=== PATIENT | female | born 1940 | race Caucasian/White ===

== ENCOUNTER 2023-12-05 11:44 | Outpatient (AMB) | payer MEDICARE, SELFPAY ==
--- NOTE | 2023-12-05 11:48 | MHC.PC.OV ---
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 Is last menstrual period known: No Post menopausal: No Patient : No Allergies diazepam [From Valium] Adverse Reaction (Mild, Verified 12/05/23 12:21) AMS Medication List - Last Reconciled 12/05/23 by Jessenia Joyner, MA[facility] albuterol sulfate 90 mcg/actuation inhalation apixaban (Eliquis) 5 mg PO BID bisoprolol fumarate 5 mg PO DAILY udapdmymzjn-rinacuudy-owrhjouo 200-62.5-25 mcg (Trelegy Ellipta) 1 ea inhalation DAILY furosemide 20 mg PO DAILY levothyroxine 100 mcg PO DAILY sacubitril-valsartan 49-51 mg (Entresto) 1 tab PO BID Tobacco use date assessed: 12/05/23 Fall risk assessment: 2 + Falls in past year Last assessed Fall Risk: 12/05/23 Dental Screening Dental Screen Date: 12/05/23 Did you have a dental visit in the last 12 months?: No Did you have a dental problem in the last 6 months where you did not have access to dental care?: No HPI HPI Comments History of Present Illness Details refill lasix, BB Pulm Card PFSH Family History (Updated 12/05/23 @ 11:56 by Emily Neumann) Mother Alcohol abuse Father Alcohol abuse Daughter FH: mental illness Social History Housing: House Patient Tobacco Use Status: Never used Tobacco e-Cigarette/Vaping Use: Never Used Second Hand Smoke Exposure: No Patient : No service: No Current occupational status: retired Current occupational exposures/hazards: No Cognitive needs: No Hearing needs: No Vision needs: Yes Questionnaire PHQ-9 Over the last 2 weeks, how often have you been bothered by any of the following problems? 1. Little interest or pleasure in doing things: not at all 2. Feeling down, depressed, or hopeless: not at all 3. Trouble falling or staying asleep, or sleeping too much: several days 4. Feeling tired or having little energy: several days 5. Poor appetite or overeating: not at all 6. Feeling bad about yourself - or that you are a failure or have let yourself or your family down: not at all 7. Trouble concentrating on things, such as reading the newspaper or watching television: not at all 8. Moving or speaking so slowly that other people could have noticed. Or the opposite - being so fidgety or restless that you have been moving around a lot more than usual: not at all 9. Thoughts that you would be better off or of hurting yourself in some way: not at all Total score: 2 61576 - PHQ-9 Billing: Yes Source: Developed by Drs. Artemio Vo, Lupe Simons, Nils Toro and colleagues, with an educational paloma from [employer]. Thrive Questionnaire Date Thrive assessed: 12/05/23 I am a: Patient What is your living situation today?: I have a steady place to live Within the past 12 months, did the food you bought not last and you didn't have the money to get more?: Never true Within the past 12 months, did you worry whether your food would run out before you got money to buy more?: Never true Do you have trouble paying for medicines?: No Do you have trouble getting transportation to medical appointments?: No Do you have trouble paying your heating and electricity bill?: No Do you have trouble taking care of your child, family member or friend?: No Do you have trouble with day-to-day activities such as bathing, preparing meals, shopping, managing finances, etc.?: No Are you currently unemployed and looking for a job?: No Are you interested in more education?: No Please select the resources that you would like help with: None Currently or been in a relationship where the following occur: No concerns reported THRIVE Score: 0 AUDIT C Alcohol Use Questionnaire (AUDIT-C) 1. How often do you have a drink containing alcohol?: Monthly or less 2. How many drinks containing alcohol do you have on a typical day when you are drinking?: 1 or 2 3. How often do you have six or more drinks on one occasion?: Never Total Score: 1 FLYNN-7 AMB Questionnaire FLYNN-7 Date FLYNN - 7 assessed: 12/05/23 Feeling nervous, anxious, or on edge: 0 = Not at all Not being able to stop or control worryin = Not at all Worrying too much about different things: 0 = Not at all Trouble relaxin = Not at all Being so restless that it is hard to sit still: 0 = Not at all Becoming easily annoyed or irritable: 0 = Not at all Feeling afraid as if something awful might happen: 0 = Not at all Total FLYNN-7 score (0-4 normal; 5-9 mild; 10-14 moderate; 15-21 severe): 0 Source: Developed by Drs. Artemio Vo, Lupe Simons, Nils Toro and colleagues, with an educational paloma from [employer]. FLYNN-7 Assessment Billing FLYNN-7 Assessment Tool: FLYNN-7 Assessment 80906 Physical exam (Primary Care) Vital Signs: Last Vital Signs Temp 98.1 F 12/05/23 11:57 Pulse 61 12/05/23 11:57 BP 108/58 L 12/05/23 11:57 Pulse Ox 96 12/05/23 11:57 Oxygen Delivery Method Room Air 12/05/23 11:57 BMI result Body Mass Index 35.4 Tobacco/Smoking Status: Tobacco use Status Tobacco use date assessed 12/05/23 12/05/23 12:00 Patient Tobacco Use Status Never used Tobacco 12/05/23 12:00 e-Cigarette/Vaping Use Never Used 12/05/23 12:00 PHQ-9: PHQ-9 Score PHQ-9: Total score 2 12/05/23 12:05 Thrive Assessment: Date of Thrive Assessment Date Thrive assessed 12/05/23 12/05/23 12:05 Currently or been in a relationship where the following occur: No concerns reported Assessment and Plan Assessment & Plan Medications: New bisoprolol fumarate 5 mg PO DAILY 90 tabs 0RF furosemide 20 mg PO DAILY 90 tabs 0RF Coding Additional Codes FLYNN-7 Assessment Billing - FLYNN-7 Assessment Tool: FLYNN-7 Assessment 54431 ([id number])
[2023-12-05 11:57] VITALS: BP 108/58; PULSE 61; TEMP 36.7; O2SAT 96; BMI 35.4
--- NOTE | 2023-12-05 12:32 | A.OFFVIS_ITS ---
Intake Vital Signs 12/05/23 11:57 12/05/23 12:35 Height 5 ft 1 in Weight 187 lb 2 oz BMI 35.4 35.4 BP 108/58 L Blood Pressure Location Rt brachial Position Sitting Pulse 61 Pulse Source Pulse Oximeter Temp 98.1 F Temp Source Temporal Artery Scan Pulse Oximetry (%) 96 Oxygen Delivery Method Room Air Intake Visit Reasons: farhat possible annual if able needed one since 11/13 Allergies amoxicillin Allergy (Mild, Verified 12/06/23 09:54) Rash diazepam [From Valium] Adverse Reaction (Mild, Verified 12/05/23 12:21) AMS lisinopril Adverse Reaction (Mild, Verified 12/06/23 09:54) Cough Medication List - Last Reconciled 12/05/23 by SHEIAL Peter- albuterol sulfate 90 mcg/actuation inhalation apixaban (Eliquis) 5 mg PO BID bisoprolol fumarate 5 mg PO DAILY odvpuzddrjg-bdqeheprj-qvhrtjsf 200-62.5-25 mcg (Trelegy Ellipta) 1 ea inhalation DAILY furosemide 20 mg PO DAILY levothyroxine 100 mcg PO DAILY sacubitril-valsartan 49-51 mg (Entresto) 1 tab PO BID Is last menstrual period known: Yes (age 52) Post menopausal: Yes Patient : No Do you need a note to return to daycare/school/sports/work: No HPI HPI Comments History of Present Illness Details 83 y/o F with HTN, HLD, Hypothyroid, 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, SSS s/p pacemaker, PVD, obesity, Vit D def, age related cataracts, CKD, CHF with secondary hyperaldosteronism, Afib with secondary hypercoaguable state, urinary incont, prolapsed bladder s/p sling, MDD, FLYNN, GERD, Osteoporosis, seasonal allergies s/p proplapsed bladder repair 1981, angiogram 2022, herniated lumbar disc repair 1965, Lt breast bx negative 1962, cataract surgery 2001, L hip replacement 2020, tubal ligation 1968, cholecystectomy 2022 Family hx: Father etoh, lung ca Mother breast ca, CHF, sudden cardiac Brother alive Afib Sister alive depression, childhood Sz 6 brothers, 4 sisters. 2 brothers, 1 si ster living 6 children. 5 living. Health Maintenance: Colon done in the past, declines future screen Mammo done in the past, declines future screen Dexa done in the past, declines future screen, + osteoporosis s/p fosamax PAP - no longer indicated Vaccines - UTD on Shingles, Zoster, Tdap, COVID + boosters, gets annual flu shot, Has had Prevnar 13 & 23 after age 65, has not had Prevnar 15 or 20 PFT 10/2022 Echo 11/29/23 Stress test 2021 Specialists: [facility] Dr Crowley in [place] routine fu, Echo done 2 days ago Here today for AWV. LABS TODAY SHOW NORMAL ELECTROLYTES, BUN 27, CREATININE 1.04, EGFR 50, HEMOGLOBIN A1C 5.6%, NORMAL LFTS, NORMAL ALBUMIN, VITAMIN-D 65.8, TSH 1.99, URINE MICROALBUMIN CREATININE RATIO NORMAL, DIRECT LDL PENDING Exam: Awake, alert, appears younger than stated age MMM RRR LS CTAB No edema BLE, skin intact, legs hairless, decreased PP with varicosities Mood and affect appropriate Plan: Cont all meds as directed Cont fu with Cards and Pulm Screening labs ordered today Get Flu shot and Pneumococcal vaccines RTO in Apr/May for sAWV, sooner as needed PFSH Medical History (Updated 12/06/23 @ 10:34 by Jessenia Joyner, [facility]) FH: cholecystectomy Cataract Pacemaker Surgical History (Updated 12/05/23 @ 13:29 by Emily Neumann) H/O discectomy History of hip replacement History of bladder surgery Family History (Updated 12/05/23 @ 13:17 by Emily Neumann) Mother Alcohol abuse Cancer Father Alcohol abuse Daughter FH: mental illness Asthma Thyroid disorder Questionnaire Medicare Wellness Checkup What is your age?: 80 or older What gender do you identify with?: female During the past 4 weeks, how much have you been bothered by emotional problems such as feeling anxious, depressed, irritable, sad or downhearted, and blue?: not at all During the past 4 weeks, has your physical & emotional health limited your social activities with family, friends, neighbors, or groups?: not at all During the past 4 weeks, how much bodily pain have you generally had?: very mild pain During the past 4 weeks, was someone available to help you if you needed & wanted help?: yes, as much as I wanted During the past 4 weeks, what was the hardest physical activity you could do for at least 2 minutes?: heavy Can you get to places out of walking distance without help? (For eg., can you travel alone on buses, taxis or drive your car?): Yes Can you go shopping for groceries or clothes without someone's help?: Yes Can you prepare your own meals?: Yes Can you do your housework without help?: Yes Because of any health problems, do you need the help of another person with your personal care needs such as eating, bathing, dressing or getting around the house?: No Can you handle your own money without help?: Yes During the past 4 weeks, how would you rate your health in general?: very good During the past 4 weeks how have things been going for you?: very well; could hardly better Are you having difficulties driving your car?: no Do you always fasten your seat belt when you are in a car?: yes, usually During past 4 weeks, have you been bothered by the following: never: Falling or dizzy when standing up, Sexual problems?, Trouble eating well?, Teeth or denture problems?, Problems using the telephone? and Tiredness or fatigue? Have you fallen 2 or more times in the past year?: No Are you afraid of falling?: No Are you a smoker?: no During the past 4 weeks, how many drinks of wine, beer, or other alcoholic beverages did you have?: no alcohol at all Do you exercise for about 20 minutes 3 or more times a week?: yes, some of the time Have you been given information to help with the following?: no: Hazards in your house that might hurt you? and no: Keeping track of your medications? How often do you have trouble taking medicines the way you have been told to take them?: I always take medicine as prescribed How confident are you that you can control & manage most of your health problems?: very confident What is your race?: White Activity of Daily Living Bathing - sponge bath, tub bath or shower: receives no assistance (gets in/out by self, if usual bathing means Dressing - getting clothes from closets & drawers, including inner/outer garments & fasteners.: gets clothes & gets completely dressed without help Toileting - going to the 'toilet room' for urine/bowel elimination & cleaning self/arranging clothes: goes to toilet room, cleans self, arranges clothes without help Transfer: moves in & out of bed and chair without help (may use support object) Continence: controls urination/bowel movements completely by self Feeding: feeds self without help Total Score: 0 Information obtained from: patient Using telephone: independent Traveling: independent Shopping: independent Preparing meals: independent Housework: independent Taking medicine: independent Managing money: independent PHQ-9 Over the last 2 weeks, how often have you been bothered by any of the following problems? 1. Little interest or pleasure in doing things: not at all 2. Feeling down, depressed, or hopeless: not at all 3. Trouble falling or staying asleep, or sleeping too much: not at all 4. Feeling tired or having little energy: not at all 5. Poor appetite or overeating: not at all 6. Feeling bad about yourself - or that you are a failure or have let yourself or your family down: not at all 7. Trouble concentrating on things, such as reading the newspaper or watching television: not at all 8. Moving or speaking so slowly that other people could have noticed. Or the opposite - being so fidgety or restless that you have been moving around a lot more than usual: not at all 9. Thoughts that you would be better off or of hurting yourself in some way : not at all Total score: 0 Depression Screening Interpretation: Negative Depression Screening Done: Yes 68540 - PHQ-9 Billing: Yes Source: Developed by Drs. Artemio Vo, Lupe Simons, Nils Toro and colleagues, with an educational paloma from [employer]. Physical Exam Vital Signs: Last Vital Signs Temp 98.1 F 12/05/23 11:57 Pulse 61 12/05/23 11:57 BP 108/58 L 12/05/23 11:57 Pulse Ox 96 12/05/23 11:57 Oxygen Delivery Method Room Air 12/05/23 11:57 BMI result Body Mass Index 35.4 Assessment & Plan Assessment & Plan (1) Encounter for annual wellness visit (AWV) in Medicare patient: Code(s): Z00.00 - Encounter for general adult medical examination without abnormal findings (2) HTN (hypertension): Comment: goal <130/80 controlled on current meds Code(s): I10 - Essential (primary) hypertension Qualifiers: Hypertension type: primary hypertension Qualified Code(s): I10 - Essential (primary) hypertension (3) Hypothyroid: Comment: euthyroid on labs today, continue levothyroxine Code(s): E03.9 - Hypothyroidism, unspecified Qualifiers: Hypothyroidism type: acquired Qualified Code(s): E03.9 - Hypot hyroidism, unspecified (4) Asthma-COPD overlap syndrome: Comment: stable w/o exacerbation continue Trelegy and ROSHAN Monitor for worsening SOB, cough. Get annual vaccines as recommended Managed by Pulm PFT 10/23/22 FEV1/FVC 56% Code(s): J44.89 - Other specified chronic obstructive pulmonary disease (5) Hyperlipidemia: Comment: LDL goal < 70 , not currently on statin, check LDL today. Code(s): E78.5 - Hyperlipidemia, unspecified Qualifiers: Hyperlipidemia type: mixed hyperlipidemia Qualified Code(s): E78.2 - Mixed hyperlipidemia (6) CHF (congestive heart failure): Comment: Fluid status euvolemic, no evidence of overload 06/12/22 Echo with EF 40-45% Echo 11/29/23 results pending Managed on entresto, bisoprolol. Encouraged daily wts, fluids restrictions and low Na+ diet. Managed by [employer] Code(s): I50.9 - Heart failure, unspecified Qualifiers: Heart failure type: systolic Heart failure chronicity: chronic Qualified Code(s): I50.22 - Chronic systolic (congestive) heart failure (7) Afib: Comment: with secondary hypercoaguable state on BB and Eliquis managed by [facility] Code(s): I48.91 - Unspecified atrial fibrillation Qualifiers: Atrial fibrillation type: paroxysmal Qualified Code(s): I48.0 - Paroxysmal atrial fibrillation (8) Secondary hypercoagulability disorder: Comment: see Afib Code(s): D68.69 - Other thrombophilia (9) Secondary hyperaldosteronism: Comment: d/t CHF. Pt with activation of RAAS as e/b entresto, stable. Monitor for renal function signs of hypoperfusion. Code(s): E26.1 - Secondary hyperaldosteronism (10) PVD (peripheral vascular disease): Comment: 11/13/23 Quantaflow mild 0.89-0.60, Left foot 0.79 right foot 1.11 e/b above results, encouraged good foot care, instructed pt to monitor s/sx of skin breakdown Code(s): I73.9 - Peripheral vascular disease, unspecified (11) Osteoporosis: Comment: on last DEXA s/p fosomax, denies future imaging. Fall risk preventions, Ca + Vit D Code(s): M81.0 - Age-related osteoporosis without current pathological fracture Qualifiers: Osteoporosis type: age-related Presence of current pathological fracture: without current pathological fracture Qualified Code(s): M81.0 - Age- related osteoporosis without current pathological fracture (12) Negative depression screening: Comment: hx of MDD, negative screening today, not on meds Code(s): Z13.31 - Encounter for screening for depression (13) Encounter for screening examination for mental health and behavioral disorders: Code(s): Z13.30 - Encounter for screening examination for mental health and behavioral disorders, unspecified (14) Obesity with serious comorbidity: Comment: with HTN and CHF BMI > 35 Code(s): E66.9 - Obesity, unspecified Qualifiers: Obesity type: due to excess calories Obesity classification: adult class 2 (BMI 35 - 39.9) Body mass index: BMI 35.0-35.9 Qualified Code(s): E66.01 - Morbid (severe) obesity due to excess calories; Z68.35 - Body mass index [BMI] 35.0-35.9, adult (15) Pacemaker: Comment: SA node dysfunction with permanent pacemaker. Denies palps. Monitor for arrhythmia, cont routine fu with Cards. Code(s): Z95.0 - Presence of cardiac pacemaker (16) Urinary incontinence: Code(s): R32 - Unspecified urinary incontinence Qualifiers: Urinary Incontinence type: mixed stress and urge incontinence Qualified Code(s): N39.46 - Mixed incontinence Plan: . Plan . Orders: Orders Comprehensive Met. Panel 12/05/23 E78.5 - Hyperlipidemia, unspecified, I50.9 - Heart failure, unspecified Hemoglobin A1c 12/05/23 E78.5 - Hyperlipidemia, unspecified, I50.9 - Heart failure, unspecified LDL Cholesterol Direct 12/05/23 E78.5 - Hyperlipidemia, unspecified, I50.9 - Heart failure, unspecified TSH reflex Free T4 12/05/23 E78.5 - Hyperlipidemia, unspecified, I50.9 - Heart failure, unspecified Vitamin D 25-OH Total 12/05/23 E78.5 - Hyperlipidemia, unspecified, I50.9 - Heart failure, unspecified Microalbumin, Random (w Creat) 12/05/23 E78.5 - Hyperlipidemia, unspecified, I50.9 - Heart failure, unspecified Medications: New bisoprolol fumarate 5 mg PO DAILY 90 tabs 0RF furosemide 20 mg PO DAILY 90 tabs 0RF Patient Instructions: RTO in Apr/May fo sAWV, sooner as needed. Walk-In Care (Urgent Care): We Make it Easy Walk-in for urgent medical issues such as: ? Seasonal Allergies ? Insect Bites ? Cough ? Diarrhea ? Acute Asthma Attacks ? Back, Knee or Joint Pain ? Ear Infection ? Fever without a Rash ? Headaches ? Nausea ? [place] Eye, Rash or Skin Irritation ? Sore Throat ? Sports Physicals ? Vomiting Most insurances are accepted. Patients do not need to be part of the [facility] to seek care at the walk-in clinic. Locations [facility] , [place] [address] ? [phone] [facility] [place] Walk-In Care in [place] provides services to ages 18 and over. Open Sunday-Sunday: 8 a.m. to 5 p.m. and Sunday: 9 a.m. to 3 p.m.* *Hours may vary due to staffing availability. To confirm Walk-In Care hours in [place], please call [phone]. [address] [place] [address] ? [phone] [facility] [place] Walk-In Care in [place] provides services to ages 12 and over. Open Sunday-Sunday: 8 a.m. to 5 p.m. Hours may vary due to staffing availability. To confirm Walk-In Care hours in [place], please call [phone]. LABORATORY SERVICES: [facility] Lab ? Primary Location [address] [place] [address] Sunday through Sunday 6:00 AM ? 5:00 PM Sunday 7:00 AM ? 11:00 AM* [phone] The [facility] Lab is centrally located near the front entrance of the [facility] for easy outpatient access. Convenient parking is provided for outpatients. *Hours may vary due to staffing availability. To confirm Laboratory hours for any location, please call [phone]. Offsite Location For your convenience, we offer offsite laboratory draw stations at the following locations: [address] [place] [address] ? [facility] [address] [facility], [address] Sunday through Sunday 7:30 AM ? 1:00 PM* [phone] *Hours may vary due to staffing availability. To confirm Laboratory hours for any location, please call [phone]. [place] ? [address] Sunday through Sunday 6:00 AM ? 3:30 PM* Sunday 6:30 AM ? 3 PM* [phone] *Hours may vary due to staffing availability. To confirm Laboratory hours for any location, please call [phone] [place] [address] Sunday through Sunday 7:30 AM ? 4:00 PM* [phone] *Hours may vary due to staffing availability. To confirm Laboratory hours for any location, please call [phone] [place] [address] Sunday through 9:00 AM ? 4:00 PM* *Hours may vary due to staffing availability. To confirm Laboratory hours for any location, please call [phone]. Appointments are not necessary. Walk-ins are welcome. Like all the departments throughout the [facility], our Lab undergoes frequent reviews to ensure the quality and accuracy of test results, and our staff takes special pride in its status as a nationally accredited facility. Patient Portal: ONE PATIENT. ONE RECORD. BETTER CARE. [facility] has a fully integrated, cutting- edge mobile electronic health information system that has revolutionized the way we care for our patients and manage our organization. This system improves communication and coordination enabling us to provide safe, higher-quality care, and an overall positive experience for staff and patients. Our first priority, as always, is to deliver the highest quality care possible. The system is running in the background supporting that priority. This portal is for all [facility] services and practices. If you are experiencing any technical difficulties with enrolling or logging into the Patient Portal please complete the [facility] Patient Portal Technical Support Form. [facility] now offers a new secure on-line interactive tool for patients to review their health information ? Patient Portal. This interactive web portal will enable patients and their families to take an active role in their care by providing easy, secure access to their health information via the internet. The Patient Portal provides patients with instant access to their health information, including laboratory results, medications, allergies, demographic information, visit history, and more. In addition to managing their own care, parents and health care proxies with authorized consent will appreciate the ability to access the records of those individuals for whom they provide care. Please note: if you wish to gain access (Proxy) to another patient?s portal, you will be required to come to the Medical Records Department in person at [facility]. Both the patient giving proxy access and the proxy will need to provide photo identification and complete the appropriate authorization. The Patient Portal also allows track their appointments online. The [facility] Patient Portal also saves patients time by allowing them to submit updates to their demographic and contact information prior to their visits. Portal email notifications will also alert patients to any new activity on their portal, such as test results and new appointments. In order to initially enroll in the [facility] Patient Portal, you will need to enter some required information including the following: ? your [facility] Medical Record number ? your personal home email address ? name ? date of Please note: In order to enroll in the [facility] Patient Portal, we need to have your email address on file in your electronic medical record. The email address needs to be specific for one person (yourself) in order for your Portal enrollment to be successful. You can update your email address in person with our Registration staff when you are registering for a hospital visit. Otherwise, you will need to come to the Health Information Management (Medical Records) Department at [facility]. We are open from Sunday ? Sunday from 7:30 a.m. ? 4:30 p.m. You will be required to present a photo id. Once you have successfully enrolled in the Patient Portal, you will receive a one-time user id and password for the Portal, sent to your email address. This will allow you to log into the Patient Portal within 99 hrs and reset your own logon id and password, and define personal security questions. Once your permanent login and password have been set, you can log into the [facility] Patient Portal at any time via the blue button above or from the Portal Logon button on any page of the [facility] website. [facility] encourage all of our patients to enroll in Patient Portal as it presents a valuable opportunity for patients and their families to actively participate in their care and stay healthy Welcome to [facility]. We look forward to working with you. Quality Reporting (2019) Adult ([facility] 138//) Smoking risk assessment performed?: Yes Depression screening performed: Yes Screen Results: Yes Negative screen Recommended changes: lifestyle, weight reduction, dietary, physical activity and alcohol moderation Recommended changes not done: EKG (active w cards ) Systolic BP not done?: Yes Diastolic BP not done?: Yes BMI High - Follow Up: Yes High-plan Sexual Activity Screening ([facility] 153) Sexually active?: No Immunizations ([facility] 147, 117) Annual Influenza Vaccine: Yes Fall Risk Screening ([facility] 139) Last assessed Fall Risk: 12/05/23 Fall risk assessment: 1 Fall in past year Dementia Assessment ([facility] 149) Cognitive assessment recorded: Yes (6cit done today missed one word on delayed recall See scanned doc) Assessment of cognition with standardized tool: Yes Depression/Bipolar (159/160/161/177) PHQ-9: Total score: 0 Heart Failure/CAD ([facility] 90/135/144/145) CANDE inhib or ARB not prescribed: Yes Pacemaker?: Yes Beta sandra therapy not ordered?: No Coding Level of Care Code Medicare First (G0438) Diagnoses Encounter for annual wellness visit (AWV) in Medicare patient Z00.00 Primary hypertension I10 Hypertension type: primary hypertension Acquired hypothyroidism E03.9 Hypothyroidism type: acquired Asthma-COPD overlap syndrome J44.89 Mixed hyperlipidemia E78.2 Hyperlipidemia type: mixed hyperlipidemia Chronic systolic congestive heart failure I50.22 Heart failure type: systolic Heart failure chronicity: chronic Paroxysmal atrial fibrillation I48.0 Atrial fibrillation type: paroxysmal Secondary hypercoagulability disorder D68.69 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 PVD (peripheral vascular disease) I73.9 Age-related osteoporosis without current pathological fracture M81.0 Osteoporosis type: age-related Presence of current pathological fracture: without current pathological fracture Negative depression screening Z13.31 Encounter for screening examination for mental health and behavioral disorders Z13.30 Class 2 severe obesity due to excess calories with serious comorbidity and body mass index (BMI) of 35.0 to 35.9 in adult E66.01; Z68.35 Obesity type: due to excess calories Obesity classification: adult class 2 (BMI 35 - 39.9) Body mass index: BMI 35.0-35.9 Pacemaker Z95.0 Mixed stress and urge urinary incontinence N39.46 Urinary Incontinence type: mixed stress and urge incontinence CPT Codes Advance Care Planning - Time spent: 1-15 minutes, not on file ([id number]) Advance Care Planning Advance Care Planning discussion: Exists, not on file Date of discussion: 12/05/23 Who was present: self Forms completed: Health Care Proxy and MOLST Time spent: 1-15 minutes, not on file Actual minutes spent: 5
[2023-12-05 12:35] VITALS: BMI 35.4
== END 2023-12-05 13:11 | disposition home or self-care (01) ==
PROVIDERS: PCP Nurse Practitioner Family; Visit Provider Nurse Practitioner Family
DX: Z00.00 Encounter for general adult medical examination without abnormal findings (principal); I50.22 Chronic systolic (congestive) heart failure; D68.69 Other thrombophilia; E26.1 Secondary hyperaldosteronism; I73.9 Peripheral vascular disease, unspecified; I48.0 Paroxysmal atrial fibrillation; I10 Essential (primary) hypertension; E03.9 Hypothyroidism, unspecified; E66.01 Morbid (severe) obesity due to excess calories; J44.89 Other specified chronic obstructive pulmonary disease; E78.2 Mixed hyperlipidemia; Z68.35 Body mass index [BMI] 35.0-35.9, adult
CPT/HCPCS: 1124F; G0438

== ENCOUNTER 2023-12-05 12:59 | Outpatient (REF) | payer MEDICARE, SELFPAY ==
[2023-12-05 14:25] LABS: Estimated Average Glucose 114 mg/dL; Hemoglobin A1c % 5.6 % (<6.0)
[2023-12-05 14:38] LABS: Alanine Aminotransferase 32 U/L (0-31); Alkaline Phosphatase 80 U/L (39-117); Anion Gap 11 (12-20); Aspartate Amino Transferase 23 U/L (5-31); Bilirubin Total 0.5 mg/dL (0.0-1.0); Blood Urea Nitrogen 27 mg/dL (9-16); Calcium 9.3 mg/dL (8.4-10.2); Carbon Dioxide 26 mmol/L (22-29); Chloride 108 mmol/L (96-108); Estimated Glomerular Filt Rate 50; Glucose Random 101 mg/dL (60-115); Sodium 141 mmol/L (135-145)
[2023-12-05 14:50] LABS: Creatinine Urine 64.28 mg/dL; Microalbum/Creatinine Ratio Ur 10.8 ug/mg cr (<30)
[2023-12-05 14:57] LABS: TSH reflex Free T4 1.99 uIU/mL (0.32-4.0); Vitamin D 25-OH Total 65.8 ng/mL (>30)
[2023-12-07 11:03] LABS: LDL Cholesterol Direct 101 mg/dL (<100)
== END 2023-12-05 13:00 | disposition home or self-care (01) ==
LOC: HO.WFDLDS 12:59
PROVIDERS: Visit Provider Nurse Practitioner Family
DX: I50.9 Heart failure, unspecified (principal); E78.5 Hyperlipidemia, unspecified; Z13.1 Encounter for screening for diabetes mellitus
CPT/HCPCS: 36415; 80053; 82043; 82306; 82570; 83036; 83721; 84443

== ENCOUNTER 2024-04-30 09:44 | Outpatient (AMB) | payer MEDICARE, SELFPAY ==
--- NOTE | 2024-04-30 09:49 | AM.OFFVISMDC ---
Intake Vital Signs 04/30/24 09:55 Height 5 ft 1 in Weight 188 lb BMI 35.5 BP 134/72 Blood Pressure Location Lt brachial Position Sitting Respiration 14 Pulse 71 Pulse Source Pulse Oximeter Pulse Oximetry (%) 95 Oxygen Delivery Method Room Air Intake Visit Reasons: ROUTINE FU 30 MIN- see bulletin board Intake Note: annual physical Upholstery Covers Inspector Required: No Allergies amoxicillin Allergy (Mild, Verified 04/30/24 10:11) Rash diazepam [From Valium] Adverse Reaction (Mild, Verified 04/30/24 10:11) AMS lisinopril Adverse Reaction (Mild, Verified 04/30/24 10:11) Cough Medication List - Last Reconciled 04/30/24 by Jessenia Joyner, PURE PAK MACHINE OPERATOR- albuterol sulfate 90 mcg/actuation inhalation apixaban (Eliquis) 5 mg PO BID bisoprolol fumarate 5 mg PO DAILY lvwphwxyvym-hksztdoqm-rklsagdi 200-62.5-25 mcg (Trelegy Ellipta) 1 ea inhalation DAILY furosemide 20 mg PO DAILY levothyroxine 100 mcg PO DAILY sacubitril-valsartan 97-103 mg (Entresto) 1 tab PO BID Do you need a note to return to daycare/school/sports/work: No HPI HPI Comments History of Present Illness Details 84 y/o F with HTN, HLD, Hypothyroid, COPD, SSS s/p pacemaker, PVD, obesity, Vit D def, age related cataracts, CKD, CHF with secondary hyperaldosteronism, Afib with secondary hypercoaguable state, urinary incont, prolapsed bladder s/p sling, MDD, FLYNN, GERD, Osteoporosis, seasonal allergies s/p proplapsed bladder repair 1981, angiogram 2022, herniated lumbar disc repair 1965, Lt breast bx negative 1962, cataract surgery 2001, L hip replacement 2020, tubal ligation 1968, cholecystectomy 2022 Family hx: Father etoh, lung ca Mother breast ca, CHF, sudden cardiac Brother alive Afib Sister alive depression, childhood Sz 6 brothers, 4 sisters. 2 brothers, 1 sister living 6 children. 5 living. Health Maintenance: Colon done in the past, declines future screen Mammo done in the past, declines future screen Dexa done in the past, declines future screen, + osteoporosis s/p fosamax PAP - no longer indicated Vaccines - UTD on Shingles, Zoster, Tdap, COVID + boosters, Pneumococcal, RSV, gets annual flu shot PFT 10/2022 Echo 11/29/23 Stress test 2021 Specialists: Pulm Dr Armstrong Card Dr Crowley in [place] routine fu, Echo Summer 2023 Here today for routine follow up of chronic conditions. Her hypertension and hyperlipidemia are well controlled on current medications. Her COPD is managed by pulmonology. She does report taking her inhalers as directed. She is up-to-date on all of her vaccinations. She has noticed a mucus plug in the back of her throat in the morning upon waking along with a runny nose. Seemed to start seasonally. Is not using Flonase or an antihistamine. She feels like her COPD as well managed. She has a an appointment with pulmonology next month. atrial fibrillation, which has been active, noted by 100% pacing by her pacemaker. She denies any recent symptoms of heart failure such as edema or chest pain, although her Entresto dosage was recently adjusted to 97/103 mg by her clinical science consultant due to increased atrial fibrillation activity. There is no history of dizziness or syncope. She will have labs done for Cardiology in July. Her mood is stable She denies any symptoms associated with hypothyroidism. Taking levothyroxine as directed. Euthyroid based on the most recent labs. Unfortunately she did have a mechanical fall caused by her dog and fractured her right wrist 02/01/2024. She did undergo physical and occupational therapy. The wrist is healing well. She did not need surgical intervention. She does report some swelling to the wrist after repetitive motions such as making apple pies for Thanksgiving. She does have 2 cystic skin lesions 1 on her right cheek and 1 below her left orbit that has been present for years without change. She has never had them evaluated. She does not wish to have them evaluated just wanted to make mention of these. Healthcare proxy and MOLST brought in today. Scanned into chart. The patient was a full code however she does not want dialysis. Results Labs from 12/05/2023 NORMAL ELECTROLYTES, BUN 27, CREATININE 1.04, EGFR 50, HEMOGLOBIN A1C 5.6%, NORMAL LFTS, NORMAL ALBUMIN, VITAMIN-D 65.8, TSH 1.99, URINE MICROALBUMIN CREATININE RATIO NORMAL, DIRECT LDL 101 - Labs: Hemoglobin A1C 5.8% Social History - Resides in a family home but maintains activity in daily chores such as caring for animals. - Exercises by walking her dog and performing household tasks. - Nutritional history includes concern over potassium intake due to recent adjustment in cardiac medication; restrictive on banana and tomato consumption. - Family present for support, with recent involvement in grandchildren's activities. Exam: General: Well developed, well nourished, in no acute distress. Appears younger than stated age. Head: Normocephalic, atraumatic. Eyes: Pupils are equal, round and reactive to light and accommodation. Conjunctivae are clear. Vision grossly normal. Ears: Tympanic membranes clear bilaterally, external auditory canal within normal limits. Right TM shows congestion consistent with allergies. Nose: Patent, without discharge. Nasal passages are swollen with more discharge on the left side. Mouth: There are no ulcers or lesions noted. No inflammation, no post nasal drip, no plaques nor exudates. Neck: Supple, no adenopathy or thyromegaly. No tenderness or lumps noted. Lungs: Clear to auscultation bilaterally, diminished throughout. No rales, rhonchi or wheeze noted.. Heart: Regular rate and rhythm. No murmurs, click, rubs or gallops are noted. Musculoskeletal: Joints are nontender, without swelling, redness, or effusions. Range of motion is observed to be normal.. Extremities: No clubbing, cyanosis nor edema is noted. No edema BLE, skin intact, legs hairless, decreased PP with varicos Neurologic: Gait and station normal. Cranial Nerves 2-12 intact. Motor strength grossly symmetrical and intact. No sensory loss. Balance normal. Skin: No rashes, ulcers noted. Turgor is good. Skin color is good. Hair and nails are without abnormalities. Noted two small cystic lesions, 1 under the left orbit and one on the right cheek. Psych: Normal eye contact, affect and mood appropriate, and normal interactions. Patient is alert and appropriate to context. Plan 1. Atrial Fibrillation: - Monitor for symptoms of heart failure. 2. COPD: - Encourage allergen avoidance and introduce trial of Loratadine for seasonal symptoms. 3. Heart Failure: - Follow dietary restrictions for potassium as discussed. 4. Allergic Rhinitis: - If effective, continue through symptomatic seasons with caution regarding drug interactions. MOLST AND HCP SCANNED INTO CHART Patient was informed and verbally consented to the use of an ambient scribe for clinic note documentation during this visit. Discussion Notes During the visit, we discussed her current management for atrial fibrillation and COPD. The importance of strict adherence to prescribed medications and recognition of heart failure symptoms such as swelling and weight changes was emphasized. In light of the recent medication adjustment, we discussed the dietary potassium restriction needed. We talked about using Loratadine for allergy management due to seasonal respiratory symptoms and reaffirmed avoiding other ufdv-aim-dluiuky medications without consultation. Follow-up with cardiology and pulmonology for continual management was discussed. She was advised on monitoring trends in weight and symptoms. Patient Instructions - Continue taking prescribed Entresto, Trelegy, and Albuterol. - Begin Loratadine trial as discussed and monitor for symptom improvement. - Monitor dietary potassium intake and pressure to minimize it. - Attend regular check-ups with clinical science consultant and package dyeing machine operator. - Monitor respiratory status and seek care if symptoms of COPD exacerbate. RTO 6 months for AWV, sooner PRN This note is constructed using voice recognition software. While every effort has been made to ensure accuracy in lead sustainability specialist, still errors may have been included Sometimes, these errors may affect the content or meaning of the given sentence . Total time spent caring for the patient today was 45 minutes. This includes time spent before the visit reviewing the chart, time spent during the visit, and time spent after the visit on documentation [facility] Medical History (Updated 04/30/24 @ 14:32 by Jessenia Joyner, [facility]) FH: cholecystectomy Cataract Pacemaker Surgical History (Updated 12/05/23 @ 13:29 by Emily Neumann MA) H/O discectomy History of hip replacement History of bladder surgery Family History (Updated 12/05/23 @ 13:17 by Emily Neumann MA) Mother Alcohol abuse Cancer Father Alcohol abuse Daughter FH: mental illness Asthma Thyroid disorder Questionnaire PHQ-9 Over the last 2 weeks, how often have you been bothered by any of the following problems? 1. Little interest or pleasure in doing things: not at all 2. Feeling down, depressed, or hopeless: not at all 3. Trouble falling or staying asleep, or sleeping too much: several days 4. Feeling tired or having little energy: several days 5. Poor appetite or overeating: not at all 6. Feeling bad about yourself - or that you are a failure or have let yourself or your family down: several days 7. Trouble concentrating on things, such as reading the newspaper or watching television: not at all 8. Moving or speaking so slowly that other people could have noticed. Or the opposite - being so fidgety or restless that you have been moving around a lot more than usual: not at all 9. Thoughts that you would be better off or of hurting yourself in some way: not at all Total score: 3 Depression Screening Interpretation: Negative Depression Screening Done: Yes 48301 - PHQ-9 Billing: Yes Source: Developed by Drs. Artemio Vo, Lupe Simons, Nils Toro and colleagues, with an educational paloma from [employer]. Physical Exam Vital Signs: Last Vital Signs Pulse 71 04/30/24 09:55 Resp 14 04/30/24 09:55 BP 134/72 04/30/24 09:55 Pulse Ox 95 04/30/24 09:55 Oxygen Delivery Method Room Air 04/30/24 09:55 BMI result Body Mass Index 35.5 Office Procedures Office Procedure Misc Details: Complex EM visit Add On G2211 Office Procedure Billing Code: AMB Procedure Billing Code (Complex EM visit Add On G2211) Results AMB Hemoglobin A1c AMB Hemoglobin A1c 5.8 % Last Edit by Ronal Reynaga MA on 04/30/24 10:09 Results Reviewed Results Reviewed: Laboratory Last Values Hgb A1c (Clinic) 5.8 % (4.0-6.0) 04/30/24 10:08 Assessment & Plan Assessment & Plan (1) Hypothyroid: Comment: euthyroid on labs , continue levothyroxine Code(s): E03.9 - Hypothyroidism, unspecified Qualifiers: Hypothyroidism type: acquired Qualified Code(s): E03.9 - Hypothyroidism, unspecified (2) ACP (advance care planning): Code(s): Z71.89 - Other specified counseling (3) HTN (hypertension): Comment: goal <130/80 controlled on current meds Code(s): I10 - Essential (primary) hypertension Qualifiers: Hypertension type: primary hypertension Qualified Code(s): I10 - Essential (primary) hypertension (4) Seasonal allergies: Code(s): J30.2 - Other seasonal allergic rhinitis (5) Right wrist fracture: Code(s): S62.101A - Fracture of unspecified carpal bone, right wrist, initial encounter for closed fracture (6) CKD stage 3a, GFR 45-59 ml/min: Comment: gfr 50 on arb Code(s): N18.31 - Chronic kidney disease, stage 3a Plan . Orders: Orders TSH reflex Free T4 07/05/24 E03.9 - Hypothyroidism, unspecified AMB Hemoglobin A1c Today Z13.9 - Encounter for screening, unspecified Medications: Refilled bisoprolol fumarate 5 mg PO DAILY 90 tabs 0RF Patient Instructions: Patient Instructions - Continue taking prescribed Entresto, Trelegy, and Albuterol. - Begin Loratadine trial as discussed and monitor for symptom improvement. - Monitor dietary potassium intake and pressure to minimize it. - Attend regular check-ups with clinical science consultant and package dyeing machine operator. - Monitor respiratory status and seek care if symptoms of COPD exacerbate. About the [facility] Program The [facility] Program provides free health insurance information, counseling, and assistance to people who are eligible for Medicare and their caregivers. Certified, trained [facility] counselors, who are often volunteers, work with participants to help explore Medicare plan options and uncover ways to save money on both health insurance and prescription drug costs.?? How can a [facility]INE Counselor help me?? A [facility]INE counselor will help you:? Understand your Medicare and other health insurance and drug coverage options Find the right coverage for you? Find ways you can save money on your prescription drugs and health insurance? Help you apply for programs that will lower your costs? Provide information to help you make the best coverage selection? Find a [facility]INE counselor SHINE Counselors are available to meet in person at the following locations:?? Senior centers?? [facility]? [facility]INE counselors are also available to meet by telephone. You can find a SHINE counselor near you by calling [employer] at , or by exploring the [facility] staff directory. Quality Reporting (2019) Adult ([facility] 138/2/22/69) Smoking risk assessment performed?: Yes Depression/Bipolar (159/160/161/177) PHQ-9: Total score: 3 Coding Level of Care Code Est Pt Level 5 (99741) Diagnoses Acquired hypothyroidism E03.9 Hypothyroidism type: acquired ACP (advance care planning) Z71.89 Primary hypertension I10 Hypertension type: primary hypertension Seasonal allergies J30.2 Right wrist fracture S62.101A CKD stage 3a, GFR 45-59 ml/min N18.31 CPT Codes Advance Care Planning - Time spent: 1-15 minutes, on File ([id number]) Office Procedure - Office Procedure Billing Code: AMB Procedure Billing Code ([id number]) Additional Codes PHQ-9 - 39843 - PHQ-9 Billing: Yes ([id number]) Advance Care Planning Advance Care Planning discussion: Completed/Scanned Date of discussion: 04/30/24 Forms completed: Health Care Proxy and MOLST Time spent: 1-15 minutes, on File Actual minutes spent: 5
[2024-04-30 09:55] VITALS: BP 134/72; PULSE 71; RESP 14; O2SAT 95; BMI 35.5
== END 2024-04-30 10:45 | disposition home or self-care (01) ==
PROVIDERS: PCP Nurse Practitioner Family; Visit Provider Nurse Practitioner Family
DX: I12.9 Hypertensive chronic kidney disease with stage 1 through stage 4 chronic kidney disease, or unspecified chronic kidney disease (principal); N18.31 Chronic kidney disease, stage 3a; E03.9 Hypothyroidism, unspecified; J30.2 Other seasonal allergic rhinitis; S62.101A Fracture of unspecified carpal bone, right wrist, initial encounter for closed fracture; Z00.00 Encounter for general adult medical examination without abnormal findings

== ENCOUNTER → 2024-04-30 09:44 | Outpatient (BNVA) | payer MEDICARE, SELFPAY | PROVIDERS: PCP Nurse Practitioner Family; Visit Provider Nurse Practitioner Family | DX: Z13.1 Encounter for screening for diabetes mellitus (principal); E03.9 Hypothyroidism, unspecified; J30.2 Other seasonal allergic rhinitis; I12.9 Hypertensive chronic kidney disease with stage 1 through stage 4 chronic kidney disease, or unspecified chronic kidney disease; N18.31 Chronic kidney disease, stage 3a; S62.101D Fracture of unspecified carpal bone, right wrist, subsequent encounter for fracture with routine healing | CPT/HCPCS: 83036; 96127; 99212 ==

== ENCOUNTER 2024-06-25 09:09 | Outpatient (REF) | payer MEDICARE, SELFPAY ==
--- OUTSIDE RECORDS SUMMARY | 2024-06-25 09:33 | XMS_ITS ---
Author Organization [facility] Address [address] [place] [address] [place] [phone] Care Team Providers Care Emergency Dept Tech Name Role Phone BRI MAC Primary Care Provider ALLERGIES Allergen (clinical drug ingredient) Drug/Non Drug Allergy documented on EMR Reaction Allergy Type Onset Date Status lisinopril Lisinopril cough Drug Allergy Activ e diazepam Valium Hallucinations Drug Allergy Ac tive amoxicillin Amoxicillin Rash Drug Allergy Act britt REASON FOR VISIT Lab Review MEDICATIONS Medication SIG (Take, Route, Frequency, Duration) Notes Start Date End Date Status Lasix 20 MG 1 tablet Orally Once a day Active Trelegy Ellipta 200-62.5-25 MCG/ACT 1 puff Inhalation Once a day Active Colace 100 MG 1 capsule as needed Orally Once a day Active Bisoprolol Fumarate 5 MG 1 tablet Orally Once a day Active Vitamin D3 50 MCG (1999 UT) 2 tablets Orally Once a day Active Albuterol Sulfate HFA 108 (90 Base) MCG/ACT 1 puff as needed Inhalation every 4 hrs Active Synthroid 88 MCG 1 tablet in the morning on an empty stomach Orally Once a day Not-Taking Levothyroxine Sodium 100 MCG TAKE 1 TABLET BY MOUTH EVERY DAY IN THE MORNING ON EMPTY STOMACH for 90 Active Albuterol Sulfate HFA 108 (90 Base) MCG/ACT 1 puff as needed Inhalation every 4 hrs for 90 days 12/26/2022 Active PreserVision AREDS 2 - as directed Orally Active Eliquis 5 MG 1 tablet Orally Twic e a day Active Entresto 49-51 MG 1 tablet Orally Twic e a day Active SOCIAL HISTORY Tobacco Use: Social History Observation Description Date Details (start date - stop date) Former Smoker NA - 06/04/2002 Sex Assigned At : Social History Observation Description Sex Assigned At Unknown Tobacco Use/Smoking Question Answer Notes Tobacco use: former smoker When did you stop smoking? 06/04/2002 How long has it been since y ou last smoked? > 10 years Additional Findings: Tobacco User Modera te cigarette smoker (10-19 cigs/day) Section Notes: Lives in [place], [place] with daughter & grand-daughter VITAL SIGNS Height 61 in 11/01/2023 Height-cm 154.94 cm 11/01/2023 Encounters Encounter Location Date Provider Diagnosis [address] [id number] 11/01/2023 BRI MAC Hypothyroidism (acquired) E03.9 and Chronic obstructive asthma (with obstructive pulmonary disease) J44.9 ASSESSMENTS Encounter Date Diagnosis Assessment Notes Treatment Notes Treatment Clinical Notes Section Notes 11/01/2023 Hypothyroidism (acquired) (ICD-10 - E03.9) Condition is stable and well controlled on current treatment. No changes made, medication(s) refilled as indicated 11/01/2023 Chronic obstructive asthma (with obstructive pulmonary disease) (ICD-10 - J44.9) Condition is stable and well controlled on current treatment. No changes made, medication(s) refilled as indicated 11/01/2023 Other Total time spen t with patient 20 minutes which includes face to face visit, education and coordination of care. PLAN OF TREATMENT Treatment Notes Assessment Notes Hypothyroidism (acquired) Condition is s table and well controlled on current treatment. No changes made, medication(s) refilled as indicated Chronic obstructive asthma ( with obstructive pulmonary disease) Condition is stable and well controlled on current treatment. No changes made, medication(s) refilled as indicated Other Total time spent wit h patient 20 minutes which includes face to face visit, education and coordination of care. Next Appt Details Follow Up: prn, Reason: will not be staying as member Progress Notes * KIARRA SIMSALFREDODOB:[birth year] (83 yo F)Acc No.[id number]:11/01/2023 Progress Note Patient:??LA NENA SIMS Provider:??Bri Mac DNP :1940?Age:83 Y?Sex:Fe male Date:11/01/2023 Phone: Address:[address] [place] [facility] [id number] Subjective: * Chief Complaints: * ?Lab Review * HPI: ?Patient Care Team:? The patient consents to HIPAA compliant telehealth visit using video platform within EHR system. The patient states they are in a private location in their home and the provider is located in the office in a private room. ?Crystalizer Tender:??Dr. Crowley in [place].?Wader Boot Top Assembler:??Dr. Steen in [place].?Visit info:? La Nena presents today, via Telehealth, for f/u lab review. ?She will be unable to stay & is currently looking for new PCP. She is scheduled for CPE next month, will need to cancel. * ROS:?all systems reviewed and are non-contributory unless specified in the HPI. * Medical History:?? * Civil Engineering Manager History:?Menstrual history: ?Age of Menarche:??9 ?Age of Menopause:??52 ?Last pap smear date??Over 10 years ago - last done, normal per pt..?Last mammogram date??Over 10 years ago - Normal per pt..?? * OB History:? History:?Total pregnancies:??6 ?Full-term pregnancies:??6 * Surgical History:??Prolapsed Bladder 1982Angiogram (Heart) ngiogram(Vascular) 2022Lumbar Surgery (Herniated Discs) 1966Biopsy - Lt. Breast Lump 1963Cataract Surgery 2002Colonoscopy Echocardiogram [id number] jean-baptiste 2011Lt. Hip Replacement ulmonary Function Test Due 10/23/22Sigmoidoscopy Stress Test 2021Tubal Ligation 1969Cholecystectomy 12/2022 * Hospitalization/Major Diagno stic Procedure:?? * Family History:??Father: dec eased, Alcoholism, Lung CA.??Mother: , Breast CA, CHF and Sudden Cardiac .??Brother: alive, Atrial Fib..??Sister: alive, Depression, Seizures as child.??Bladder CA: alive, Bladder CA.??6 brother(s) , 4 sister(s) . .?? 2 brothers and 1 sister living ?Has 6 children, 5 living. * Social History:?Tobacco Use:?Tobacco Use/Smoking?Tobacco use:??former smoker ?When did you stop smoking???06/04/2002 ?How long has it been since you last smoked???> 10 years ?Additional Findings: Tobacco User??Moderate cigarette smoker (10-19 cigs/day) ?Drugs/Alcohol:?Do you smoke marijuana?: Denies. ?Do you drink alcohol?: No. ?Lives in [place] with daughter & grand-daughter. * Medications:??TakingAlbutero l Sulfate HFA 108 (90 Base) MCG/ACT Aerosol Solution 1 puff as needed Inhalation every 4 hrs PreserVision AREDS 2 - Capsule as directed Orally Colace 100 MG Capsule 1 capsule as needed Orally Once a day Vitamin D3 50 MCG (2000 UT) Tablet 2 tablets Orally Once a day Bisoprolol Fumarate 5 MG Tablet 1 tablet Orally Once a day Trelegy Ellipta 200-62.5-25 MCG/ACT Aerosol Powder Breath Activated 1 puff Inhalation Once a day Lasix 20 MG Tablet 1 tablet Orally Once a day Entresto 49-51 MG Tablet 1 tablet Orally Twice a day Eliquis 5 MG Tablet 1 tablet Orally Twice a day Albuterol Sulfate HFA 108 (90 Base) MCG/ACT Aerosol Solution 1 puff as needed Inhalation every 4 hrs Levothyroxine Sodium 100 MCG Tablet TAKE 1 TABLET BY MOUTH EVERY DAY IN THE MORNING ON EMPTY STOMACH Taking Albuterol Sulfate HFA 108 (90 Base) MCG/ACT Aerosol Solution 1 puff as needed Inhalation every 4 hrs Taking PreserVision AREDS 2 - Capsule as directed Orally Taking Colace 100 MG Capsule 1 capsule as needed Orally Once a day Taking Vitamin D3 50 MCG (2000 UT) Tablet 2 tablets Orally Once a day Taking Bisoprolol Fumarate 5 MG Tablet 1 tablet Orally Once a day Taking Trelegy Ellipta 200-62.5-25 MCG/ACT Aerosol Powder Breath Activated 1 puff Inhalation Once a day Taking Lasix 20 MG Tablet 1 tablet Orally Once a day Taking Entresto 49-51 MG Tablet 1 tablet Orally Twice a day Taking Eliquis 5 MG Tablet 1 tablet Orally Twice a day Taking Albuterol Sulfate HFA 108 (90 Base) MCG/ACT Aerosol Solution 1 puff as needed Inhalation every 4 hrs Taking Levothyroxine Sodium 100 MCG Tablet TAKE 1 TABLET BY MOUTH EVERY DAY IN THE MORNING ON EMPTY STOMACH Not-TakingSynthroid 88 MCG Tablet 1 tablet in the morning on an empty stomach Orally Once a day Medication List reviewed and reconciled with the patientNot-Taking Synthroid 88 MCG Tablet 1 tablet in the morning on an empty stomach Orally Once a day Medication List reviewed and reconciled with the patient * Allergies:??Lisinopril: coug h - AllergyAmoxicillin: Rash - AllergyValium: Hallucinations - Allergy Objective: * Vitals:??BP: Not Taken - Tel ehealth, Ht: 61 in, Ht-cm: 154.94 cm. * Physical Examination:?GEN: NAD, speaking in full complete sentences, thoughts clear and appropriate ?RESP: nonlabored breathing, no audible SOB/Wheezing ?NEURO: AO x 3 ?PSYCH: judgment/insight intact, NL mood/affect. Assessment: * Assessment: 1.??Hypothyroidism (acquired ) - E03.9 (Primary)??2.??Chronic obstructive asthma (with obstructive pulmonary disease) - J44.9?? Plan: * Treatment: 2.??Chronic obstructive asth ma (with obstructive pulmonary disease)?? Notes: Condition is stable and well controlled on current treatment. No changes made, medication(s) refilled as indicated? 3.??Others?? Notes: Total time spent with patient 20 minutes which includes face to face visit, education and coordination of care.? * Procedure Codes:?? * Preventive Medicine:?Last CPE: Due 2022 ?DEXA: Yes, was treated with Fosamax ?Colonoscopy: Yes, over 10 yrs ago ?Endoscopy: Yes, years ago ?Covid Vac: Yes & 4 boosters ?Flu Vac: Yes, 03/2023 ?PV: Yes ?Shingles Vac: Yes, both Zostavax & Shingrix. * Follow Up:??prn (Reason: graciela murphy not be staying as member) * Billing Information: * Visit Code:?? 87432 Office Visit, Est Pt., Level 3. * Procedure Codes:?? * Sign off status: Completed true * Provider:??Bri Mac DNP Date:??0 11/01/2023 History and Physical Notes * HPI (History of Present Illness) Category Sub-Category Detail Notes Category Not es Patient Care Team Crystalizer Tender: Dr. Crowley in [facility] Wader Boot Top Assembler: Dr. Steen in [facility] Physical Examination Category Sub-Category Detail Notes Section Note s GEN: NAD, speaking in full complete sentences, thoughts clear and appropriate RESP: nonlabored breathing, no audible SOB/Wheezing NEURO: AO x 3 PSYCH: judgment/insight intact, NL mood/affect
--- OUTSIDE RECORDS SUMMARY | 2024-06-25 09:33 | XMS_ITS ---
[facility] Organization [facility] Address [address] [facility] [place] [id number] Care Team Providers Care Featherer Name Role Phone BRI MAC Primary Care Provider REASON FOR VISIT cpe Encounters Encounter Location Date Provider Diagnosis [facility] [address] [facility] [place] [id number] 11/26/2023 BRI MAC PLAN OF TREATMENT No Information Progress Notes * BLAKE SIMSDOB:[birth year] (84 yo F)Acc No.[id number]:11/26/2023 Progress Note Patient:??BLAKE SIMS Provider:??Bri Mac DNP :1940?Age:83 Y?Sex:Fe male Date:11/26/2023 Phone: Address:[address] [id number] Subjective: * Chief Complaints: * ?1. Cpe. * Medical History:?? Objective: Assessment: Plan: * Treatment: Care Plan: * Problems:?? * Billing Information: * Visit Code:?? * Procedure Codes:?? * Sign off status: Pending * Provider:??Bri Mac DNP Date:??0 11/26/2023
--- OUTSIDE RECORDS SUMMARY | 2024-06-25 09:34 | XMS_ITS ---
Author Organization [facility] Address [address] [place], [place] [phone] Care Team Providers Care Mechanical Shovel Operator Name Role Phone BRI MCHUGH Primary Care Provider REASON FOR VISIT Labs Encounters Encounter Location Date Provider Diagnosis [address] [id number] 10/15/2023 BRI MCHUGH PLAN OF TREATMENT No Information Progress Notes * BETHANYBLAKEDOB:[birth year] (83 yo F)Acc No.[id number]:10/15/2023 Patient:??BETHANYBLAKE :1940?Age:83 Y?Sex:Fe male Phone: Address:[address] S[address]OCK PLAN ADMINISTRATOR [place] [address] * true * Date:??
--- OUTSIDE RECORDS SUMMARY | 2024-06-25 09:34 | XMS_ITS | Patient Health Record ---
Author Organization [facility] Address [address] [place] [address] [place] [phone] Care Team Providers Care [employer] Caf[employer]ia Name Role Phone BRI MCHUGH Primary Care Provider [phone] Unavailable [phone] ALLERGIES Allergen (clinical drug ingredient) Drug/Non Drug Allergy documented on EMR Reaction Allergy Type Onset Date Status lisinopril Lisinopril cough Drug Allergy Activ e diazepam Valium Hallucinations Drug Allergy Ac tive amoxicillin Amoxicillin Rash Drug Allergy Act britt RESULTS Component Value Reference Range Notes CBC (INCLUDES DIFF/PLT) (759 9) Reviewed date:10/10/2023 10:48:53 AM Interpretation: Performing Lab:NL2, [employer] [facility] [id number] Amena Sheridan Notes/Report: FASTING: NO FASTING:NO NON-FASTING; NON-FASTING; NON-FASTING WHITE BLOOD CELL COUNT 5.8 3.8-10.8 Thousand/ uL RED BLOOD CELL COUNT 4.45 3.80-5.10 Million/uL HEMOGLOBIN 13.8 11.7-15.5 g/dL HEMATOCRIT 42.7 35.0-45.0 % MCV 96.0 80.0-100.0 fL MCH 31.0 27.0-33.0 pg MCHC 32.3 32.0-36.0 g/dL RDW 12.7 11.0-15.0 % PLATELET COUNT 164 140-400 Thousand/uL MPV 10.0 7.5-12.5 fL ABSOLUTE NEUTROPHILS 4089 9220-9612 cells/uL ABSOLUTE LYMPHOCYTES 9823 062-7114 cells/uL ABSOLUTE MONOCYTES 516 200-950 cells/uL ABSOLUTE EOSINOPHILS 17 15-500 cells/uL ABSOLUTE BASOPHILS 29 0-200 cells/uL NEUTROPHILS 70.5 LYMPHOCYTES 19.8 MONOCYTES 8.9 EOSINOPHILS 0.3 BASOPHILS 0.5 COMPREHENSIVE METABOLIC PANE (89782) Reviewed date:10/10/2023 10:48:45 AM Interpretation: Performing Lab:NL2, [employer] [address] Amena Josue Notes/Report: NON-FASTING; NON-FASTING; NON-FASTING FASTING:NO FASTING: NO GLUCOSE 101 65-139 mg/dL Non-fasting reference interval UREA NITROGEN (BUN) 27 7-25 mg/dL CREATININE 0.93 0.60-0.95 mg/dL EGFR 60 > OR = 60 mL/min/1.73m2 BUN/CREATININE RATIO 29 6-22 (calc) SODIUM 140 135-146 mmol/L POTASSIUM 4.2 3.5-5.3 mmol/L CHLORIDE 104 98-110 mmol/L CARBON DIOXIDE 27 20-32 mmol/L CALCIUM 9.4 8.6-10.4 mg/dL PROTEIN, TOTAL 6.6 6.1-8.1 g/dL ALBUMIN 4.3 3.6-5.1 g/dL GLOBULIN 2.3 1.9-3.7 g/dL (calc) ALBUMIN/GLOBULIN RATIO 1.9 1.0-2.5 (calc) BILIRUBIN, TOTAL 0.4 0.2-1.2 mg/dL ALKALINE PHOSPHATASE 64 37-153 U/L AST 18 10-35 U/L ALT 18 6-29 U/L MAGNESIUM (622) Reviewed date:10/10/2023 09:46:14 AM Interpretation: Performing Lab:LEROY, [employer] [address] Amena Sheridan Notes/Report: NON-FASTING; NON-FASTING; NON-FASTING FASTING:NO FASTING: NO MAGNESIUM 2.1 1.5-2.5 mg/dL REASON FOR REFERRAL No Information MEDICATIONS Medication SIG (Take, Route, Frequency, Duration) Notes Start Date End Date Status Albuterol Sulfate HFA 108 (90 Base) MCG/ACT [...] 4 hrs for 90 days 12/26/2022 Active Lasix 20 MG 1 tablet Orally Once a day Active Trelegy Ellipta 200-62.5-25 MCG/ACT 1 puff Inhalation Once a day Active Eliquis 5 MG 1 tablet Orally Twic e a day Active Entresto 49-51 MG 1 tablet Orally Twic e a day Active Colace 100 MG 1 capsule as needed Orally Once a day Active PreserVision AREDS 2 - as directed Orally Active Bisoprolol Fumarate 5 MG 1 tablet Orally Once a day Active Vitamin D3 50 MCG (1999) 2 tablets Orally Once a day Active SOCIAL HISTORY Tobacco Use: [...] smoker (10-19 cigs/day) Section Notes: Lives in [place], [place] with daughter & grand-daughter [place] with daughter & grand-daughter [place] with daughter & grand-daughter [place] with daughter & grand-daughter [place] with daughter & grand-daughter [place] with daughter & grand-daughter [place] with daughter & grand-daughter [place] with daughter & grand-daughter [place] with daughter & grand-daughter PROBLEMS Problem Type ICD Code Onset Dates Problem Status W/U Status Risk SNOMED Code Notes Problem Mixed hyperlipidemia (E78.2) Active confirmed Mixed hyperlipidemia (090003136) Problem Constipation, unspecified (K59.00) Active confirmed Constipation (71395498) Problem Chronic obstructive asthma (with obstructive pulmonary disease) (J44.9) Active confirmed Chronic obstructive pulmonary disease (00441893) Problem Hypothyroidism (acquired) (E03.9) Active confirmed Hypothyroidism (57761788) VITAL SIGNS Heart Rate 81 /min 10/09/2023 Postural Readin gs - 158/78 Lying, 156/82 Sitting, 142/80 Standing Temperature 97.6 degrees Fahrenheit 10/09/2023 Post ural Readings - 158/78 Lying, 156/82 Sitting, 142/80 Standing Height-cm 154.94 cm 11/01/2023 Oximetry 96 % 10/09/2023 Postural Readin gs - 158/78 Lying, 156/82 Sitting, 142/80 Standing Blood pressure diastolic 74 mm Hg 10/09/2023 Pos tural Readings - 158/78 Lying, 156/82 Sitting, 142/80 Standing Weight-kg 85.37 kg 10/09/2023 Postural Readin gs - 158/78 Lying, 156/82 Sitting, 142/80 Standing Height 61 in 11/01/2023 Blood pressure systolic 132 mm Hg 10/09/2023 Post ural Readings - 158/78 Lying, 156/82 Sitting, 142/80 Standing Weight 188.2 lbs 10/09/2023 Postural Readin gs - 158/78 Lying, 156/82 Sitting, 142/80 Standing BMI 35.56 kg/m2 10/09/2023 Postural Readin gs - 158/78 Lying, 156/82 Sitting, 142/80 Standing Encounters Encounter Location Date Provider Diagnosis [address] [id number] 11/26/[address] [id number] 07/04/2023 BRI MCHUGH Mixed hyperlipidemia E78.2 and Chronic obstructive asthma (with obstructive pulmonary disease) J44.[address] [id number] 10/09/2023 Serenity Mcelroy Diarrhea of presumed infectious origin R19.[address] [id number] 11/01/2023 BRI MCHUGH Hypothyroidism (acquired) E03.9 and Chronic obstructive asthma (with obstructive pulmonary disease) J44.[address] [id number] 10/11/[address] [id number] 10/15/2023 BRI MCHUGH ASSESSMENTS Encounter Date Diagnosis Assessment Notes Treatment Notes Treatment Clinical Notes Section Notes 07/04/2023 Mixed hyperlipidemia (ICD-10 - E78.2) Condition is stable and well controlled on current treatment. No changes made, medication(s) refilled as indicated 07/04/2023 Chronic obstructive asthma (with obstructive pulmonary disease) (ICD-10 - J44.9) Condition is stable and well controlled on current treatment. No changes made, medication(s) refilled as indicated 10/09/2023 Diarrhea of presumed infectious origin (ICD-10 - R19.7) Rest- increase water intake Will obtain labs to r/o elextrolyte abnormality given symptoms Monitor BP twice daily at home Orthostatics negative in office Pre/Probiotic- fiber to help bulk stools Call office in 48-72 hours if symptoms don't continue to improve 11/01/2023 Chronic obstructive asthma (with obstructive pulmonary disease) (ICD-10 - J44.9) Condition is stable and well controlled on current treatment. No changes made, medication(s) refilled as indicated 11/01/2023 Hypothyroidism (acquired) (ICD-10 - E03.9) Condition is stable and well controlled on current treatment. No changes made, medication(s) refilled as indicated 07/04/2023 Other Total time spen t with patient 20 minutes which includes face to face visit, education and coordination of care. 10/09/2023 Other Total time spen t with patient 20 minutes which includes face to face visit, education and coordination of care. 11/01/2023 Other Total time spen t with patient 20 minutes which includes face to face visit, education and coordination of care. PLAN OF TREATMENT No Information Insurance Providers Payer Name Payer Address Payer Phone Subscriber Number Group Number Insured Name Patient Relationship to Insured Coverage Start Date Coverage End Date [facility] Medicare Advantage [address] [address] [place], [place] [id number] BETHANYBLAKE LUGO Self - patient is the insured MEDICAL (GENERAL) HISTORY Medical History History ICD Code Allergy/Hay fever Anxiety Arthritis - Osteoarthritis Asthma Prolapsed Bladder Lt. Breast Lump - Benign Cataracts Chicken pox as a child Depression COPD Rt. Wrist Fx Gastroesophageal Reflux Disease Osteoporosis (on Fosamax) Moles Hypothyroidism Surgical History Surgery Date(Month/Year) Prolapsed Bladder 1981 Angiogram (Heart) 2022 Angiogram(Vascular) 2022 Lumbar Surgery (Herniated Discs) 1966 Biopsy - Lt. Breast Lump 1962 Cataract Surgery 2001 Colonoscopy Echocardiogram Pacemaker, Redone 2011 Lt. Hip Replacement 2020 Pulmonary Function Test Due 10/23/22 Sigmoidoscopy Stress Test 2021 Tubal Ligation 1969 Cholecystectomy 12/2022
[2024-06-25 13:14] LABS: Anion Gap 14 (12-20); Blood Urea Nitrogen 23 mg/dL (9-16); Calcium 9.4 mg/dL (8.4-10.2); Carbon Dioxide 26 mmol/L (22-29); Chloride 108 mmol/L (96-108); Estimated Glomerular Filt Rate > 60; Glucose Random 98 mg/dL (60-115); Potassium 4.5 mmol/L (3.3-5.1); Sodium 143 mmol/L (135-145)
[2024-06-25 13:41] LABS: TSH reflex Free T4 3.37 uIU/mL (0.32-4.0)
== END 2024-06-25 09:10 | disposition home or self-care (01) ==
LOC: HO.WFDLDS 09:09
PROVIDERS: Internal Medicine Cardiovascular Disease; Visit Provider Nurse Practitioner Family
DX: E03.9 Hypothyroidism, unspecified (principal); I42.0 Dilated cardiomyopathy
CPT/HCPCS: 36415; 80048; 84443

== ENCOUNTER 2024-07-24 14:36 | Outpatient (AMB) | payer MEDICARE, SELFPAY ==
--- NOTE | 2024-07-24 14:50 | MHC.PC.OV ---
Vital Signs 07/24/24 14:55 Height 5 ft 1 in Weight 192 lb 6 oz BMI 36.3 BP 130/70 Blood Pressure Location Rt brachial Position Sitting Respiration 14 Pulse 64 Pulse Source Pulse Oximeter Temp 97.7 F Temp Source Oral Pulse Oximetry (%) 96 Oxygen Delivery Method Room Air Intake Visit Reasons: Growth on right side of face / Kain pt. Intake Note: pt in office for bilateral lumps on her cheeks pt states she has had them for a while. causes discomfort no drainage or developing white head Cupola Worker Required: No Allergies amoxicillin Allergy (Mild, Verified 07/24/24 14:53) Rash diazepam [From Valium] Adverse Reaction (Mild, Verified 07/24/24 14:53) AMS lisinopril Adverse Reaction (Mild, Verified 07/24/24 14:53) Cough Medication List - Last Reconciled 07/24/24 by Zac León MD albuterol sulfate 90 mcg/actuation inhalation apixaban (Eliquis) 5 mg PO BID bisoprolol fumarate 10 mg PO DAILY mqcwgstzmwy-tmsnzaacj-ytobwjbp 200-62.5-25 mcg (Trelegy Ellipta) 1 ea inhalation DAILY furosemide 20 mg PO DAILY levothyroxine 100 mcg PO DAILY sacubitril-valsartan 97-103 mg (Entresto) 1 tab PO BID HPI Growth on right side of face / Kain pt. HPI Details 84 y/o female presents with complaints of a growth on the R side of her face. Notes it is not painful. Has been using hot patches for relief and notes it has been improving by getting smaller. [facility] Medical History (Updated 07/24/24 @ 15:07 by Laureano Dickey) FH: cholecystectomy Cataract Pacemaker Surgical History (Updated 12/05/23 @ 13:29 by Emily Neumann MA) H/O discectomy History of hip replacement History of bladder surgery Family History (Updated 12/05/23 @ 13:17 by Emily Neumann MA) Mother Alcohol abuse Cancer Father Alcohol abuse Daughter FH: mental illness Asthma Thyroid disorder Questionnaire PHQ-9 Over the last 2 weeks, how often have you been bothered by any of the following problems? 1. Little interest or pleasure in doing things: not at all 2. Feeling down, depressed, or hopeless: not at all 3. Trouble falling or staying asleep, or sleeping too much: not at all 4. Feeling tired or having little energy: not at all 5. Poor appetite or overeating: not at all 6. Feeling bad about yourself - or that you are a failure or have let yourself or your family down: not at all 7. Trouble concentrating on things, such as reading the newspaper or watching television: not at all 8. Moving or speaking so slowly that other people could have noticed. Or the opposite - being so fidgety or restless that you have been moving around a lot more than usual: not at all 9. Thoughts that you would be better off or of hurting yourself in some way: not at all Total score: 0 Source: Developed by Drs. Artemio Vo, Lupe Simons, Nils Toro and colleagues, with an educational paloma from [employer]. Thrive Questionnaire I am a: Patient What is your living situation today?: I have a steady place to live Within the past 12 months, did the food you bought not last and you didn't have the money to get more?: Never true Within the past 12 months, did you worry whether your food would run out before you got money to buy more?: Never true Do you have trouble paying for medicines?: No Do you have trouble getting transportation to medical appointments?: No Do you have trouble paying your heating and electricity bill?: No Do you have trouble taking care of your child, family member or friend?: No Do you have trouble with day-to-day activities such as bathing, preparing meals, shopping, managing finances, etc.?: No Are you currently unemployed and looking for a job?: No Are you interested in more education?: No Please select the resources that you would like help with: None Currently or been in a relationship where the following occur: No concerns reported THRIVE Score: 0 AUDIT C Alcohol Use Questionnaire (AUDIT-C) 1. How often do you have a drink containing alcohol?: 2-4 times a month 2. How many drinks containing alcohol do you have on a typical day when you are drinking?: 1 or 2 3. How often do you have six or more drinks on one occasion?: Never Total Score: 2 FLYNN-7 AMB Questionnaire FLYNN-7 Feeling nervous, anxious, or on edge: 0 = Not at all Not being able to stop or control worryin = Not at all Worrying too much about different things: 0 = Not at all Trouble relaxin = Not at all Being so restless that it is hard to sit still: 0 = Not at all Becoming easily annoyed or irritable: 0 = Not at all Feeling afraid as if something awful might happen: 0 = Not at all Total FLYNN-7 score (0-4 normal; 5-9 mild; 10-14 moderate; 15-21 severe): 0 Source: Developed by Drs. Artemio Vo, Lupe Simons, Nils Toro and colleagues, with an educational paloma from [employer]. Review of Systems Const Denies chills, Denies fatigue, Denies fever(s), Denies headache(s) and Denies weakness ENT Denies dizziness and Denies headache(s) Card Denies dyspnea Resp Denies cough, Denies dyspnea, Denies wheezing and Denies other (shortness of breath) Musc Denies numbness and Denies tingling Neuro Denies dizziness, Denies headache(s), Denies numbness, Denies tingling and Denies weakness Psych Denies anxiety and Denies depression Endo Denies fatigue Aller/Immun Denies wheezing Physical exam (Primary Care) Vital Signs: Last Vital Signs Temp 97.7 F 07/24/24 14:55 Pulse 64 07/24/24 14:55 Resp 14 07/24/24 14:55 BP 130/70 07/24/24 14:55 Pulse Ox 96 07/24/24 14:55 Oxygen Delivery Method Room Air 07/24/24 14:55 BMI result Body Mass Index 36.3 PHQ-9: PHQ-9 Score PHQ-9: Total score 0 07/24/24 14:50 Currently or been in a relationship where the following occur: No concerns reported Const General: well developed; No acute distress Nutritional Appearance: well nourished Orientation/consciousness: patient oriented x3 HENMT Head: Yes normocephalic and Yes atraumatic Eyes General: appearance normal, both eyes and all related structures Pupils: Equal, round and reactive pupils present EOM: EOMs intact bilaterally Resp Effort & Inspection: normal respiratory effort Skin Other: 1 cm abscess on R cheek with mild erythema surrounding it and mild warmth Neuro General: patient oriented x3 and gait normal Cranial nerves: Yes Equal, round and reactive pupils present Psych Affect: normal affect Coding Level of Care Code Est Pt Level 3 (19247) Diagnoses Skin abscess L02.91 Assessment & Plan Assessment & Plan (1) Skin abscess: Code(s): L02.91 - Cutaneous abscess, unspecified Category: Medical Plan: 1?cm?abscess?on?right?cheek?with?mild?surrounding?cellulitis Start?Bactrim?ds?b.i.d. Warm?compresses Encouraged?drainage?if?it?begins?to?drain?spontaneously Watch?for?increasing?redness,?swelling,?pain?or?fever/chills. Call?or?return?to?office?if?any?of?the?above?or?any?worsening?or?not?improving?within?several?days. Medications: New sulfamethoxazole-trimethoprim 800-160 mg (Bactrim DS) 1 tab PO Q12H 10 days 20 tabs 0RF Zac León MD Changed From bisoprolol fumarate 5 mg PO DAILY 90 tabs 0RF To bisoprolol fumarate 10 mg PO DAILY Jessenia Joyner, MEDICAL RECORDS CODER-BC
[2024-07-24 14:55] VITALS: BP 130/70; PULSE 64; RESP 14; TEMP 36.5; O2SAT 96; BMI 36.3
--- OUTSIDE RECORDS SUMMARY | 2024-07-24 15:45 | XMS_ITS ---
Author Organization [facility] Address [address], [place] [id number] Care Team Providers Care Supreme Court Judge Name Role Phone BRI MCHUGH Primary Care Provider [phone] REASON FOR VISIT Labs Encounters Encounter Location Date Provider Diagnosis [address] [id number] 10/15/2023 BRI MCHUGH PLAN OF TREATMENT No Information Progress Notes * BETHANYBLAKEDOB:[birth year] (83 yo F)Acc No.[id number]:10/15/2023 Patient:??BETHANYBLAKE :1940?Age:83 Y?Sex:Fe male Phone: Address:[address] [place] [address] * true * Date:??
--- OUTSIDE RECORDS SUMMARY | 2024-07-24 15:45 | XMS_ITS ---
Author Organization [facility] Address [address] [facility] [place] [id number] Care Team Providers Care Integrated Circuit Design Engineer Name Role Phone BRI MAC Primary Care Provider REASON FOR VISIT cpe Encounters Encounter Location Date Provider Diagnosis [facility] [address] [facility] [place] [phone] 11/26/2023 BRI MAC PLAN OF TREATMENT No Information Progress Notes * BLAKE SIMSDOB:[birth year] (84 yo F)Acc No.[id number]:11/26/2023 Progress Note Patient:??BLAKE SIMS Provider:??Bri Mac DNP :1940?Age:83 Y?Sex:Fe male Date:11/26/2023 Phone: Address:[address] [id number] Subjective: * Chief Complaints: * ?1. Cpe. * Medical History:?? Objective: Assessment: Plan: * Treatment: Care Plan: * Problems:?? * Billing Information: * Visit Code:?? * Procedure Codes:?? * Sign off status: Pending * Provider:??Bri Mac DNP Date:??0 11/26/2023
--- OUTSIDE RECORDS SUMMARY | 2024-07-24 15:45 | XMS_ITS ---
Author Organization [facility] Address [address] [place] [address] [place] [id number] Care Team Providers Care Hospital Coordinator Name Role Phone BRI MAC Primary Care [...] smoker (10-19 cigs/day) Section Notes: Lives in [place], [place] with daughter & grand-daughter VITAL SIGNS Height 61 in 11/01/2023 Height-cm 154.94 cm 11/01/2023 Encounters Encounter Location Date Provider Diagnosis [address] [phone] 11/01/2023 BRI MAC Hypothyroidism (acquired) E03.9 and [...] * KIARRA SIMSALFREDODOB:[birth year] (83 yo F)Acc No.[id number]:11/01/2023 Progress Note Patient:??LA NENA SIMS Provider:??Bri Mac DNP :1940?Age:83 Y?Sex:Fe male Date:11/01/2023 Phone: Address:[address] [place] [facility] [place] Subjective: * Chief Complaints: * ?Lab Review * HPI: ?Patient Care Team:? The patient consents to HIPAA compliant telehealth visit using video platform within EHR system. The patient states they are in a private location in their home and the provider is located in the office in a private room. ?Loom Fixer Supervisor:??Dr. Crowley in [place].?Energy Scheduler:??Dr. Steen in [place].?Visit info:? La Nena presents today, via Telehealth, for f/u lab review. ?She will be unable to stay & is currently looking for new PCP. She is scheduled for CPE next month, will need to cancel. * ROS:?all systems reviewed and are non-contributory unless specified in the HPI. * Medical History:?? * Pit Shovel Operator History:?Menstrual history: ?Age of Menarche:??9 ?Age of Menopause:??52 ?Last pap smear date??Over 10 years ago - last done, normal per pt..?Last mammogram date??Over 10 years ago - Normal per pt..?? * OB History:? History:?Total pregnancies:??6 ?Full-term pregnancies:??6 * Surgical History:??Prolapsed Bladder 1982Angiogram (Heart) ngiogram(Vascular) 2022Lumbar Surgery (Herniated Discs) 1966Biopsy - Lt. Breast Lump 1963Cataract Surgery 2002Colonoscopy Echocardiogram 91041QtnbibdroKatherin jean-baptiste 2011Lt. Hip Replacement ulmonary Function Test [...] ?Do you drink alcohol?: No. ?Lives in [place], [place] with daughter & grand-daughter. * Medications:??TakingAlbutero [...] member) * Billing Information: * Visit Code:?? 84900 Office Visit, Est Pt., Level 3. * Procedure Codes:?? * Sign off status: Completed true * Provider:??Bri Mac DNP Date:??0 11/01/2023 History and Physical Notes * HPI (History of Present Illness) Category Sub-Category Detail Notes Category Not es Patient Care Team Loom Fixer Supervisor: Dr. Crowley in [facility] Energy Scheduler: Dr. Steen in [facility] Physical Examination Category Sub-Category Detail Notes Section Note s GEN: NAD, speaking in full complete sentences, thoughts clear and appropriate RESP: nonlabored breathing, no audible SOB/Wheezing NEURO: AO x 3 PSYCH: judgment/insight intact, NL mood/affect
== END 2024-07-24 15:14 | disposition home or self-care (01) ==
PROVIDERS: PCP Nurse Practitioner Family; Visit Provider Family Medicine
DX: L02.91 Cutaneous abscess, unspecified (principal)

== ENCOUNTER → 2024-07-24 14:36 | Outpatient (BNVA) | payer MEDICARE, SELFPAY | PROVIDERS: PCP Nurse Practitioner Family; Visit Provider Family Medicine | DX: L02.91 Cutaneous abscess, unspecified (principal) | CPT/HCPCS: 99212 ==

== ENCOUNTER 2024-10-22 09:28 | Outpatient (AMB) | payer MEDICARE, SELFPAY ==
--- NOTE | 2024-10-22 09:41 | MHC.PC.OV ---
Vital Signs 10/22/24 09:49 Height 5 ft 1 in Weight 191 lb 8 oz BMI 36.2 BP 132/74 Blood Pressure Location Rt brachial Position Sitting Respiration 13 Pulse 72 Pulse Source Pulse Oximeter Temp 97.4 F Temp Source Oral Pulse Oximetry (%) 98 Oxygen Delivery Method Room Air Intake Visit Reasons: hip pain Intake Note: Patient c/o right hip px x 2 weeks and also patient c/o raising heart rate. Building Rental Superintendent Required: No Allergies amoxicillin Allergy (Mild, Verified 10/22/24 09:53) Rash diazepam [From Valium] Adverse Reaction (Mild, Verified 10/22/24 09:53) AMS lisinopril Adverse Reaction (Mild, Verified 10/22/24 09:53) Cough Medication List - Last Reconciled 10/22/24 by SHEILA Peter- albuterol sulfate 90 mcg/actuation inhalation apixaban (Eliquis) 5 mg PO BID bisoprolol fumarate 10 mg PO DAILY sdqdowtljoj-ebegyisxp-iqdmoetp 200-62.5-25 mcg (Trelegy Ellipta) 1 ea inhalation DAILY furosemide 20 mg PO DAILY levothyroxine 100 mcg PO DAILY sacubitril-valsartan 97-103 mg (Entresto) 1 tab PO BID Tobacco use date assessed: 10/22/24 Fall risk assessment: No Falls in past year Last assessed Fall Risk: 10/22/24 Dental Screening Dental Screen Date: 10/22/24 Did you have a dental visit in the last 12 months?: Yes Did you have a dental problem in the last 6 months where you did not have access to dental care?: No Was dental information given to patient?: Patient has dentist HPI HPI Comments History of Present Illness Details 84 y/o F with HTN, HLD, Hypothyroid, COPD, SSS s/p pacemaker, PVD, obesity, Vit D def, age related cataracts, CKD, CHF with secondary hyperaldosteronism, Afib with secondary hypercoaguable state, urinary incont, prolapsed bladder s/p sling, MDD, FLYNN, GERD, Osteoporosis, seasonal allergies s/p proplapsed bladder repair 1981, angiogram 2022, herniated lumbar disc repair 1965, Lt breast bx negative 1962, cataract surgery 2001, L hip replacement 2020, tubal ligation 1968, cholecystectomy 2022 Here today w/ c/o hip pain However when i walked in to the room she was accompanied by her grandson, Vimal, which was unusual. She had pursed lip breathing. I asked if she was feeling SOB. She said yes. Taking inhalers as directed. Has not used albuterol prior to visit today. ARIK was taking VS and on 02 sats HR 80-155bpm mine has been saying that at home, too Hx of Afib. States she has been using smart watch EKG and has not confirmed Afib w/ the finding on home 02 sat. monitor. At this time, she is feeling racing in her heart and having some substernal chest pain. Wt has increased at home, having some swelling in lower ext which is new. TAking all meds as directed Next cards appt not december. General: Well developed, well nourished, in no acute distress. Appears younger than stated age. Head: Normocephalic, atraumatic. Lungs: Clear but dim throughout, pursed lip breathing Heart: Irregularly irregular, tachycardic, No murmurs, click, rubs or gallops are noted. Extremities: No clubbing, cyanosis nor edema is noted. Trace edema BLE, skin intact, legs hairless, decreased PP with varicosity Neurologic: Gait and station normal. Cranial Nerves 2-12 intact. Motor strength grossly symmetrical and intact. No sensory loss. Balance normal. Skin: No rashes, ulcers noted. Turgor is good. Skin color is good. Hair and nails are without abnormalities. Noted two small cystic lesions, 1 under the left orbit and one on the right cheek. Psych: Normal eye contact, affect and mood appropriate, and normal interactions. Patient is alert and appropriate to context. EKG: Afib with RVR At this time, pt was advised of need to go to ED for eval and tx. Grandson willing and able to transport directly to ED. 1012 report called to Rochelle at [facility]. Advised pt to fu with me after her acute care work up. Total time spent caring for the patient today was 50 minutes. This includes time spent before the visit reviewing the chart, time spent during the visit, and time spent after the visit on documentation, reviewing laboratory results, diagnostic imaging, medications, performing a medically necessary evaluation, counseling on diagnoses, care coordination, ordering appropriate tests, ordering appropriate medications, review of tests performed by other providers, reporting test results with the patient, communication with other healthcare providers. [facility] Medical History FH: cholecystectomy Cataract Pacemaker Surgical History H/O discectomy History of hip replacement History of bladder surgery Family History Mother Alcohol abuse Cancer Father Alcohol abuse Daughter FH: mental illness Asthma Thyroid disorder Social History (Updated 10/22/24 @ 09:44 by Ronal Grant MA) Household Members: Family Both parents involved: No Caregiver staying overnight: No Housing: House Are you a primary director of managed care to a significant other at home: No Do you presently have visiting nurse or other home services: No 75 years or older and lives alone: No Alcohol intake: never Patient Tobacco Use Status: Never used Tobacco e-Cigarette/Vaping Use: Never Used Second Hand Smoke Exposure: No Use of substances other than those prescribed or required for medical reasons: No Current occupational status: retired Cognitive needs: No Hearing needs: No Vision needs: No Questionnaire Thrive Questionnaire Date Thrive assessed: 07/24/24 I am a: Patient What is your living situation today?: I have a steady place to live Within the past 12 months, did the food you bought not last and you didn't have the money to get more?: Never true Within the past 12 months, did you worry whether your food would run out before you got money to buy more?: Never true Do you have trouble paying for medicines?: No Do you have trouble getting transportation to medical appointments?: No Do you have trouble paying your heating and electricity bill?: No Do you have trouble taking care of your child, family member or friend?: No Do you have trouble with day-to-day activities such as bathing, preparing meals, shopping, managing finances, etc.?: No Are you currently unemployed and looking for a job?: No Are you interested in more education?: No Please select the resources that you would like help with: None Currently or been in a relationship where the following occur: No concerns reported THRIVE Score: 0 Physical exam (Primary Care) BMI Assessment/Plan discussion: High BMI High, discussed plan: lifestyle Tobacco/Smoking Status: Tobacco use Status Tobacco use date assessed 10/22/24 10/22/24 09:46 Patient Tobacco Use Status Never used Tobacco 10/22/24 09:46 e-Cigarette/Vaping Use Never Used 10/22/24 09:46 Thrive Assessment: Date of Thrive Assessment Date Thrive assessed 07/24/24 10/22/24 09:41 Currently or been in a relationship where the following occur: No concerns reported Office Procedures EKG 42507-Ymwbmjiknadvsfskb, Complete Coding Level of Care Code Est Pt Level 5 (84636) Complex EM visit Add On G2211 Diagnoses Paroxysmal atrial fibrillation I48.0 Atrial fibrillation type: paroxysmal Primary hypertension I10 Hypertension type: primary hypertension Chronic systolic congestive heart failure I50.22 Heart failure type: systolic Heart failure chronicity: chronic 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 Secondary hypercoagulability disorder D68.69 Class 2 severe obesity due to excess calories with serious comorbidity and body mass index (BMI) of 35.0 to 35.9 in adult E66.01; Z68.35 Obesity type: due to excess calories Obesity classification: adult class 2 (BMI 35 - 39.9) Body mass index: BMI 35.0-35.9 CPT Codes EKG - CPT: 43898-Yzrfgpmhwgzagspfl, Complete ([id number]) Assessment & Plan Assessment & Plan (1) Afib: Comment: with secondary hypercoaguable state on BB and Eliquis managed by Cards Code(s): I48.91 - Unspecified atrial fibrillation Category: Medical Qualifiers: Atrial fibrillation type: paroxysmal Qualified Code(s): I48.0 - Paroxysmal atrial fibrillation (2) HTN (hypertension): Comment: goal <130/80 controlled on current meds Code(s): I10 - Essential (primary) hypertension Category: Medical Qualifiers: Hypertension type: primary hypertension Qualified Code(s): I10 - Essential (primary) hypertension (3) CHF (congestive heart failure): Comment: Fluid status euvolemic, no evidence of overload 06/12/22 Echo with EF 40-45% Echo 11/29/23 results pending Managed on entresto, bisoprolol. Encouraged daily wts, fluids restrictions and low Na+ diet. Managed by Cards Code(s): I50.9 - Heart failure, unspecified Category: Medical Qualifiers: Heart failure type: systolic Heart failure chronicity: chronic Qualified Code(s): I50.22 - Chronic systolic (congestive) heart failure (4) Secondary hyperaldosteronism: Comment: d/t CHF. Pt with activation of RAAS as e/b entresto, stable. Monitor for renal function signs of hypoperfusion. Code(s): E26.1 - Secondary hyperaldosteronism Category: Medical (5) Secondary hypercoagulability disorder: Comment: see Afib Code(s): D68.69 - Other thrombophilia Category: Medical (6) Obesity with serious comorbidity: Comment: with HTN and CHF BMI > 35 Code(s): E66.9 - Obesity, unspecified Category: Medical Qualifiers: Obesity type: due to excess calories Obesity classification: adult class 2 (BMI 35 - 39.9) Body mass index: BMI 35.0-35.9 Qualified Code(s): E66.01 - Morbid (severe) obesity due to excess calories; Z68.35 - Body mass index [BMI] 35.0-35.9, adult Plan .
[2024-10-22 09:49] VITALS: BP 132/74; PULSE 72; RESP 13; TEMP 36.3; O2SAT 98; BMI 36.2
== END 2024-10-22 10:12 | disposition home or self-care (01) ==
LOC: HO.HMCFM 09:28
PROVIDERS: PCP Nurse Practitioner Family; Visit Provider Nurse Practitioner Family
DX: I48.0 Paroxysmal atrial fibrillation (principal); I50.22 Chronic systolic (congestive) heart failure; E66.01 Morbid (severe) obesity due to excess calories; Z68.36 Body mass index [BMI] 36.0-36.9, adult; I10 Essential (primary) hypertension; E26.1 Secondary hyperaldosteronism; D68.69 Other thrombophilia

== ENCOUNTER → 2024-10-22 09:28 | Outpatient (BNVA) | payer MEDICARE, SELFPAY | PROVIDERS: PCP Nurse Practitioner Family; Visit Provider Nurse Practitioner Family | DX: I48.0 Paroxysmal atrial fibrillation (principal); I11.0 Hypertensive heart disease with heart failure; I50.22 Chronic systolic (congestive) heart failure; E26.1 Secondary hyperaldosteronism; D68.69 Other thrombophilia; E66.01 Morbid (severe) obesity due to excess calories; Z68.35 Body mass index [BMI] 35.0-35.9, adult; Z71.3 Dietary counseling and surveillance | CPT/HCPCS: 93005; 99212 ==

== ENCOUNTER 2024-10-31 13:06 | Outpatient (AMB) | payer MEDICARE, SELFPAY ==
--- NOTE | 2024-10-31 12:58 | MHC.PC.OV ---
Vital Signs 10/31/24 15:13 BP 112/78 Blood Pressure Location Rt brachial Position Sitting Intake Visit Reasons: HOS DIS FOLLOW UP Allergies amoxicillin Allergy (Mild, Verified 10/31/24 15:11) Rash diazepam [From Valium] Adverse Reaction (Mild, Verified 10/31/24 15:11) AMS lisinopril Adverse Reaction (Mild, Verified 10/31/24 15:11) Cough Medication List - Last Reconciled 10/31/24 by Jessenia Joyner, [facility]- albuterol sulfate 90 mcg/actuation inhalation apixaban (Eliquis) 5 mg PO BID bisoprolol fumarate 7.5 mg PO DAILY cholecalciferol (vitamin D3) PO DAILY qvgckttnkio-cajqcrzik-rbkpwujo 200-62.5-25 mcg (Trelegy Ellipta) 1 ea inhalation DAILY furosemide 20 mg PO DAILY levothyroxine 100 mcg PO DAILY sacubitril-valsartan 97-103 mg (Entresto) 1 tab PO BID vitamins A,C,A-ktkg-rktrfy 4,296 mcg-226 mg-90 mg (PreserVision AREDS) 1 cap PO BID Tobacco use date assessed: 10/31/24 Fall risk assessment: 1 Fall in past year Last assessed Fall Risk: 10/31/24 Dental Screening Dental Screen Date: 10/22/24 HPI HPI Comments History of Present Illness Details 84 y/o F with HTN, HLD, Hypothyroid, COPD, SSS s/p pacemaker, PVD, obesity, Vit D def, age related cataracts, CKD, CHF with secondary hyperaldosteronism, Afib with secondary hypercoaguable state, urinary incont, prolapsed bladder s/p sling, MDD, FLYNN, GERD, Osteoporosis, seasonal allergies s/p proplapsed bladder repair 1981, angiogram 2022, herniated lumbar disc repair 1965, Lt breast bx negative 1962, cataract surgery 2001, L hip replacement 2020, tubal ligation 1968, cholecystectomy 2022 Here today for a Transitional Care Management Visit Discharge summary reviewed. Admitted for Afib with RVR. Treated with betablockers. R hip pain, CT scan showed moderate OA, recommended home PT and outpatient MRI if pain cont. along w/ ortho consult. Admission Date: 10/22/24 Discharge Date: 10/24/24 Hospital: [facility] Date of interactive contact with Nurse Navigator: as documented in chart Pending diagnostic tests/treatments: none Pending consults: none DME: no new PT/OT/GASTROENTEROLOGY TEACHER: Y i placed referral to [facility] but services have not started; i provided info to her today and asked that she call. Home Health Aide/WASHCOAT WIPER: N Referrals: None Medications reconciled & updated. New med: Bisoprolol 2.5 mg at bedtime Tylenol 1000mg TID Tramadol PRN pain November 06 2024 Conversion Having chest tightness During todays TCM visit, the d/c summary was reviewed, along with the need for or follow-up on pending diagnostic tests and treatments, as necessary interaction with other health patient care provider who will assume or reassume care of the beneficiary?s system-specific problems was done or is being worked on, education was provided to the beneficiary, family, guardian, and/or caregiver, referrals to establish or re-establish and arrange needed community resources we completed, assistance in scheduling required follow-up with community providers and services & finally updated medication list given to patient/caregiver History of Present Illness - The patient is an 84-year-old female presenting for TCM. - She cont w/ Erratic pulse rates with physical activity, fluctuating readings from 155 to 87 bpm. - Experiences chest tightness, no pain, fluctuating blood pressure noticeable. Does feel bad with SBP < 100 which has only been once. - Has sob when tacchycardic; not taking Albuterol to avoid worsening tachycardia. - Saw Cards, plan for cardioversion on November 06. - R Hip osteoarthritis confirmed by CAT scan, awaiting home physical therapy. would like to hold off on any referrals or work up at this time until cardiac stuff is resolved. - Pain managed with Tylenol Extra Strength, minimal use of tramadol. 25mg Denies fever, chills, chest pain, swelling in lower ext. Limited physical exam was conducted Has not weighed self since returning home. Awake alert NAD Speaking in full sentences Engaging, appropriate Skin pink warm and dry Mood and affect appropriate Assessment and Plan 1. Atrial Fibrillation - Cont Betablocker, cardioversion scheduled. - Educated on signs requiring emergency services. - Avoid albuterol. 2. Hypertension - Fluctuating blood pressure on current medications. - Observed for symptomatic changes. - hopefully can go back down on bisoprolol after cardioversion 3. Osteoarthritis of the Hip - Management with Tylenol, tramadol if necessary. - Awaiting home physical therapy engagement. - FU once cardiac stuff is resolved. Telehealth Attestation Documentation of the visit was accurately completed via telephonic interaction. The patient has been explained that this is an interactive (audio/video) telehealth encounter and what that consists of. The patient understands and wishes to proceed. [employer] platform was used. Total time spent caring for the patient today was 30 minutes. This includes time spent before the visit reviewing the chart, time spent during the visit, and time spent after the visit on documentation, reviewing laboratory results, diagnostic imaging, medications, performing a medically necessary evaluation, counseling on diagnoses, care coordination, ordering appropriate tests, ordering appropriate medications, review of tests performed by other providers, reporting test results with the patient, communication with other healthcare providers. [facility] Medical History FH: cholecystectomy Cataract Pacemaker Surgical History H/O discectomy History of hip replacement History of bladder surgery Family History Mother Alcohol abuse Cancer Father Alcohol abuse Daughter FH: mental illness Asthma Thyroid disorder Social History (Updated 10/31/24 @ 13:03 by Yoselyn Flores CMA) Household Members: Family Both parents involved: No Caregiver staying overnight: No Housing: House Are you a primary career placement specialist to a significant other at home: No Do you presently have visiting nurse or other home services: No 75 years or older and lives alone: No Alcohol intake: never Patient Tobacco Use Status: Former Tobacco user Cigarettes Per Day: 2 Years Smoked: 65 e-Cigarette/Vaping Use: Never Used Second Hand Smoke Exposure: No service: No Current occupational status: retired Cognitive needs: No Hearing needs: No Vision needs: No Questionnaire Thrive Questionnaire Date Thrive assessed: 07/24/24 I am a: Patient What is your living situation today?: I have a steady place to live Within the past 12 months, did the food you bought not last and you didn't have the money to get more?: Never true Within the past 12 months, did you worry whether your food would run out before you got money to buy more?: Never true Do you have trouble paying for medicines?: No Do you have trouble getting transportation to medical appointments?: No Do you have trouble paying your heating and electricity bill?: No Do you have trouble taking care of your child, family member or friend?: No Do you have trouble with day-to-day activities such as bathing, preparing meals, shopping, managing finances, etc.?: No Are you currently unemployed and looking for a job?: No Are you interested in more education?: No Please select the resources that you would like help with: None Currently or been in a relationship where the following occur: No concerns reported THRIVE Score: 0 AUDIT C Alcohol Use Questionnaire (AUDIT-C) 1. How often do you have a drink containing alcohol?: Never 3. How often do you have six or more drinks on one occasion?: Never Total Score: 0 Physical exam (Primary Care) Tobacco/Smoking Status: Tobacco use Status Tobacco use date assessed 10/31/24 10/31/24 13:03 Patient Tobacco Use Status Former Tobacco user 10/31/24 13:03 e-Cigarette/Vaping Use Never Used 10/31/24 13:03 Thrive Assessment: Date of Thrive Assessment Date Thrive assessed 07/24/24 10/31/24 13:03 Currently or been in a relationship where the following occur: No concerns reported Telehealth Telehealth Telehealth Platform: [facility] Location of provider rendering services: practice address Location of patient: address on file Patient Identification confirmed using: Name, : Yes Telehealth method: video Patient verbally consented to treatment: Yes Patient verbally consented to billing insurance company: Yes Patient informed of any privacy concerns related to visit: Yes Minutes spent on Phone/Video with Pt.: 16 Coding Level of Care Code TCM High MDM <= 7 Days Complex EM visit Add On G2211 Diagnoses Hospital discharge follow-up Z09 Paroxysmal atrial fibrillation I48.0 Atrial fibrillation type: paroxysmal Chronic systolic congestive heart failure I50.22 Heart failure type: systolic Heart failure chronicity: chronic Primary osteoarthritis of right hip M16.11 Osteoarthritis type: primary Assessment & Plan Assessment & Plan (1) Hospital discharge follow-up: Code(s): Z09 - Encounter for follow-up examination after completed treatment for conditions other than malignant neoplasm (2) Afib: Comment: with secondary hypercoaguable state on BB and Eliquis managed by Cards Code(s): I48.91 - Unspecified atrial fibrillation Category: Medical Qualifiers: Atrial fibrillation type: paroxysmal Qualified Code(s): I48.0 - Paroxysmal atrial fibrillation (3) CHF (congestive heart failure): Comment: Fluid status euvolemic, no evidence of overload 06/12/22 Echo with EF 40-45% Echo 11/29/23 results pending Managed on entresto, bisoprolol. Encouraged daily wts, fluids restrictions and low Na+ diet. Managed by Cards Code(s): I50.9 - Heart failure, unspecified Category: Medical Qualifiers: Heart failure type: systolic Heart failure chronicity: chronic Qualified Code(s): I50.22 - Chronic systolic (congestive) heart failure (4) Osteoarthritis of right hip: Code(s): M16.11 - Unilateral primary osteoarthritis, right hip Category: Medical Qualifiers: Osteoarthritis type: primary Qualified Code(s): M16.11 - Unilateral primary osteoarthritis, right hip Plan . Medications: New tramadol 25 mg PO Q6H PRN 30 tabs 0RF pain
[2024-10-31 15:13] VITALS: BP 112/78
== END 2024-10-31 15:32 | disposition home or self-care (01) ==
LOC: HO.HMCFM 13:06
PROVIDERS: PCP Nurse Practitioner Family; Visit Provider Nurse Practitioner Family
DX: Z09 Encounter for follow-up examination after completed treatment for conditions other than malignant neoplasm (principal); I48.0 Paroxysmal atrial fibrillation; I50.22 Chronic systolic (congestive) heart failure; M16.11 Unilateral primary osteoarthritis, right hip

== ENCOUNTER → 2024-10-31 13:06 | Outpatient (BNVA) | payer MEDICARE, SELFPAY | PROVIDERS: PCP Nurse Practitioner Family; Visit Provider Nurse Practitioner Family | DX: Z09 Encounter for follow-up examination after completed treatment for conditions other than malignant neoplasm (principal); I48.0 Paroxysmal atrial fibrillation; I50.22 Chronic systolic (congestive) heart failure; M16.11 Unilateral primary osteoarthritis, right hip | CPT/HCPCS: 99496 ==

== ENCOUNTER 2024-11-21 11:14 | Outpatient (AMB) | payer MEDICARE, SELFPAY ==
--- NOTE | 2024-11-21 11:20 | A.OFFPC_ITS ---
Vital Signs 11/21/24 11:26 Height 5 ft 1 in Weight 189 lb BMI 35.7 BP 110/78 Blood Pressure Location Rt brachial Position Sitting Respiration 14 Pulse 76 Pulse Source Pulse Oximeter Temp 97.2 F Temp Source Oral Pulse Oximetry (%) 97 Oxygen Delivery Method Room Air Intake Visit Reasons: DC from [facility] on 11/12 Intake Note: Hosptial follow up Automotive Specialty Technician Required: No Allergies amoxicillin Allergy (Mild, Verified 11/21/24 11:26) Rash diazepam (From Valium) Adverse Reaction (Mild, Verified 11/21/24 11:26) AMS lisinopril Adverse Reaction (Mild, Verified 11/21/24 11:26) Cough Medication List - Last Reconciled 11/21/24 by Jessenia Joyner, [employer]- albuterol sulfate 90 mcg/actuation inhalation amiodarone starting 11/06/2024 will be at one a day apixaban (Eliquis) 5 mg PO BID bisoprolol fumarate 7.5 mg PO DAILY cholecalciferol (vitamin D3) PO DAILY fjrbwqzgwrc-wtpdlmgee-hvcpzevb 200-62.5-25 mcg (Trelegy Ellipta) 1 ea inhalation DAILY furosemide 20 mg PO DAILY levothyroxine 100 mcg PO DAILY sacubitril-valsartan 97-103 mg (Entresto) 1 tab PO BID vitamins A,C,F-izan-wisulp 4,296 mcg-226 mg-90 mg (PreserVision AREDS) 1 cap PO BID Tobacco use date assessed: 11/21/24 Fall risk assessment: No Falls in past year Last assessed Fall Risk: 11/21/24 Dental Screening Dental Screen Date: 10/22/24 HPI HPI Comments History of Present Illness Details 84 y/o F with HTN, HLD, Hypothyroid, 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 Afib Cardioversion. Underwent cardioversion that failed after 4 days. Started on amiodorone. Since her TSH has increased 11/12 and 11/17 > 8 Labs sent to me by Cards Taking levothyroxine 100mcg QD at current time Here w/ her dtr, Anita, today Feeling so much better SOB and tachycardia has resolved WT is trending back to normal Minimal swelling in lower ext No chest pain Walking w/ Cane active in PT Hip is doing fine Still needs help w/ some ADLS like bathing Admission Date: 11/11/24 Discharge Date: 11/12/24 Hospital: [facility] Date of interactive contact with Nurse Navigator: as documented in chart Pending diagnostic tests/treatments: none Pending consults: none DME: no new PT/OT/HYDROLOGY TECHNICIAN: Y [employer] active Home Health Aide/POLYMER TESTER: N Referrals: None Medications reconciled & updated. New med: Amio loading, will reduce to 200mg QD next week Exam: xam: General: Well developed, well nourished, in no acute distress. Appears younger than stated age. Head: Normocephalic, atraumatic. Eyes: Pupils are equal, round and reactive to light and accommodation. Conjunctivae are clear. Lungs: Clear to auscultation bilaterally, diminished throughout. No rales, rhonchi or wheeze noted.. Heart: Regular rate and rhythm. No murmurs, click, rubs or gallops are noted. Extremities: No clubbing, cyanosis nor edema is noted. No edema BLE, skin intact, legs hairless, decreased PP with varicose Psych: Normal eye contact, affect and mood appropriate, and normal interactions. Patient is alert and appropriate to context. During todays TCM visit, the d/c summary was reviewed, along with the need for or follow-up on pending diagnostic tests and treatments, as necessary interaction with other health home care coordinator who will assume or reassume care of the beneficiary?s system-specific problems was done or is being worked on, education was provided to the beneficiary, family, guardian, and/or caregiver, referrals to establish or re-establish and arrange needed community resources we completed, assistance in scheduling required follow-up with community providers and services & finally updated medication list given to patient/caregiver Plan Increase levo to 125mcg QD Repeat TSH in 4 weeks Cont care w/ cards and all other meds RTO end of December as scheduled, sooner PRN Total time spent caring for the patient today was 40 minutes. This includes time spent before the visit reviewing the chart, time spent during the visit, and time spent after the visit on documentation, reviewing laboratory results, diagnostic imaging, medications, performing a medically necessary evaluation, counseling on diagnoses, care coordination, ordering appropriate tests, ordering appropriate medications, review of tests performed by other providers, reporting test results with the patient, communication with other healthcare providers. [facility] Medical History (Updated 11/21/24 @ 12:24 by Jessenia Joyner [facility]) History of cardioversion (~11/2024) FH: cholecystectomy Cataract Pacemaker Surgical History H/O discectomy History of hip replacement History of bladder surgery Family History Mother Alcohol abuse Cancer Father Alcohol abuse Daughter FH: mental illness Asthma Thyroid disorder Social History (Updated 11/21/24 @ 11:38 by Yoselyn Flores CMA) Household Members: Family Both parents involved: No Caregiver staying overnight: No Housing: House Are you a primary care worker to a significant other at home: No Do you presently have visiting nurse or other home services: No 75 years or older and lives alone: No Alcohol intake: never Patient Tobacco Use Status: Former Tobacco user Cigarettes Per Day: 2 Years Smoked: 65 e-Cigarette/Vaping Use: Never Used Second Hand Smoke Exposure: No service: No Current occupational status: retired Cognitive needs: No Hearing needs: No Vision needs: No Questionnaire Thrive Questionnaire Date Thrive assessed: 07/24/24 I am a: Patient What is your living situation today?: I have a steady place to live Within the past 12 months, did the food you bought not last and you didn't have the money to get more?: Never true Within the past 12 months, did you worry whether your food would run out before you got money to buy more?: Never true Do you have trouble paying for medicines?: No Do you have trouble getting transportation to medical appointments?: No Do you have trouble paying your heating and electricity bill?: No Do you have trouble taking care of your child, family member or friend?: No Do you have trouble with day-to-day activities such as bathing, preparing meals, shopping, managing finances, etc.?: No Are you currently unemployed and looking for a job?: No Are you interested in more education?: No Please select the resources that you would like help with: None Currently or been in a relationship where the following occur: No concerns reported THRIVE Score: 0 AUDIT C Alcohol Use Questionnaire (AUDIT-C) 1. How often do you have a drink containing alcohol?: Never 3. How often do you have six or more drinks on one occasion?: Never Total Score: 0 Physical exam (Primary Care) Vital Signs: Last Vital Signs Temp 97.2 F 11/21/24 11:26 Pulse 76 11/21/24 11:26 Resp 14 11/21/24 11:26 BP 110/78 11/21/24 11:26 Pulse Ox 97 11/21/24 11:26 Oxygen Delivery Method Room Air 11/21/24 11:26 BMI result Body Mass Index 35.7 Tobacco/Smoking Status: Tobacco use Status Tobacco use date assessed 11/21/24 11/21/24 11:32 Patient Tobacco Use Status Former Tobacco user 11/21/24 11:38 e-Cigarette/Vaping Use Never Used 11/21/24 11:38 Thrive Assessment: Date of Thrive Assessment Date Thrive assessed 07/24/24 11/21/24 11:21 Currently or been in a relationship where the following occur: No concerns reported Coding Level of Care Code TCM High MDM <= 14 days Complex EM visit Add On G2211 Diagnoses Hospital discharge follow-up Z09 Acquired hypothyroidism E03.9 Hypothyroidism type: acquired Paroxysmal atrial fibrillation I48.0 Atrial fibrillation type: paroxysmal Chronic systolic congestive heart failure I50.22 Heart failure type: systolic Heart failure chronicity: chronic On amiodarone therapy Z79.899 Assessment & Plan Assessment & Plan (1) Hospital discharge follow-up: Code(s): Z09 - Encounter for follow-up examination after completed treatment for conditions other than malignant neoplasm (2) Hypothyroid: Code(s): E03.9 - Hypothyroidism, unspecified Category: Medical Qualifiers: Hypothyroidism type: acquired Qualified Code(s): E03.9 - Hypothyroidism, unspecified (3) Afib: Comment: with secondary hypercoaguable state on BB and Eliquis managed by [employer] Code(s): I48.91 - Unspecified atrial fibrillation Category: Medical Qualifiers: Atrial fibrillation type: paroxysmal Qualified Code(s): I48.0 - Paroxysmal atrial fibrillation (4) CHF (congestive heart failure): Comment: Fluid status euvolemic, no evidence of overload 06/12/22 Echo with EF 40-45% Echo 11/29/23 results pending Managed on entresto, bisoprolol. Encouraged daily wts, fluids restrictions and low Na+ diet. Managed by [employer] Code(s): I50.9 - Heart failure, unspecified Category: Medical Qualifiers: Heart failure type: systolic Heart failure chronicity: chronic Qualified Code(s): I50.22 - Chronic systolic (congestive) heart failure (5) On amiodarone therapy: Code(s): Z79.899 - Other terminal gauger supervisor (current) drug therapy Category: Medical Plan . Orders: Orders TSH reflex Free T4 4 Weeks E03.9 - Hypothyroidism, unspecified Medications: New levothyroxine (Levoxyl) 25 mcg PO DAILY 90 tabs 0RF
[2024-11-21 11:26] VITALS: BP 110/78; PULSE 76; RESP 14; TEMP 36.2; O2SAT 97; BMI 35.7
== END 2024-11-21 12:08 | disposition home or self-care (01) ==
LOC: HO.HMCFM 11:15
PROVIDERS: PCP Nurse Practitioner Family; Visit Provider Nurse Practitioner Family
DX: I48.0 Paroxysmal atrial fibrillation (principal); I50.22 Chronic systolic (congestive) heart failure; Z09 Encounter for follow-up examination after completed treatment for conditions other than malignant neoplasm; E03.9 Hypothyroidism, unspecified; Z79.899 Other long term (current) drug therapy

== ENCOUNTER → 2024-11-21 11:14 | Outpatient (BNVA) | payer MEDICARE, SELFPAY | PROVIDERS: PCP Nurse Practitioner Family; Visit Provider Nurse Practitioner Family | DX: Z09 Encounter for follow-up examination after completed treatment for conditions other than malignant neoplasm (principal); E03.9 Hypothyroidism, unspecified; I48.0 Paroxysmal atrial fibrillation; I50.22 Chronic systolic (congestive) heart failure; Z79.899 Other long term (current) drug therapy; Z87.891 Personal history of nicotine dependence | CPT/HCPCS: 99212 ==

== ENCOUNTER → 2024-12-12 23:59 | Outpatient (BNV) | payer MEDICARE, SELFPAY | PROVIDERS: PCP Nurse Practitioner Family; Visit Provider Family Medicine | DX: I48.0 Paroxysmal atrial fibrillation (principal); I13.0 Hypertensive heart and chronic kidney disease with heart failure and stage 1 through stage 4 chronic kidney disease, or unspecified chronic kidney disease; I50.22 Chronic systolic (congestive) heart failure; N18.9 Chronic kidney disease, unspecified | CPT/HCPCS: G0180 ==

== ENCOUNTER → 2024-12-17 23:59 | Outpatient (BNV) | payer MEDICARE, SELFPAY | PROVIDERS: PCP Nurse Practitioner Family; Visit Provider Family Medicine | DX: I13.0 Hypertensive heart and chronic kidney disease with heart failure and stage 1 through stage 4 chronic kidney disease, or unspecified chronic kidney disease (principal); I50.22 Chronic systolic (congestive) heart failure; I48.0 Paroxysmal atrial fibrillation; N18.9 Chronic kidney disease, unspecified; J44.9 Chronic obstructive pulmonary disease, unspecified | CPT/HCPCS: G0180 ==

== ENCOUNTER 2024-12-25 08:53 | Outpatient (REF) | payer MEDICARE, SELFPAY ==
--- NOTE | ~2024-12-25 | XR_ITS ---
EXAMINATION: XR CHEST CLINICAL INFORMATION: R05.9 - Cough, unspecified COMPARISON: None available. TECHNIQUE: 2 views of the chest were obtained. FINDINGS: There is a dual-lead pacer device in place with leads extending to the right atrium and right ventricle. There is mild to moderate cardiomegaly. Mediastinal and hilar contours appear normal. Aortic mural calcifications. Mild prominence of the aortic root. The lungs are mildly hyperaerated, however clear bilaterally. There is no pneumothorax or pleural effusion. There is no focal osseous or soft tissue abnormality. XR/XR chest 2V IMPRESSION: 1. Mild to moderate cardiac enlargement with dual-lead pacer device in place. 2. Mild prominence of the aortic root. 3. Findings suggesting COPD without active pulmonary disease. Electronically signed by: Vimal Guy MD 12/25/2024 10:50 AM EDT
[2024-12-25 15:30] LABS: Chlamydia pneumoniae PCR Not Detected (Not Detect.); Coronavirus 229E PCR Not Detected (Not Detect.); Coronavirus HKU1 PCR Not Detected (Not Detect.); Coronavirus NL63 PCR Not Detected (Not Detect.); Coronavirus OC43 PCR Not Detected (Not Detect.); RSV PCR Not Detected (Not Detect.); Rhino/Enterovirus PCR Not Detected (Not Detect.)
[2024-12-25 16:02] LABS: Influenza A H1 PCR Not Detected (Not Detect.); Influenza A H1-2009 PCR Not Detected (Not Detect.); Influenza A H3 PCR Not Detected (Not Detect.); SARS-CoV-2 PCR Not Detected (Not Detect.)
== END 2024-12-25 08:54 | disposition home or self-care (01) ==
LOC: HO.HMGCX 08:53
PROVIDERS: PCP Nurse Practitioner Family; Visit Provider Physician Assistant Medical
DX: R05.1 Acute cough (principal); J06.9 Acute upper respiratory infection, unspecified; J44.9 Chronic obstructive pulmonary disease, unspecified; I48.91 Unspecified atrial fibrillation; Z20.89 Contact with and (suspected) exposure to other communicable diseases; Z51.81 Encounter for therapeutic drug level monitoring; Z79.631 Long term (current) use of antimetabolite agent
CPT/HCPCS: 71046; 87633; 99212

== ENCOUNTER 2024-12-25 08:53 | Outpatient (AMB) | payer MEDICARE, SELFPAY ==
--- OUTSIDE RECORDS SUMMARY | 2024-12-25 09:22 | XMS_ITS | Encounter Summary ---
Author Organization [facility] Address [address] [place] [address] [place] [phone] Phone Care Team Providers Care Carton Wrapper Name Role Phone Ariana Mac GOVERNMENT SALES MANAGER Primary Care Provider + Jessenia Willson GOVERNMENT SALES MANAGER Primary Care Provider Encounter Details Date Type Department Care Team (Late st Contact Info) Description 10/10/2023 Procedure Pass Echo Lab [place] [place] [address] Social History Tobacco Use Types Packs/Day Years Used Date Smoking Tobacco: Former Cigarettes Q uit: 2010 Smokeless Tobacco: Never Alcohol Use Standard Drinks/Week Comments Not Currently 0 (1 standard drink = 0.6 oz pur e alcohol) Education Answer Date Recorded Are you interested in more education? Not on minoo e 09/29/2022 Are you concerned about learning? Not on file 09/29/2022 No 09/29/2022 No 09/29/2022 Digital Access Answer Date Recorded No 10/24/2022 No 10/24/2022 Reliable internet access at home? Not on file 10/24/2022 Device with a working camera? Not on file Comments Unknown Sex and Gender Information Value Date Recorded Sex Assigned at Not on file Legal Sex Female 9:51 AM EDT Gender Identity Not on file Sexual Orientation Not on file documented as of this encounter Plan of Treatment Upcoming Encounters Date Type Department Care Team (Latest Contact Info) Description 12/25/2024 11:15 AM EDT Hospital Encounter Echo Lab [place] [place] [id number] Christo Crowley MD [address] [facility], [address] [place] [id number] [email or web address] 03/04/2025 1:45 PM EDT Office Visit [facility] [address] [place] [address] Dr [address] Floor, [address] [place] [phone] Brandin Steen MD [address] [facility], [address] [place] [phone] [email or web address] 04/29/2025 9:40 AM EST Office Visit [facility] [address] Floor, [address] [place] [phone] Joey Heredia MD [address] [place] [phone] documented as of this encounter Visit Diagnoses Not on filedocumented in this encounter Care Teams Carton Wrapper Relationship Specialty Start Date End Date Ariana Mac NP [address] [place] [id number] PCP - General Nurse Practitioner 09/27/22 11/28/23 Jessenia Willson NP [address] [place] [id number] [email or web address] PCP - General Nurse Practitioner 11/29/23 documented as of this encounter Additional Source Comments The information contained in this document represents components of the legal health record. It is not the complete legal health record.[facility]
--- NOTE | 2024-12-25 09:34 | MHC.OFFWIV ---
Intake Vital Signs 12/25/24 09:35 12/25/24 09:44 Height 5 ft 1 in Weight 190 lb BMI 35.9 BP 100/50 L 90/56 L Blood Pressure Location Rt brachial Lt brachial Position Sitting Sitting Pulse 72 Pulse Source Pulse Oximeter Temp 98.0 F Temp Source Oral Pulse Oximetry (%) 93 Oxygen Delivery Method Room Air Intake Visit Reasons: EP-cough, fever, sob, oxygen level is down Intake Note: presents with head pressure, cough, fogginess, fever off/on, SOB, low 02 sat, unable to lay down for sleeping Patient Tobacco Use Status: Former Tobacco user Allergies amoxicillin Allergy (Mild, Verified 12/25/24 09:37) Rash diazepam (From Valium) Adverse Reaction (Mild, Verified 12/25/24 09:37) AMS lisinopril Adverse Reaction (Mild, Verified 12/25/24 09:37) Cough Do you need a note to return to daycare/school/sports/work: No HPI HPI Comments History of Present Illness Details History of Present Illness - The patient is an 84-year-old female presenting with cough and fatigue. - The cough has been present for a few days, with yellow sputum and sneezing. - She reports significant fatigue, having slept extensively recently. - Shortness of breath has worsened with the current illness. - History of COPD, using Trelegy and Levalbuterol. - History of Atrial Fibrillation, recently started on amiodarone. - Recent exposure to pneumonia through her brother. - Taking Augmentin, prescribed by her son in law, without adverse reactions despite penicillin allergy, for the second day. - She denies fever or chills. - She denies abd pain, n/v/d, CP, runny nose, or congestion. Physical Exam General: Cooperative, healthy appearing, comfortable, no acute distress and well developed Orientation: Patient oriented x3 Limitations: Ambulates with walker Head: Normal to inspection Ears: Hearing grossly normal bilaterally. No tragus tenderness noted. No discharge in the canal. TMs are normal, no bulging noted. Nose: Normal external nose present. Face and sinus: Normal facial exam. No sinus tenderness noted. Eyes: Appearance normal, both eyes and all related structures Neck: Normal visual inspection and Yes full ROM. No lymphadenopathy noted. Respiratory: Diminished breath sounds. No w/r/r noted. Cardiovascular: Regular rate and rhythm. Normal S1 and S2. No m/r/g noted. GI: Normal to inspection. Soft to palpation and nontender, non- distended. No guarding noted. Skin: No rashes or lesions noted Neuro: Patient oriented x3 Extremities: Normal to inspection Patient was informed and verbally consented to the use of an ambient scribe for clinic note documentation during this visit. [facility] Medical History (Updated 11/21/24 @ 12:24 by Jessenia Joyner [facility]) History of cardioversion (~11/2024) FH: cholecystectomy Cataract Pacemaker Surgical History H/O discectomy History of hip replacement History of bladder surgery Family History Mother Alcohol abuse Cancer Father Alcohol abuse Daughter FH: mental illness Asthma Thyroid disorder Social History (Updated 11/21/24 @ 11:38 by Yoselyn Flores CMA) Household Members: Family Both parents involved: No Caregiver staying overnight: No Housing: House Are you a primary healthcare science specialist to a significant other at home: No Do you presently have visiting nurse or other home services: No 75 years or older and lives alone: No Alcohol intake: never Patient Tobacco Use Status: Former Tobacco user Cigarettes Per Day: 2 Years Smoked: 65 e-Cigarette/Vaping Use: Never Used Second Hand Smoke Exposure: No service: No Current occupational status: retired Cognitive needs: No Hearing needs: No Vision needs: No Review of Systems Const All systems reviewed & are unremarkable except as noted in HPI and below Physical Exam Vital Signs: Last Vital Signs Temp 98.0 F 12/25/24 09:35 Pulse 72 12/25/24 09:35 BP 90/56 L 12/25/24 09:44 Pulse Ox 93 12/25/24 09:35 Oxygen Delivery Method Room Air 12/25/24 09:35 BMI result Body Mass Index 35.9 Assessment & Plan Assessment & Plan (1) Cough: Code(s): R05.9 - Cough, unspecified Qualifiers: Cough type: acute Qualified Code(s): R05.1 - Acute cough Plan Most likely CAP vs covid vs flu vs RSV vs viral illness Plan - Obtain a chest X-ray - will order resp panel - continue with Augmentin BID as prescribed - tessalon perles as needed for cough - continue with albuterol as prescribed - advised the ER if cough or fever worsens Orders: Orders Resp Pathogen Panel - [facility] [place] Today J06.9 - Acute upper respiratory infection, unspecified XR chest 2V Today R05.9 - Cough, unspecified Medications: New benzonatate 100 mg PO bid-tid PRN 21 caps 0RF Cough 7 days Coding Level of Care Code Est Pt Level 4 (19501) Diagnoses Acute cough R05.1 Cough type: acute
[2024-12-25 09:35] VITALS: BP 100/50; PULSE 72; TEMP 36.7; O2SAT 93; BMI 35.9
[2024-12-25 09:44] VITALS: BP 90/56
== END 2024-12-25 11:32 | disposition home or self-care (01) ==
PROVIDERS: PCP Nurse Practitioner Family; Visit Provider Physician Assistant Medical
DX: R05.1 Acute cough (principal)

== ENCOUNTER → 2024-12-25 10:35 | Outpatient (BNV) | payer MEDICARE, SELFPAY | PROVIDERS: PCP Nurse Practitioner Family; Visit Provider Radiology Diagnostic Radiology | DX: R05.9 Cough, unspecified (principal); I51.7 Cardiomegaly; Z95.0 Presence of cardiac pacemaker | CPT/HCPCS: 71046 ==

== ENCOUNTER 2024-12-29 08:27 | Outpatient (REF) | payer MEDICARE, SELFPAY ==
--- OUTSIDE RECORDS SUMMARY | 2024-12-29 08:41 | XMS_ITS | Encounter Summary ---
Author Organization [facility] Address [address] [place] [address] Phone Care Team Providers Care Automobile Repossessor Name Role Phone Jessenia Willson PARTY HOST/HOSTESS Primary Care Provider Encounter Details Date Type Department Care Team (Late st Contact Info) Description 12/26/2024 Orders Only [facility] [address], [address] [place], [place] [id number] Provider, MD Sanjeev [facility] [place] [phone] Social History Tobacco Use Types Packs/Day Years [...] on file 09/29/2022 No 09/29/2022 No 09/29/2022 Food Answer Date Recorded Within the past 6 months we worried whether our food would run out before we got money to buy more. Never True 11/11/2024 Within the past 6 months the food we bought just didn't last and we didn't have enough money to get more. Never True Residential Stability Answer Date Recor ded What is your housing situation today? I have jamal sing 11/11/2024 How many times have you move d in the past 12 months? Zero (I did not move) 11/11/2024 Paying for Meds Answer Date Recorded Do you have trouble paying for medicines? No 11/11/2024 Paying Utility Bills Answer Date Record ed Do you have trouble paying your heating or elect ricity bill? No 11/11/2024 Transportation Answer Date Recorded Has the lack of transportati on kept you from medical appointments or from getting medications? No 11/11/2024 Digital Access Answer Date Recorded No 11/11/2024 Yes 11/11/2024 Do you have reliable internet access at home? Ye s 11/11/2024 Do you have a device (e.g., phone, tablet, computer) with a working camera? Yes 11/11/2024 Intimate Partner Violence Answer Date R ecorded Are you denied basic needs s uch as food, clothing, or medical care? No 11/11/2024 In the past 12 months have y ou been in a relationship with a person who hurts, threatens, or tries to control you? No 11/11/2024 Are you denied basic needs s uch as food, clothing, or medical care? No 11/11/2024 In the past 12 months have y ou been in a relationship with a person who hurts, threatens, or tries to control you? No 11/11/2024 Comments Unknown Sex and Gender Information Value Date Recorded Sex Assigned at Not on file Legal Sex Female 9:51 AM EDT Gender Identity Not on file Sexual Orientation Not on file documented as of this encounter Plan of Treatment Upcoming Encounters Date Type Department Care Team (Late st Contact Info) Description 07/24/2024 Procedure Pass [facility] [address] [place] [address] 02/23/2025 10:15 AM EDT Appointment [facility] [address] [place] [address] Christo Crowley MD [address] [place] [address], [address] [address] [email or web address] 03/04/2025 1:45 PM EDT Office Visit [facility] [address] [place] [address] [address] Floor, [address] [place] [address] Brandin Steen MD [address] [place] [address], [address] [address] 04/29/2025 9:40 AM EST Office Visit [facility] [address], [address] [place] [address] Joey Heredia MD [address] [place] [address] documented as of this encounter Procedures Procedure Name Priority Date/Time Associated Diagnosis Comments OUTSIDE EP STUDY Routine 11/21/2024 4:14 PM EDT documented in this encounter Results * Outside EP Study Report Only (11/21/2024 4:14 PM EDT) us Historical Provider MD [facility] Final Result documented in this encounter Visit Diagnoses Not on filedocumented in this encounter Care Teams Automobile Repossessor Relationship Specialty Start Date End Date Jessenia Willson NP [address] [place] [phone] [email or web address] PCP - General Nurse Practitioner 11/29/23 documented as of this encounter Additional Source Comments The information contained in this document represents components of the legal health record. It is not the complete legal health record.[facility]
== END 2024-12-29 08:28 | disposition home or self-care (01) ==
LOC: HO.WFDLDS 08:27
PROVIDERS: Visit Provider Nurse Practitioner Family
DX: E03.9 Hypothyroidism, unspecified (principal)
CPT/HCPCS: 36415; 84443

== ENCOUNTER 2024-12-31 11:36 | Outpatient (AMB) | payer MEDICARE, SELFPAY ==
--- NOTE | 2024-12-31 11:41 | A.OFFVIS_ITS ---
Intake Vital Signs 12/31/24 11:52 12/31/24 12:39 Height 5 ft 1 in Weight 187 lb 8 oz BMI 35.4 BP 142/74 H 118/62 Blood Pressure Location Rt brachial Rt brachial Position Sitting Sitting Respiration 13 Pulse 76 Pulse Source Pulse Oximeter Temp 97.5 F Temp Source Oral Pulse Oximetry (%) 96 Oxygen Delivery Method Room Air Intake Visit Reasons: DECEMBER 31 MIN AWV Intake Note: AWV. Patient c/o coughing, and sob. Patient was dx with the flu 12/25/24. 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: No Allergies diazepam (From Valium) Adverse Reaction (Mild, Verified 12/31/24 12:22) AMS lisinopril Adverse Reaction (Mild, Verified 12/31/24 12:22) Cough Medication List - Last Reconciled 12/31/24 by DAREK PeterP- amiodarone starting 11/06/2024 will be at one a day amoxicillin-pot clavulanate 875-125 mg 1 tab PO BID apixaban (Eliquis) 5 mg PO BID benzonatate 100 mg PO bid-tid PRN 7 days bisoprolol fumarate 5 mg PO DAILY cholecalciferol (vitamin D3) 50 mcg PO DAILY kmsalvpcxyt-bjzwdymop-zgqdyigq 200-62.5-25 mcg (Trelegy Ellipta) 1 ea inhalation DAILY kdkzwlinvbl-mlynwicvx-suvdlzxw 200-62.5-25 mcg (Trelegy Ellipta) 1 inh inhalation DAILY furosemide 20 mg PO DAILY levalbuterol tartrate 45 mcg/actuation inhalation PRN levothyroxine (Levoxyl) 125 mcg PO DAILY sacubitril-valsartan 97-103 mg (Entresto) 1 tab PO BID vitamins A,C,U-xusl-judlpz 4,296 mcg-226 mg-90 mg (PreserVision AREDS) 1 cap PO BID Do you need a note to return to daycare/school/sports/work: No HPI HPI Comments History of Present Illness Details 84 y/o F with HTN, HLD, Hypothyroid, 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 The Medicare Annual Wellness Visit (AWV) is a yearly appointment with a health professional to identify health risks and help reduce them and to create or update a personalized prevention plan. During a Medicare AWV, health professionals should also review any current opioid prescriptions, detect any cognitive impairment, and establish or update medical and family history. SurgHx: s/p proplapsed bladder repair 1981, angiogram 2022, herniated lumbar disc repair 1965, Lt breast bx negative 1962, cataract surgery 2001, L hip replacement 2020, tubal ligation 1968, cholecystectomy 2022 Family hx: Father etoh, lung ca Mother breast ca, CHF, sudden cardiac Youngest brother 2024 Brother alive Afib Sister alive depression, childhood Sz 6 brothers, 4 sisters. 2 brothers, 1 si ster living 6 children. 5 living. SocHx: Y Health Maintenance: See scanned preventative medicine assessment with personalized health plan and screening schedule. Colon done in the past, declines future screen Mammo done in the past, declines future screen Dexa done in the past, declines future screen, + osteoporosis s/p fosamax PAP - no longer indicated Vaccines - UTD on Shingles, Zoster, Tdap, COVID + boosters, Pneumococcal, RSV, gets annual flu shot PFT 10/2022 Echo 11/29/23 Stress test 2021 AAA screen: NA EKG: Managed by Rebecca [place] of Care: Pulmars [facility] Card Dr Crowley in [place] routine fu, Echo Summer 2023 Visual Acuity: annual eye exams, no changes Hearing Screening: CURTIS bilat, not interested in f/u ACP: Healthcare proxy and MOLST, Scanned into chart. The patient was a full code however she does not want dialysis. Dietary/Nutrition/Exercise Edu provided: Y During the course of the visit the patient was educated and counseled about tegan ropriate screening and preventative services. Patient instructions were provided to the patient in written or electronic format. I have reviewed and verified the above information. History of Present Illness - The patient is an 84-year-old female p resenting for a Medicare Annual Wellness Visit. - Reports Essential Hypertension and Hyp erlipidemia. - Managed Hypothyroidism with Levoxyl. - COPD: recent upper respiratory symptom s identified as parainfluenza. - Experienced parainfluenza symptoms with associated cough affecting urinary function - Sick sinus syndrome, pacemaker placed. - History of PVD and Obesity. - Vitamin D deficiency supplementation o ngoing. - Chronic Kidney Disease and Age-Related Cataracts. - CHF with secondary hyperaldosteronism. - Atrial Fibrillation, managed with eliq uis. - Urinary incontinence; bladder prolapse post sling procedure. - Managing Major Depressive Disorder and Generalized Anxiety Disorder. - Confirmed Osteoporosis. - New dx VERNON will require CPAP has not s tarted yet; pulm to manage this Social History - No tobacco use currently. - Manages daily living independently wit h assistance from daughter. - Regularly organized medication routine . - Engages in maintaining personal living space. Health Maintenance - Up to date on vaccinations including t he flu shot. - Completed cholesterol and diabetes scr eening with normal results. - Declined further mammograms, colonosco pies, and bone density tests. Review of Systems - General: Reports feeling unwell due to recent illness. - Respiratory: Reports cough with parain fluenza, increased with COPD. - Cardiovascular: Denies dizziness when standing, reports sleeplessness. - Genitourinary: Reports urinary inconti nence. - Musculoskeletal: Denies pain; confirma tion of osteoporosis. - Neurological: Reports memory function intact on brief cognitive assessment. - Mental Health: Reports managing depres caitie and anxiety. - Allergies: Confirms seasonal allergies . Exam: General: Well developed, well nourished, in no acute distress. Appears younger than stated age. Head: Normocephalic, atraumatic. Eyes: Pupils are equal, round and reactive to light and accommodation. Conjun ctivae are clear. Vision grossly normal. Ears: Tympanic membranes clear bilaterally Nose: Mild congestion Mouth: There are no ulcers or lesions noted. No inflammation, no post nasal drip, no plaques nor exudates. Neck: Supple, no adenopathy or thyromegaly. No tenderness or lumps noted. Lungs: Dim throughout, ins/exp wheeze, tight cough w/o distress Heart: Regular rate and rhythm. No murmurs, click, rubs or gallops are noted. Musculoskeletal: Joints are nontender, without swelling, redness, or effusions. Range of motion is observed to be normal.. Extremities: No clubbing, cyanosis nor edema is noted. No edema BLE, skin intact, legs hairless, decreased PP with varicosities Neurologic: Gait and station normal. Cranial Nerves 2-12 intact. Motor strength grossly symmetrical and intact. No sensory loss. Balance normal. Skin: No rashes, ulcers noted. Turgor is good. Skin color is good. Hair and nails are without abnormalities. Noted two small cystic lesions, 1 under the left orbit and one on the right cheek. Psych: Normal eye contact, affect and mood appropriate, and normal interactions. Patient is alert and appropriate to context. Results - Labs: Completed cholesterol screen. - Tests and Diagnostics: Recent sleep st udy, CPAP advised due to 12 apneas noted. Discussion Notes I discussed with the patient the cause of her presenting upper respiratory symptoms, diagnosed as parainfluenza virus. The treatment options including antibiotics and prednisone were reviewed to manage the risk given her COPD history. I elaborated on the importance of starting the CPAP as advised by the head of housekeeping from her recent sleep study findings. The patient declined continued mammograms and colonoscopies and confirmed maintaining current health maintenance strategies. I ensured her understanding of the medications prescribed and their role in addressing both acute and chronic conditions. A follow-up plan including a potential antibiotic course and steroid use was discussed, emphasizing when to seek additional care if symptoms do not improve. Assessment and Plan 1. Parainfluenza with Secondary Infectio n Risk - Augmentin for 9 days, Prednisone 20 mg daily. - cont inhalers ans cough suppressant - RTO and edu instructions provided 2. Chronic Obstructive Pulmonary Disease (COPD)/ VERNON - Continue Trelegy, Levalbuterol, and in itiate CPAP. 3. Atrial Fibrillation - Continue eliquis. & care w/ cards 4. Congestive Heart Failure - Monitor fluid and treatment needs. cont all meds Patient Instructions - Take Augmentin with food as directed. - Start prednisone today with food and c ontinue for 5 days. - start CPAP once symptoms improve. - Follow regular medication schedule. - cont care w/ team, cont all meds - RTO 6 mo routine fu - Monitor respiratory symptoms and seek care if worsens. Consent Patient was informed and verbally consented to the use of an ambient scribe for clinic note documentation during this visit. An additional 45 minutes was spent addressing the problem(s) noted at todays visit. This includes time spent before the visit reviewing the chart, time spent during the visit, and time spent after the visit on documentation reviewing laboratory results, diagnostic imaging, medications, performing a medically necessary evaluation, counseling on diagnoses, care coordination, ordering appropriate tests, ordering appropriate medications, review of tests performed by other providers, reporting test results with the patient, communication with other healthcare providers. [facility] Medical History (Updated 01/01/25 @ 12:14 by Jessenia Joyner, [facility]) Cataract FH: cholecystectomy History of cardioversion (~11/2024) Pacemaker Right wrist fracture Skin abscess Surgical History H/O discectomy History of bladder surgery History of hip replacement Family History Mother Alcohol abuse Cancer Father Alcohol abuse Daughter FH: mental illness Asthma Thyroid disorder Social History (Updated 11/21/24 @ 11:38 by Yoselyn Flores CMA) Household Members: Family Both parents involved: No Caregiver staying overnight: No Housing: House Are you a primary campground caretaker to a significant other at home: No Do you presently have visiting nurse or other home services: No 75 years or older and lives alone: No Alcohol intake: never Patient Tobacco Use Status: Former Tobacco user Cigarettes Per Day: 2 Years Smoked: 65 e-Cigarette/Vaping Use: Never Used Second Hand Smoke Exposure: No service: No Current occupational status: retired Cognitive needs: No Hearing needs: No Vision needs: No Questionnaire Medicare Wellness Checkup What is your age?: 80 or older What gender do you identify with?: female During the past 4 weeks, how much have you been bothered by emotional problems such as feeling anxious, depressed, irritable, sad or downhearted, and blue?: not at all During the past 4 weeks, how much bodily pain have you generally had?: no pain During the past 4 weeks, was someone available to help you if you needed & wanted help?: yes, as much as I wanted During the past 4 weeks, what was the hardest physical activity you could do for at least 2 minutes?: light Can you get to places out of walking distance without help? (For eg., can you travel alone on buses, taxis or drive your car?): Yes Can you go shopping for groceries or clothes without someone's help?: Yes Can you prepare your own meals?: Yes Can you do your housework without help?: Yes Because of any health problems, do you need the help of another person with your personal care needs such as eating, bathing, dressing or getting around the house?: No Can you handle your own money without help?: Yes During the past 4 weeks, how would you rate your health in general?: very good During the past 4 weeks how have things been going for you?: pretty well Are you having difficulties driving your car?: no Do you always fasten your seat belt when you are in a car?: yes, usually During past 4 weeks, have you been bothered by the following: never: Falling or dizzy when standing up, Sexual problems?, Trouble eating well?, Teeth or denture problems?, Problems using the telephone? and Tiredness or fatigue? Have you fallen 2 or more times in the past year?: No Are you afraid of falling?: No Are you a smoker?: no During the past 4 weeks, how many drinks of wine, beer, or other alcoholic beverages did you have?: no alcohol at all Do you exercise for about 20 minutes 3 or more times a week?: yes, some of the time Have you been given information to help with the following?: no: Hazards in your house that might hurt you? and no: Keeping track of your medications? How often do you have trouble taking medicines the way you have been told to take them?: I always take medicine as prescribed How confident are you that you can control & manage most of your health problems?: very confident What is your race?: White Activity of Daily Living Bathing - sponge bath, tub bath or shower: receives no assistance (gets in/out by self, if usual bathing means Dressing - getting clothes from closets & drawers, including inner/outer garments & fasteners.: gets clothes & gets completely dressed without help Toileting - going to the 'toilet room' for urine/bowel elimination & cleaning se lf/arranging clothes: goes to toilet room, cleans self, arranges clothes without help Transfer: moves in & out of bed and chair without help (may use support object) Continence: has occasional 'accidents' Feeding: feeds self without help Total Score: 0 Information obtained from: patient Using telephone: independent Traveling: independent Shopping: independent Preparing meals: independent Housework: independent Taking medicine: independent Managing money: independent PHQ-9 Over the last 2 weeks, how often have you been bothered by any of the following problems? 1. Little interest or pleasure in doing things: not at all 2. Feeling down, depressed, or hopeless: not at all 3. Trouble falling or staying asleep, or sleeping too much: not at all 4. Feeling tired or having little energy: not at all 5. Poor appetite or overeating: not at all 6. Feeling bad about yourself - or that you are a failure or have let yourself or your family down: not at all 7. Trouble concentrating on things, such as reading the newspaper or watching television: not at all 8. Moving or speaking so slowly that other people could have noticed. Or the opposite - being so fidgety or restless that you have been moving around a lot more than usual: not at all 9. Thoughts that you would be better off or of hurting yourself in some way: not at all Total score: 0 Depression Screening Interpretation: Negative Depression Screening Done: Yes 10396 - PHQ-9 Billing: Yes Source: Developed by Drs. Artemio Vo, Lupe Simons, Nils Toro and colleagues, with an educational paloma from [employer]. Physical Exam Vital Signs: Last Vital Signs Temp 97.5 F 12/31/24 11:52 Pulse 76 12/31/24 11:52 Resp 13 12/31/24 11:52 BP 118/62 12/31/24 12:39 Pulse Ox 96 12/31/24 11:52 Oxygen Delivery Method Room Air 12/31/24 11:52 BMI result Body Mass Index 35.4 Office Procedures Vision Screening Right Eye: 20/25 Left Eye: 20/25 Bilateral: 20/30 Color: Pass 50409 - Vision Screening Results AMB Hemoglobin A1c AMB Hemoglobin A1c 5.4 % Last Edit by Ronal Grant MA on 12/31/24 12:10 Results Reviewed Results Reviewed: Laboratory Last Values Hgb A1c (Clinic) 5.4 % (4.0-6.0) 12/31/24 11:56 Assessment & Plan Assessment & Plan (1) Encounter for subsequent annual wellness visit (AWV) in Medicare patient: Onset Date: ~12/31/24 Code(s): Z00.00 - Encounter for general adult medical examination without abnormal findings (2) VERNON on CPAP: Onset Date: ~12/2024 Comment: MANAGED BY DR TABBY WILSON Code(s): G47.33 - Obstructive sleep apnea (adult) (pediatric) (3) ACP (advance care planning): Code(s): Z71.89 - Other specified counseling (4) Hypothyroid: Code(s): E03.9 - Hypothyroidism, unspecified Qualifiers: Hypothyroidism type: acquired Qualified Code(s): E03.9 - Hypothyroidism, unspecified (5) Urinary incontinence: Code(s): R32 - Unspecified urinary incontinence Qualifiers: Urinary Incontinence type: mixed stress and urge incontinence Qualified Code(s): N39.46 - Mixed incontinence (6) CKD stage 3a, GFR 45-59 ml/min: Comment: gfr 50 on arb Code(s): N18.31 - Chronic kidney disease, stage 3a (7) Physician orders for life-sustaining treatment (POLST) form indicates patient wish for full code resuscitation status: Code(s): Z78.9 - Other specified health status (8) Parainfluenza: Code(s): B34.8 - Other viral infections of unspecified site (9) Negative depression screening: Comment: hx of MDD, negative screening today, not on meds Code(s): Z13.31 - Encounter for screening for depression (10) Encounter for screening examination for mental health and behavioral disorders: Code(s): Z13.30 - Encounter for screening examination for mental health and behavioral disorders, unspecified (11) HTN (hypertension): Comment: goal <130/80 controlled on current meds Code(s): I10 - Essential (primary) hypertension Qualifiers: Hypertension type: primary hypertension Qualified Code(s): I10 - Essential (primary) hypertension (12) CHF (congestive heart failure): Comment: Fluid status euvolemic, no evidence of overload 06/12/22 Echo with EF 40-45% Echo 11/29/23 results pending Managed on entresto, bisoprolol. Encouraged daily wts, fluids restrictions and low Na+ diet. Managed by Cards Code(s): I50.9 - Heart failure, unspecified Qualifiers: Heart failure type: systolic Heart failure chronicity: chronic Qualified Code(s): I50.22 - Chronic systolic (congestive) heart failure (13) Pacemaker: Comment: SA node dysfunction with permanent pacemaker. Denies palps. Monitor for arr hythmia, cont routine fu with Cards. Code(s): Z95.0 - Presence of cardiac pacemaker (14) Afib: Comment: with secondary hypercoaguable state on BB and Eliquis managed by Cards Code(s): I48.91 - Unspecified atrial fibrillation Qualifiers: Atrial fibrillation type: paroxysmal Qualified Code(s): I48.0 - Paroxysmal atrial fibrillation (15) On amiodarone therapy: Code(s): Z79.899 - Other senior care (current) drug therapy (16) PVD (peripheral vascular disease): Comment: 11/13/23 Quantaflow mild 0.89-0.60, Left foot 0.79 right foot 1.11 e/b above results, encouraged good foot care, instructed pt to monitor s/sx of skin breakdown Code(s): I73.9 - Peripheral vascular disease, unspecified (17) Hyperlipidemia: Comment: LDL goal < 70 , not currently on statin, check LDL today. Code(s): E78.5 - Hyperlipidemia, unspecified Qualifiers: Hyperlipidemia type: mixed hyperlipidemia Qualified Code(s): E78.2 - Mixed hyperlipidemia (18) Secondary hypercoagulability disorder: Comment: see Afib Code(s): D68.69 - Other thrombophilia (19) Secondary hyperaldosteronism: Comment: d/t CHF. Pt with activation of RAAS as e/b entresto, stable. Monitor for renal function signs of hypoperfusion. Code(s): E26.1 - Secondary hyperaldosteronism (20) Osteoporosis: Comment: on last DEXA s/p fosomax, denies future imaging. Fall risk preventions, Ca + Vit D Code(s): M81.0 - Age-related osteoporosis without current pathological fracture Qualifiers: Osteoporosis type: age-related Presence of current pathological fracture: without current pathological fracture Qualified Code(s): M81.0 - Age- related osteoporosis without current pathological fracture (21) Obesity with serious comorbidity: Comment: with HTN and CHF BMI > 35 Code(s): E66.9 - Obesity, unspecified Qualifiers: Obesity type: due to excess calories Obesity classification: adult class 2 (BMI 35 - 39.9) Body mass index: BMI 35.0-35.9 Qualified Code(s): E66.01 - Morbid (severe) obesity due to excess calories; Z68.35 - Body mass index [BMI] 35.0-35.9, adult (22) Seasonal allergies: Code(s): J30.2 - Other seasonal allergic rhinitis (23) Asthma-COPD overlap syndrome: Comment: stable w/o exacerbation continue Trelegy and ROSHAN Monitor for worsening SOB, cough. Get annual vaccines as recommended Managed by Pulm PFT 10/23/22 FEV1/FVC 56% Code(s): J44.89 - Other specified chronic obstructive pulmonary disease Plan . Orders: Orders AMB Hemoglobin A1c 12/31/24 Z13.9 - Encounter for screening, unspecified Medications: New prednisone 20 mg PO DAILY 5 tabs 0RF Patient Instructions: Health screenings for women You should visit your health care provider from time to time, even if you are healthy. The purpose of these visits is to: Screen for medical issues Assess your risk for future medical problems Encourage a healthy lifestyle Update vaccinations and other preventive care services Help you get to know your provider in case of an illness Information Even if you feel fine, you should still see your provider for regular checkups. These visits can help you avoid problems in the future. For example, the only way to find out if you have high blood pressure is to have it checked regularly. High blood sugar and high cholesterol levels also may not have any symptoms in the early stages. A simple blood test can check for these conditions. There are specific times when you should see your provider or receive specific health screenings. The [place] Preventive Services Task Force publishes a list of recommended screenings. Below are screening guidelines for women ages 18 to 39. BLOOD PRESSURE SCREENING Your blood pressure should be checked at least once every 3 to 5 years if: Your blood pressure is in the normal range (top number less than 120 mm Hg and bottom number less than 80 mm Hg) You don't have risk factors for high blood pressure Ask your provider if you need your blood pressure checked more often if: The top number is 120 to 129 mm Hg or the bottom number is 70 to 79 mm Hg You have diabetes, heart disease, kidney problems, are overweight, or have certain other health conditions You have a first-degree relative with high blood pressure You are Black You had high blood pressure during a If the top number is 130 mm Hg or greater or the bottom number is 80 mm Hg or greater, this is considered stage 1 hypertension. Schedule an appointment with your provider to learn how you can reduce your blood pressure. Watch for blood pressure screenings in your area. Ask your provider if you can stop in to have your blood pressure checked. BREAST CANCER SCREENING Experts do not agree about the benefits of breast self-exams in finding breast cancer or saving lives. Talk to your provider about what is best for you. A screening mammogram is not recommended for most women under age 40. Your provider may discuss and recommend mammograms, MRI scans, or ultrasounds if you have an increased risk for breast cancer, such as: A mother or sister who had breast cancer at a young age (most often starting screening earlier than the age the close relative was diagnosed) You carry a high-risk genetic marker CERVICAL CANCER SCREENING Cervical cancer screening should start at age 21 years unless your provider advises otherwise. After the first test: Women ages 21 through 29 should have a Pap test every 3 years. Exoprts do not agree on whether HPV testing is recommended for this age group. Women ages 30 through 65 should be screened with either a Pap test every 3 years or the HPV test every 5 years or both tests every 5 years (called cotesting ). Women who have been treated for precancer (cervical dysplasia) should continue to have Pap tests for 20 years after treatment or until age 65, whichever is longer. If you have had your uterus and cervix removed (total hysterectomy), and you have not been diagnosed with cervical cancer or precancer (high grade cervical neoplasia), you do not need cervical cancer screening. CHOLESTEROL SCREENING Cholesterol screening should begin at: Age 45 for women with no known risk factors for coronary heart disease Age 20 for women with known risk factors for coronary heart disease Repeat cholesterol screening should take place: Every 5 years for women with normal cholesterol levels More often if changes occur in lifestyle (including weight gain and diet) More often if you have diabetes, heart disease, kidney problems, or certain other conditions DIABETES SCREENING You should be screened for diabetes starting at age 35 and then repeated every 3 years if you have no risk factors for diabetes. Screening may need to start earlier and be repeated more often if you have other risk factors for diabetes, such as: You have a first degree relative with diabetes. You are overweight or have obesity. You have high blood pressure, prediabetes, or a history of heart disease. Screening for diabetes should be done if you are planning to become and you are overweight and have other risk factors such as high blood pressure. DENTAL EXAM Go to the dentist once or twice every year for an exam and cleaning. Your dentist will evaluate if you need more frequent visits. EYE EXAM Have an eye exam every 5 to 10 years before age 40. If you have vision problems, have an eye exam every 2 years or more often if recommended by your provider. You should have an eye exam that includes an examination of your retina (back of your eye) at least every year if you have diabetes. IMMUNIZATIONS Commonly needed vaccines include: Flu shot: get one every year. COVID-19 vaccine: ask your provider what is best for you. Tetanus-diphtheria and acellular pertussis (Tdap) vaccine: have one at or after age 19 as one of your tetanus-diphtheria vaccines if you did not receive it as an adolescent. Tetanus-diphtheria: have a booster (or Tdap) every 10 years. Varicella vaccine: receive 2 doses if you never had chickenpox or the varicella vaccine. Hepatitis B vaccine: receive 2, 3, or 4 doses, depending on your exact circumstances. Measles, mumps, and rubella (MMR) vaccine: receive 1 to 2 doses if you are not already immune to MMR. Your provider can tell you if you are immune. Ask your provider about the human papillomavirus (HPV) vaccine if: You have not received the HPV vaccine in the past You have not completed the full vaccine series (you should catch up on this shot) Ask your provider if you should receive other immunizations if you have certain health problems that increase your risk for some diseases such as pneumonia. INFECTIOUS DISEASE SCREENING Women who are sexually active should be screened for chlamydia and gonorrhea up until age 25. Women 25 years and older should be screened for chlamydia and gonorrhea if at high risk. Screening for hepatitis C: All adults ages 18 to 79 should get a one-time test for hepatitis C. people should be screened at every . Screening for human immunodeficiency virus (HIV): All people ages 15 to 65 should get a one-time test for HIV. Depending on your lifestyle and medical history, you may also need to be screened for infections such as syphilis and HIV, as well as other infections. PHYSICAL EXAM All adults should visit their provider from time to time, even if they are healthy. The purpose of these visits is to: Screen for disease Assess your risk of future medical problems Encourage a healthy lifestyle Update your vaccinations and other preventive care services Maintain a relationship with a provider in case of an illness Your height, weight, and BMI should be checked at every exam. During your exam, your provider may ask you about: Depression and anxiety Diet and exercise Alcohol and tobacco use Safety issues, such as using seat belts, smoke detectors, and intimate partner violence Your medicines and risk for interactions SKIN SELF-EXAM Your provider may check your skin for signs of skin cancer, especially if you're at high risk, such as if you: Have had skin cancer before Have close relatives with skin cancer Have a weakened immune system OTHER SCREENING Talk with your provider about colon cancer screening if you have a strong family history of colon cancer or polyps, or if you have had inflammatory bowel disease or polyps yourself. Routine bone density screening of women under 40 is not recommended. Quality Reporting (2019) Adult ([facility] 138//) Smoking risk assessment performed?: Yes Patient Tobacco Use Status: Former Tobacco user Depression screening performed: Yes Screen Results: Yes Negative screen Systolic BP not done?: No Diastolic BP not done?: No BMI screening not done: No Sexual Activity Screening ([facility] 153) Sexually active?: No Immunizations ([facility] 147, 117) Annual Influenza Vaccine: No (not flu season) Measles Antibody Test: No Mumps Antibody Test: No Rubella Antibody Test: No Varicella Antibody Test: No Anti Hepatitis A IgG Antigen test: No Anti Hepatitis B Virus Surface Ab test: No Fall Risk Screening ([facility] 139) Last assessed Fall Risk: 12/31/24 Fall risk assessment: No Falls in past year Dementia Assessment ([facility] 149) Cognitive assessment recorded: Yes Assessment of cognition with standardized tool: Yes (6 cit 09/29) Depression/Bipolar (159/160/161/177) PHQ-9: Total score: 0 Ophthalmol:Cataracts Visual Acuity (133) Visual acuity exam performed: Yes (see results) Coding Level of Care Code Medicare Subsequent (G0439) Est Pt Level 5 (72898) Diagnoses Encounter for subsequent annual wellness visit (AWV) in Medicare patient Z00.00 VERNON on CPAP G47.33 ACP (advance care planning) Z71.89 Acquired hypothyroidism E03.9 Hypothyroidism type: acquired Mixed stress and urge urinary incontinence N39.46 Urinary Incontinence type: mixed stress and urge incontinence CKD stage 3a, GFR 45-59 ml/min N18.31 Physician orders for life-sustaining treatment (POLST) form indicates patient wish for full code resuscitation status Z78.9 Parainfluenza B34.8 Negative depression screening Z13.31 Encounter for screening examination for mental health and behavioral disorders Z13.30 Primary hypertension I10 Hypertension type: primary hypertension Chronic systolic congestive heart failure I50.22 Heart failure type: systolic Heart failure chronicity: chronic Pacemaker Z95.0 Paroxysmal atrial fibrillation I48.0 Atrial fibrillation type: paroxysmal On amiodarone therapy Z79.899 PVD (peripheral vascular disease) I73.9 Mixed hyperlipidemia E78.2 Hyperlipidemia type: mixed hyperlipidemia Secondary hypercoagulability disorder D68.69 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 Age-related osteoporosis without current pathological fracture M81.0 Osteoporosis type: age-related Presence of current pathological fracture: without current pathological fracture Class 2 severe obesity due to excess calories with serious comorbidity and body mass index (BMI) of 35.0 to 35.9 in adult E66.01; Z68.35 Obesity type: due to excess calories Obesity classification: adult class 2 (BMI 35 - 39.9) Body mass index: BMI 35.0-35.9 Seasonal allergies J30.2 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
[2024-12-31 11:52] VITALS: BP 142/74; PULSE 76; RESP 13; TEMP 36.4; O2SAT 96; BMI 35.4
--- OUTSIDE RECORDS SUMMARY | 2024-12-31 12:37 | XMS_ITS | Encounter Summary ---
Author Organization [facility] Address [address] [place] [address] Phone Care Team Providers Care Soft Top Installer Name Role Phone Jessenia Willson [employer]ICE Primary Care Provider Encounter Details Date Type Department Care Team (Late st Contact Info) Description 12/26/2024 Orders Only [facility] [address] Floor, [address] [place], [place] [id number] Provider, MD Sanjeev [facility] [place] [phone] Social History Tobacco Use Types Packs/Day Years [...] Info) Description 07/24/2024 Procedure Pass [facility] [address] [place] [address] 02/23/2025 10:15 AM EDT Appointment Echo [facility] [address] [place] [address] Christo Crowley MD [address] [place] [address], [address] [address] [email or web address] 03/04/2025 1:45 PM EDT Office Visit [facility] [address] [place] [address] [address]rd Floor, [address] [place] [address] Brandin Steen MD [address] [place] [address], [address] [address] 04/29/2025 9:40 AM EST Office Visit [facility] [address] Floor, [address] [place] [address] Joey Heredia MD [address] [place] [address] documented as of this encounter Procedures Procedure Name Priority Date/Time Associated Diagnosis Comments OUTSIDE EP STUDY Routine 11/21/2024 4:14 PM EDT documented in this encounter Results * Outside EP Study Report Only (11/21/2024 4:14 PM EDT) us Historical Provider MD [facility] RADHA ASHLEY Final Result documented in this encounter Visit Diagnoses Not on filedocumented in this encounter Care Teams Soft Top Installer Relationship Specialty Start Date End Date Jessenia Willson NP [address] [place] [phone] [email or web address] PCP - General Nurse Practitioner 11/29/23 documented as of this encounter Additional Source Comments The information contained in this document represents components of the legal health record. It is not the complete legal health record.[facility]
[2024-12-31 12:39] VITALS: BP 118/62
== END 2024-12-31 13:50 | disposition home or self-care (01) ==
LOC: HO.HMCFM 11:37
PROVIDERS: PCP Nurse Practitioner Family; Visit Provider Nurse Practitioner Family
DX: Z00.00 Encounter for general adult medical examination without abnormal findings (principal)

== ENCOUNTER → 2024-12-31 11:36 | Outpatient (BNVA) | payer MEDICARE, SELFPAY | PROVIDERS: PCP Nurse Practitioner Family; Visit Provider Nurse Practitioner Family | DX: Z00.01 Encounter for general adult medical examination with abnormal findings (principal); G47.33 Obstructive sleep apnea (adult) (pediatric); E03.9 Hypothyroidism, unspecified; N39.46 Mixed incontinence; N18.31 Chronic kidney disease, stage 3a; B34.8 Other viral infections of unspecified site; I11.0 Hypertensive heart disease with heart failure; I50.22 Chronic systolic (congestive) heart failure; I48.0 Paroxysmal atrial fibrillation; I73.9 Peripheral vascular disease, unspecified; E78.2 Mixed hyperlipidemia; D68.69 Other thrombophilia; E26.1 Secondary hyperaldosteronism; M81.0 Age-related osteoporosis without current pathological fracture; E66.01 Morbid (severe) obesity due to excess calories; Z68.35 Body mass index [BMI] 35.0-35.9, adult; J30.2 Other seasonal allergic rhinitis; J44.89 Other specified chronic obstructive pulmonary disease; Z79.899 Other long term (current) drug therapy; Z71.89 Other specified counseling; Z71.3 Dietary counseling and surveillance; Z95.0 Presence of cardiac pacemaker; Z78.9 Other specified health status | CPT/HCPCS: 83036; 96127; 99212 ==

== ENCOUNTER 2025-01-20 09:34 | Outpatient (REF) | payer MEDICARE, SELFPAY ==
--- NOTE | ~2025-01-20 | XR_ITS ---
EXAMINATION: XR CHEST CLINICAL INFORMATION: J44.89 - Other specified chronic obstructive pulmonary disease COMPARISON: December 25, 2024 TECHNIQUE: 2 views of the chest were obtained. FINDINGS: Indistinct margins in the perihilar regions. Prominence of the interstitial markings. No gross pleural effusion or pneumothorax. Cardiomediastinal silhouette size is mildly prominent, unchanged. 2. Intact electrode leads in the right transverse with a left-sided pacemaker reservoir. Multilevel thoracic and lumbar spondylosis. Osteopenia versus osteoporosis. Calcified plaques, aorta. XR/XR chest 2V IMPRESSION: Mild interstitial lung edema. Atherosclerosis disease, aorta. Osteopenia versus osteoporosis. Electronically signed by: Guerrero Singh MD 01/20/2025 09:46 AM EDT
--- OUTSIDE RECORDS SUMMARY | 2025-01-20 10:39 | XMS_ITS | Encounter Summary ---
Author Organization [facility] Address [address] [place] [address] Phone Care Team Providers Care Children'S Service Worker Name Role Phone Jessenia Willson SENIOR SALES OPERATIONS ANALYST Primary Care Provider Encounter Details Date Type Department Care Team (Late st Contact Info) Description 12/26/2024 Orders Only [facility] [address] Floor, [address] [place], [place] [phone] Provider, MD Sanjeev [facility] [place] [phone] Social History Tobacco Use Types Packs/Day Years [...] Info) Description 07/24/2024 Procedure Pass [facility] [address] [place] [address] 02/23/2025 10:15 AM EDT Appointment [facility] [address] [place] [address] Christo Crowley MD [address] [place] [address], [address] [address] [email or web address] 03/04/2025 1:45 PM EDT Office Visit [facility] [address] [place] [address] [address]rd Floor, [address] [place] [address] Brandin Steen MD [address] [place] [address], [address] [address] 04/29/2025 9:40 AM EST Office Visit [facility] [address], [address] [place] [address] Joey Heredia MD [address] [place] [address] documented as of this encounter Procedures Procedure Name Priority Date/Time Associated Diagnosis Comments OUTSIDE EP STUDY Routine 11/21/2024 4:14 PM EDT documented in this encounter Results * Outside EP Study Report Only (11/21/2024 4:14 PM EDT) us Historical Provider MD [facility] RADHA ASHLEY Final Result documented in this encounter Visit Diagnoses Not on filedocumented in this encounter Care Teams Children'S Service Worker Relationship Specialty Start Date End Date Jessenia Willson NP [address] [place] [phone] [email or web address] PCP - General Nurse Practitioner 11/29/23 documented as of this encounter Additional Source Comments The information contained in this document represents components of the legal health record. It is not the complete legal health record.[facility]
== END 2025-01-20 09:35 | disposition home or self-care (01) ==
LOC: HO.HMGCX 09:34
PROVIDERS: PCP Nurse Practitioner Family; Visit Provider Nurse Practitioner Family
DX: R06.02 Shortness of breath (principal); R05.9 Cough, unspecified; I50.22 Chronic systolic (congestive) heart failure; J44.89 Other specified chronic obstructive pulmonary disease
CPT/HCPCS: 71046

== ENCOUNTER → 2025-01-20 09:38 | Outpatient (BNV) | payer MEDICARE, SELFPAY | PROVIDERS: PCP Nurse Practitioner Family; Visit Provider Radiology Diagnostic Radiology | DX: J44.89 Other specified chronic obstructive pulmonary disease (principal); I70.0 Atherosclerosis of aorta | CPT/HCPCS: 71046 ==

== ENCOUNTER 2025-01-20 12:26 | Outpatient (AMB) | payer MEDICARE, SELFPAY ==
--- NOTE | 2025-01-20 12:27 | A.OFFPC_ITS ---
Intake Visit Reasons: Shortness of breath Allergies diazepam (From Valium) Adverse Reaction (Mild, Verified 01/20/25 12:30) AMS lisinopril Adverse Reaction (Mild, Verified 01/20/25 12:30) Cough Medication List - Last Reconciled 01/20/25 by Jessenia Joyner [facility]- amiodarone starting 11/06/2024 will be at one a day apixaban (Eliquis) 5 mg PO BID bisoprolol fumarate 5 mg PO DAILY cholecalciferol (vitamin D3) 50 mcg PO DAILY cysienvluwp-immeuvrqi-zvltsbll 200-62.5-25 mcg (Trelegy Ellipta) 1 ea inhalation DAILY rinejplvcus-yvbkphthc-opothjki 200-62.5-25 mcg (Trelegy Ellipta) 1 inh inhalation DAILY furosemide 20 mg PO DAILY levalbuterol tartrate 45 mcg/actuation inhalation PRN levothyroxine (Levoxyl) 125 mcg PO DAILY sacubitril-valsartan 97-103 mg (Entresto) 1 tab PO BID vitamins A,C,P-dgkv-pptjhg 4,296 mcg-226 mg-90 mg (PreserVision AREDS) 1 cap PO BID Tobacco use date assessed: 11/21/24 Dental Screening Dental Screen Date: 10/22/24 HPI HPI Comments History of Present Illness Details 84 y/o F with HTN, HLD, Hypothyroid, 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 - Sick w/ parainfluenza weeks ago; tx w/ pred, augmentin and tessalon; Her breathing has not returned to baseline since this insult. c/o hypoxia with exertion 86-91%, + orthopnea, productive cough. Wt stable. No edema. Taking all meds as directed. No fever. - Xray done today stat, see results wayne engel Review of Systems - Respiratory: Reports poor breathing an d oxygen desaturation. - Cardiovascular: Denies chest pain or s ignificant palpitations. Reports edema. - General: Denies fever. Results - Imaging: Chest X-ray indicates pulmona ry interstitial edema; prominent enlargement of the cardiomediastinal silhouette noted; no evidence of pneumonia. Assessment and Plan 1. Pulmonary Edema - Cardiac origin suspected. - Adjust furosemide regimen, take additi onal 20mg now. Dtr Yoil to call and request UV with Cards team. I will fax CXR report. - Monitor blood pressure closely. - Keep me posted via portal Patient was given time to ask questions. All questions were answered to their satisfaction. Telehealth Attestation This telehealth visit was conducted via a phone call, and I attest that the documentation accurately reflects the encounter. The patient has been explained that this is an interactive (audio/video) telehealth encounter and what that consists of. The patient understands and wishes to proceed. [employer] platform was used. Total time spent caring for the patient today was 25 minutes. This includes time spent before the visit reviewing the chart, time spent during the visit, and time spent after the visit on documentation, reviewing laboratory results, diagnostic imaging, medications, performing a medically necessary evaluation, counseling on diagnoses, care coordination, ordering appropriate tests, ordering appropriate medications, review of tests performed by other providers, reporting test results with the patient, communication with other healthcare providers. [facility] Medical History (Updated 01/20/25 @ 12:32 by Jessenia Joyner, [facility]) Cataract FH: cholecystectomy History of cardioversion (~11/2024) Pacemaker Right wrist fracture Skin abscess Surgical History H/O discectomy History of bladder surgery History of hip replacement Family History Mother Alcohol abuse Cancer Father Alcohol abuse Daughter FH: mental illness Asthma Thyroid disorder Social History (Updated 11/21/24 @ 11:38 by Yoselyn Flores CMA) Household Members: Family Both parents involved: No Caregiver staying overnight: No Housing: House Are you a primary care administrative tech to a significant other at home: No Do you presently have visiting nurse or other home services: No 75 years or older and lives alone: No Alcohol intake: never Patient Tobacco Use Status: Former Tobacco user Cigarettes Per Day: 2 Years Smoked: 65 e-Cigarette/Vaping Use: Never Used Second Hand Smoke Exposure: No service: No Current occupational status: retired Cognitive needs: No Hearing needs: No Vision needs: No Questionnaire Thrive Questionnaire Date Thrive assessed: 07/24/24 Physical exam (Primary Care) Tobacco/Smoking Status: Tobacco use Status Tobacco use date assessed 11/21/24 11/21/24 11:32 Patient Tobacco Use Status Former Tobacco user 12/31/24 11:44 e-Cigarette/Vaping Use Never Used 11/21/24 11:38 Thrive Assessment: Date of Thrive Assessment Date Thrive assessed 07/24/24 11/21/24 11:21 Telehealth Telehealth Telehealth Platform: [employer] Location of provider rendering services: practice address Location of patient: address on file Patient Identification confirmed using: Name, : Yes Telehealth method: voice only Patient verbally consented to treatment: Yes Patient verbally consented to billing insurance company: Yes Patient informed of any privacy concerns related to visit: Yes Minutes spent on Phone/Video with Pt.: 8 Results Reviewed Results Reviewed: [facility] Adult Primary Care [facility] [place] [address] XRay Report Signed Patient: La Nena Celaya MR#: [id number] : 1940 Acct:[id number] Age/Sex: 84 / F ADM Date: 01/20/25 Loc: HO.HMGCX Attending Dr: Jessenia JAVIER Ordering Physician: Jessenia Joyner Date of Service: 01/20/25 Procedure(s): XR chest 2V Accession Number(s): [id number] cc: Jessenia Joyner~ EXAMINATION: XR CHEST CLINICAL INFORMATION: J44.89 - Other specified chronic obstructive pulmonary disease COMPARISON: December 25, 2024 TECHNIQUE: 2 views of the chest were obtained. FINDINGS: Indistinct margins in the perihilar regions. Prominence of the interstitial markings. No gross pleural effusion or pneumothorax. Cardiomediastinal silhouette size is mildly prominent, unchanged. 2. Intact electrode leads in the right transverse with a left-sided pacemaker reservoir. Multilevel thoracic and lumbar spondylosis. Osteopenia versus osteoporosis. Calcified plaques, aorta. XR/XR chest 2V IMPRESSION: Mild interstitial lung edema. Atherosclerosis disease, aorta. Osteopenia versus osteoporosis. Electronically signed by: Guerrero Singh MD 01/20/2025 09:46 AM EDT RP Coding Level of Care Code Tele Est Pt Level 3 (04934) Complex EM visit Add On G2211 Diagnoses Chronic systolic congestive heart failure I50.22 Heart failure type: systolic Heart failure chronicity: chronic Acute cough R05.1 Cough type: acute SOB (shortness of breath) R06.02 Assessment & Plan Assessment & Plan (1) CHF (congestive heart failure): Comment: 06/12/22 Echo with EF 40-45% Echo 11/29/23 results pending Managed on entresto, bisoprolol. Encouraged daily wts, fluids restrictions and low Na+ diet. Managed by Cards Code(s): I50.9 - Heart failure, unspecified Category: Medical Qualifiers: Heart failure type: systolic Heart failure chronicity: chronic Qualified Code(s): I50.22 - Chronic systolic (congestive) heart failure (2) Cough: Code(s): R05.9 - Cough, unspecified Qualifiers: Cough type: acute Qualified Code(s): R05.1 - Acute cough (3) SOB (shortness of breath): Code(s): R06.02 - Shortness of breath Plan . Medications: Discontinued benzonatate Discontinued Reason: Patient Completed Course 100 mg PO bid-tid 7 days PRN 21 caps 0RF Cough prednisone Discontinued Reason: Patient Completed Course 20 mg PO DAILY 5 tabs 0RF
== END 2025-01-20 12:27 | disposition home or self-care (01) ==
LOC: HO.HMCFM 12:26
PROVIDERS: PCP Nurse Practitioner Family; Visit Provider Nurse Practitioner Family
DX: I50.22 Chronic systolic (congestive) heart failure (principal); R05.1 Acute cough; R06.02 Shortness of breath

== ENCOUNTER 2025-04-15 08:33 | Outpatient (AMB) | payer MEDICARE, SELFPAY ==
--- NOTE | 2025-04-15 08:40 | A.OFFPC_ITS ---
Vital Signs 3 04/15/25 08:45 Height 5 ft 1 in Weight 188 lb BMI 35.5 BP 144/80 H Blood Pressure Location Lt brachial Position Sitting Respiration 14 Pulse 78 Pulse Source Pulse Oximeter Temp 97.5 F Temp Source Oral Pulse Oximetry (%) 99 Oxygen Delivery Method Room Air Intake Visit Reasons: Back/Hip Pain /flu shot Intake Note: Patient c/o left back px, left hip px x 3 weeks Leadite Worker Required: No Allergies diazepam (From Valium) Adverse Reaction (Mild, Verified 04/15/25 08:41) AMS lisinopril Adverse Reaction (Mild, Verified 04/15/25 08:41) Cough Medication List - Last Reconciled 04/15/25 by SHEILA Peter- amiodarone starting 11/06/2024 will be at one a day apixaban (Eliquis) 5 mg PO BID bisoprolol fumarate 5 mg PO DAILY cholecalciferol (vitamin D3) 50 mcg PO DAILY ayccehkoozw-ivsfrduvs-rgzkshdj 200-62.5-25 mcg (Trelegy Ellipta) 1 ea inhalation DAILY engxekfjeyl-fpyzuueii-uzluaofd 200-62.5-25 mcg (Trelegy Ellipta) 1 inh inhalation DAILY furosemide 40 mg (2 x 20 mg) PO DAILY levalbuterol tartrate 45 mcg/actuation inhalation PRN levothyroxine (Levoxyl) 125 mcg PO DAILY sacubitril-valsartan 97-103 mg (Entresto) 1 tab PO BID vitamins A,C,Q-rzwu-qkfxap 4,296 mcg-226 mg-90 mg (PreserVision AREDS) 1 cap PO BID Tobacco use date assessed: 04/15/25 Fall risk assessment: No Falls in past year Last assessed Fall Risk: 04/15/25 Dental Screening Dental Screen Date: 04/15/25 Did you have a dental visit in the last 12 months?: Yes Did you have a dental problem in the last 6 months where you did not have access to dental care?: No Was dental information given to patient?: Patient has dentist HPI HPI Comments 2 History of Present Illness0 Details 85 y/o F with HTN, HLD, Hypothyroid, 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, 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 s/p pacemaker, PVD, obesity, Vit D def, age related cataracts, CKD, CHF with secondary hyperaldosteronism, Afib with secondary hypercoaguable state, urinary incont, prolapsed bladder s/p sling, MDD, FLYNN, GERD, Osteoporosis, seasonal allergies, VERNON on CPAP s/p proplapsed bladder repair 1981, angiogram 2022, herniated lumbar disc repair 1965, Lt breast bx negative 1962, cataract surgery 2001, L hip replacement 2020, tubal ligation 1968, cholecystectomy 2022, s/p cardioversion History of Present Illness The patient is an 85-year-old female presenting for evaluation of left back and hip pain and for her annual flu shot. Left Hip and Back Pain: - The patient reports the onset of left back and hip pain approximately three weeks ago, describing it as a flare-up. - The pain is sharp and localized, tende r to touch, and has occasionally radiated to the front. - Associated symptoms include some pain with movement, particularly upon first arising in the morning and when standing. - The patient recalls a twisting event a round 3-4 weeks ago when she didn't get her footing, but denies any falls. - She has a history of a left hip replac ement, which was done around 2001, and is concerned about the possibility of the prosthesis leaking. - The patient is currently performing [facility] physical therapy for her right hip, which does not impact the pain in her left hip. - The pain is currently not as severe as it has been. Urinary Symptoms: - The patient reports a little pain when she urinates but denies that it lr as a rule. - She denies any fever, chills, or hemat uria. - She reports urinating normally for her , with the use of Lasix. Health Maintenance: - The patient is due for and requests he r annual flu shot today. - The patient mentions a recent home vis it by her insurance company, which recommended lab work for cholesterol and a bone density scan. - It was established that she is up to d ate on her wellness screenings, having had her annual exam in September and her cholesterol checked in December. Past Medical History - Left total hip arthroplasty, performed circa 2001 - Sleep apnea, managed with a CPAP machi ne - Use of Lasix - Takes AREDS vitamins Review of Systems - Constitutional: Denies fever or chills . - Genitourinary: Reports some pain with urination. Denies hematuria and denies that burning with urination is a regular occurrence. - Musculoskeletal: Reports left-sided ba ck and hip pain for the past three weeks, which is tender to touch and can radiate anteriorly. Pain is worse with initial movement in the morning. - Respiratory: Reports breathing is much better with the use of a CPAP machine. - Integumentary: Reports a recent tick b ite. Diagnostic results Pending Results Pending Medical Decision Making The patient is an 85-year-old female presenting with a three-week history of left hip and back pain, which is tender to palpation and possibly began after a twisting event. The localized tenderness suggests a musculoskeletal cause, such as a muscle strain. However, she also reports some pain on urination, which raises the differential of a urinary tract or kidney issue, even though the pain is lower than the typical CVA location. Given her symptoms, a send-out urinalysis and culture will be performed to rule out a UTI, as this provides a more accurate result than an in-office dipstick. Additionally, the patient has a history of a left total hip arthroplasty from over 20 years ago and is concerned about a hardware issue. To address this and evaluate for other osseous pathology, an X-ray of the left hip and pelvis will be ordered. The plan is to treat with antibiotics if the urinalysis is positive; otherwise, we will await culture results. The patient will also receive her influenza vaccine today. Plan 1. Left Hip And Back Pain - The differential diagnosis includes mu sculoskeletal strain versus a complication related to her remote left total hip arthroplasty. - An X-ray of the left hip and pelvis wi ll be ordered to evaluate the prosthesis and rule out any osseous pathology. - The patient will go to the [facility] facility for the X-ray as a walk-in to ensure results are transmitted efficiently. 2. Dysuria - To investigate for a possible urinary tract infection, a urine sample will be collected today and sent to the lab for urinalysis and culture. - If the initial urinalysis shows eviden ce of infection (blood or bacteria), antibiotics will be prescribed. - If the urinalysis is negative, treatme nt will be held pending the culture results, which take 48 hours. - Results will be communicated to the [place] via the online portal. 3. Health Maintenance - The patient will receive her influenza vaccine during this visit. - Confirmed that the patient is up-to-da te with her annual wellness exam and cholesterol screening; no further action is required at this time regarding her insurance company's recommendations. - Lab order placed, to be done before he r next appt 07/2025. Patient Instructions - You will provide a urine sample today before you leave. I will send you the results through the patient portal. - If your urine test shows signs of an i nfection, I will call in a prescription for antibiotics for you. - An order has been placed for an X-ray of your left hip and pelvis. Please go to the outpatient X-ray department in [place] to have this done. You can go as a walk-in. - You will receive your flu shot today. - For the tick bite, you can apply Vasel ine or a drawing salve with a bandage to help remove any remaining parts of the tick. Consent Patient was informed and verbally consented to the use of an ambient scribe for clinic note documentation during this visit. Total time spent caring for the patient today was 30 minutes. This includes time spent before the visit reviewing the chart, time spent during the visit, and time spent after the visit on documentation, reviewing laboratory results, diagnostic imaging, medications, performing a medically necessary evaluation, counseling on diagnoses, care coordination, ordering appropriate tests, ordering appropriate medications, review of tests performed by other providers, reporting test results with the patient, communication with other healthcare providers. [facility] Medical History (Updated 04/15/25 @ 09:20 by Jessenia Joyner [facility]) Cataract FH: cholecystectomy History of cardioversion (~11/2024) Pacemaker Right wrist fracture Skin abscess Surgical History H/O discectomy History of bladder surgery History of hip replacement Family History Mother Alcohol abuse Cancer Father Alcohol abuse Daughter FH: mental illness Asthma Thyroid disorder Social History (Updated 11/21/24 @ 11:38 by Yoselyn Flores CMA) Household Members: Family Both parents involved: No Caregiver staying overnight: No Housing: House Are you a primary primary care sales representative to a significant other at home: No Do you presently have visiting nurse or other home services: No 75 years or older and lives alone: No Alcohol intake: never Patient Tobacco Use Status: Former Tobacco user Cigarettes Per Day: 2 Years Smoked: 65 e-Cigarette/Vaping Use: Never Used Second Hand Smoke Exposure: No service: No Current occupational status: retired Cognitive needs: No Hearing needs: No Vision needs: No Questionnaire Thrive Questionnaire Date Thrive assessed: 07/24/24 I am a: Patient What is your living situation today?: I have a steady place to live Within the past 12 months, did the food you bought not last and you didn't have the money to get more?: Never true Within the past 12 months, did you worry whether your food would run out before you got money to buy more?: Never true Do you have trouble paying for medicines?: No Do you have trouble getting transportation to medical appointments?: No Do you have trouble paying your heating and electricity bill?: No Do you have trouble taking care of your child, family member or friend?: No Do you have trouble with day-to-day activities such as bathing, preparing meals, shopping, managing finances, etc.?: No Are you currently unemployed and looking for a job?: No Are you interested in more education?: No Please select the resources that you would like help with: None Currently or been in a relationship where the following occur: No concerns reported THRIVE Score: 0 Physical exam (Primary Care) Vital Signs: Last Vital Signs Temp 97.5 F 04/15/25 08:45 Pulse 78 04/15/25 08:45 Resp 14 04/15/25 08:45 BP 144/80 H 04/15/25 08:45 Pulse Ox 99 04/15/25 08:45 Oxygen Delivery Method Room Air 04/15/25 08:45 BMI result Body Mass Index 35.5 Tobacco/Smoking Status: Tobacco use Status Tobacco use date assessed 04/15/25 04/15/25 08:43 Patient Tobacco Use Status Former Tobacco user 04/15/25 08:43 e-Cigarette/Vaping Use Never Used 04/15/25 08:43 Thrive Assessment: Date of Thrive Assessment Date Thrive assessed 07/24/24 04/15/25 08:43 Currently or been in a relationship where the following occur: No concerns reported General: Yes no CVA tenderness Back/Spine/Pelvis Back: no CVA tenderness Thoracic/Lumbar Spine: thoracic and lumbar spine normal to inspection, thoraco- lumbar ROM normal, Lasegue's sign negative bilateral, straight leg raise negative bilaterally and paraspinal muscle tenderness on the left in the lower lumbar Sacroiliac joints: bilaterally nontender Back/spine/pelvis image: 2 1. reproducible pain w/ palpation here. Has pain in this area w/ leg extension from knee to chest. FROM of the L hip w/o pain. LLE neurovasc intact w/ normal strength tone and reflex. Coding Level of Care Code Est Pt Level 4 (01713) Complex EM visit Add On G2211 Diagnoses Dysuria R30.0 Left hip pain M25.552 Influenza vaccination administered at current visit Z23 Assessment & Plan Assessment & Plan (1) Dysuria: Code(s): R30.0 - Dysuria Category: Medical (2) Left hip pain: Code(s): M25.552 - Pain in left hip Category: Medical (3) Influenza vaccination administered at current visit: Onset Date: ~04/15/25 Code(s): Z23 - Encounter for immunization Category: Medical Plan . Orders: Orders 2 Influenza [id number] Immunization Today E03.9 - Hypothyroidism, unspecified, E78.2 - Mixed hyperlipidemia, I10 - Essential (primary) hypertension, M81.0 - Age-related osteoporosis without current pathological fracture, Z23 - Encounter for immunization UA CC w/rflx Micro + Cult Today R30.0 - Dysuria XR hip LT w PEL1V Today M25.552 - Pain in left hip Comprehensive [place]. Panel Fast 07/05/25 E03.9 - Hypothyroidism, unspecified, E78.2 - Mixed hyperlipidemia, I10 - Essential (primary) hypertension, M81.0 - Age-related osteoporosis without current pathological fracture Vitamin D 25-OH Total 07/05/25 E03.9 - Hypothyroidism, unspecified, E78.2 - Mixed hyperlipidemia, I10 - Essential (primary) hypertension, M81.0 - Age- related osteoporosis without current pathological fracture Urine Culture Today R30.0 - Dysuria Lipid Panel 07/05/25 E03.9 - Hypothyroidism, unspecified, E78.2 - Mixed hyperlipidemia, I10 - Essential (primary) hypertension, M81.0 - Age-related osteoporosis without current pathological fracture TSH reflex Free T4 07/05/25 E03.9 - Hypothyroidism, unspecified, E78.2 - Mixed hyperlipidemia, I10 - Essential (primary) hypertension, M81.0 - Age-related osteoporosis without current pathological fracture Medications: New 2 Fluarix [id number] (PF) (flu vac ts (6mos up)-PF) 0.5 mL IM ONCE 0.5 mL 0RF NS E03.9 - Hypothyroidism, unspecified, E78.2 - Mixed hyperlipidemia, I10 - Essential (primary) hypertension, M81.0 - Age-related osteoporosis without current pathological fracture, Z23 - Encounter for immunization Patient Instructions: Patient Instructions - You will provide a urine sample today before you leave. I will send you the results through the patient portal. - If your urine test shows signs of an infection, I will call in a prescription for antibiotics for you. - An order has been placed for an X-ray of your left hip and pelvis. Please go to the outpatient X-ray department in [place] to have this done. You can go as a walk-in. - You will receive your flu shot today. - For the tick bite, you can apply Vaseline or a drawing salve with a bandage to help remove any remaining parts of the tick.
[2025-04-15 08:45] VITALS: BP 144/80; PULSE 78; RESP 14; TEMP 36.4; O2SAT 99; BMI 35.5
--- OUTSIDE RECORDS SUMMARY | 2025-04-15 08:51 | XMS_ITS | Encounter Summary ---
Author Organization [facility] Address [address] [facility] [address] [place] [phone] Phone Care Team Providers Care Lead Setter Name Role Phone Ariana Mac AXLE BEARING POLISHER Primary Care Provider + Jessenia Willson AXLE BEARING POLISHER Primary Care Provider Encounter Details Date Type Department Care Team (Late st Contact Info) Description 06/21/2023 Procedure Pass Non-Invasive Cardiology [address] [place] [address] Social History Tobacco Use Types Packs/Day Years [...] Care Team (Late st Contact Info) Description 04/29/2025 9:40 AM EST Office Visit [facility] [address], [address] [place], [place] [phone] Joey Heredia MD [address] [place] [address] [email or web address] 09/07/2025 11:20 AM EDT Office Visit [facility] [address] [facility] 3rd Floor, [address] [place] [address] Artemio Soto MD, MS [address] [facility], [address] [place] [address] [email or web address] documented as of this encounter Visit Diagnoses Not on filedocumented in this encounter Care Teams Lead Setter Relationship Specialty Start Date End Date Ariana Mac NP [address] [place] [phone] PCP - General Nurse Practitioner 09/27/22 11/28/23 Jessenia Willson NP [address] [place] [phone] [email or web address] PCP - General Nurse Practitioner 11/29/23 documented as of this encounter Additional Source Comments The information contained in this document represents components of the legal health record. It is not the complete legal health record.[facility]
--- OUTSIDE RECORDS SUMMARY | 2025-04-15 08:51 | XMS_ITS | Encounter Summary ---
Author Organization [facility] Address [address] [facility] [address] [place] [phone] Phone Care Team Providers Care Sampling Expert Name Role Phone Ariana Mac PHYSICAL SCIENTIST Primary Care Provider + Jessenia Willson PHYSICAL SCIENTIST Primary Care Provider Encounter Details Date Type Department Care Team (Late st Contact Info) Description 02/26/2023 Procedure Pass Non-Invasive Cardiology [address] [place] [address] Social History Tobacco Use Types Packs/Day Years [...] Description 04/29/2025 9:40 AM EST Office Visit [facility] [address], [address] [place], [place] [phone] Joey Heredia MD [address] [place] [address] [email or web address] 09/07/2025 11:20 AM EDT Office Visit [facility] [address] [facility] 3rd Floor, [address] [place] [address] Artemio Soto MD, MS [address] [facility], [address] [place] [address] [email or web address] documented as of this encounter Visit Diagnoses Not on filedocumented in this encounter Care Teams Sampling Expert Relationship Specialty Start Date End Date Ariana Mac NP [address] [place] [phone] PCP - General Nurse Practitioner 09/27/22 11/28/23 Jessenia Willson NP [address] [place] [address] [email or web address] PCP - General Nurse Practitioner 11/29/23 documented as of this encounter Additional Source Comments The information contained in this document represents components of the legal health record. It is not the complete legal health record.[facility]
--- OUTSIDE RECORDS SUMMARY | 2025-04-15 08:51 | XMS_ITS | Encounter Summary ---
Author Organization [facility] Address [address] [facility] [address] [place] [phone] Phone Care Team Providers Care Supervisor Electronic Testing Name Role Phone Ariana Mac RETURN CHECKER Primary Care Provider + Jessenia Willson RETURN CHECKER Primary Care Provider Encounter Details Date Type Department Care Team (Late st Contact Info) Description 03/19/2023 Procedure Pass Non-Invasive Cardiology [address] [place] [address] Social History Tobacco Use Types Packs/Day Years [...] Description 04/29/2025 9:40 AM EST Office Visit [facility] [address], [address] [place], [place] [phone] Joey Heredia MD [address] [place] [address] [email or web address] 09/07/2025 11:20 AM EDT Office Visit [facility] [address] [facility] 3rd Floor, [address] [place] [address] Artemio Soto MD, MS [address] [facility], [address] [place] [address] [email or web address] documented as of this encounter Visit Diagnoses Not on filedocumented in this encounter Care Teams Supervisor Electronic Testing Relationship Specialty Start Date End Date Ariana Mac NP [address] [place] [phone] PCP - General Nurse Practitioner 09/27/22 11/28/23 Jessenia Willson NP [address] [place] [address] [email or web address] PCP - General Nurse Practitioner 11/29/23 documented as of this encounter Additional Source Comments The information contained in this document represents components of the legal health record. It is not the complete legal health record.[facility]
--- OUTSIDE RECORDS SUMMARY | 2025-04-15 08:51 | XMS_ITS | Encounter Summary ---
Author Organization [facility] Address [address] [place] [phone] Phone Care Team Providers Care Work Study Student Name Role Phone Ariana Mac COMMUNITY PLANNING TECHNICIAN Primary Care Provider + Jessenia Willson COMMUNITY PLANNING TECHNICIAN Primary Care Provider Encounter Details Date Type Department Care Team (Late st Contact Info) Description 10/10/2023 Procedure Pass Echo [facility] [place] [place] [address] Social History Tobacco Use Types Packs/Day Years [...] Description 04/29/2025 9:40 AM EST Office Visit [facility] [address] [place] [address], [address] [place], [place] [phone] Joey Heredia MD [address] [place] [address] [email or web address] 09/07/2025 11:20 AM EDT Office Visit [facility] [address] [facility] 3rd Floor, [address] [place] [address] Artemio Soto MD, MS [address] [facility], [address] [place] [address] [email or web address] documented as of this encounter Visit Diagnoses Not on filedocumented in this encounter Care Teams Work Study Student Relationship Specialty Start Date End Date Ariana Mac NP [address] [place] [phone] PCP - General Nurse Practitioner 09/27/22 11/28/23 Jessenia Willson NP [address] [place] [address] [email or web address] PCP - General Nurse Practitioner 11/29/23 documented as of this encounter Additional Source Comments The information contained in this document represents components of the legal health record. It is not the complete legal health record.[facility]
--- OUTSIDE RECORDS SUMMARY | 2025-04-15 08:51 | XMS_ITS | Clinical Summary ---
Author Organization [facility] Address [address] [place] [phone] Phone Care Team Providers Care Side Hemmer Name Role Phone Jessenia Willson CLINICAL DOCUMENTATION DEVELOPER Primary Care Provider Allergies Active Allergy Reactions Criticality Noted Date Comments Amoxicillin Rash Low 05/02/2022 Diazepam 05/02/2022 Lisinopril Cough 05/02/2022 Medications levothyroxine (SYNTHROID, LEVOTHROID) 100 MCG tablet Take 125 mcg by mouth daily. 2 Active cholecalciferol, vitamin D3, (VITAMIN D3) 100 mcg (4,000 unit) capsule 6 Active docusate sodium (COLACE) 100 MG capsule as needed. 0 Active vit A/vit C/vit E/zinc/copper (ICAPS AREDS ORAL) Take 1 capsule by mouth 2 (two) times a day. 8 Active furosemide (LASIX) 20 MG tabletIndication s:Chronic systolic heart failure take 1 tablet by mouth every day 90 tablet 3 4 Active Additional Information Patient taking differently:20 mg Oral Daily,Has been taking 40 for last 2 days, Reported on 03/04/2025 ENTRESTO 97-103 mg per tablet TAKE 1 TABLET BY MOUTH TWICE A DAY 180 tablet 3 5 Active ELIQUIS 5 mg tabletIndication s:Persistent atrial fibrillation Take 1 tablet (5 mg total) by mouth 2 (two) times a day. 180 tablet 3 5 Active bisoprolol (ZEBETA) 5 MG tablet Take 1 tablet (5 mg total) by mouth daily. 90 tablet 3 5 Active fluticasone-umec lidin-vilanter (TRELEGY ELLIPTA) 200-62.5-25 mcg inhaler Inhale 1 puff into the lungs daily. 3 each 3 5 Active acetaminophen (TYLENOL) 325 mg tablet Take 650 mg by mouth 2 (two) times a day (once in the morning and once in the afternoon). Active bisoprolol fumarate 2.5 mg Tab Take 2.5 mg by mouth every evening. Active amiodarone (PACERONE) 200 MG tabletIndication s:Persistent atrial fibrillation Take 1 tablet (200 mg total) by mouth daily. 90 tablet 3 5 Active levalbuterol (XOPENEX HFA) 45 mcg/actuation inhaler Inhale 2 puffs into the lungs every 4 (four) hours as needed for wheezing or shortness of breath/dyspnea. 15 g 11 5 Active Active Problems Problem Noted Date Diagnosed Date On amiodarone therapy 11/17/2024 Assessment & Plan (11/17/2024 11:52 AM EDT): Will get TSH, BMP, and LFT's prior to the pt's appt with her PCP on Sunday. Pt may need an adjustment to levothyroxine. We discussed routine testing for amiodarone toxicity. Pt follows up with Dr. Steen on 12/02/24 who can monitor her lung function. Pt will need PFT's or a chest xray at least once per year. Plan: TSH BMP LFTs Atrial flutter with rapid ventricular response 0 11/11/2024 Assessment & Plan (11/11/2024 4:21 PM EDT): Symptoms of shortness of breath on exertion, palpitations, chest tightness are likely attributed to her poorly controlled A-fib leading to RVR and CHF exacerbation. ACS considered though troponins flat and no acute ischemic changes on EKG. No signs of underlying infection currently. CHADS-VASc = 4 (4.8% risk of stroke per year) Congestive heart failure (1 point) Age > 75 (2 points) Female (1 point) Cardiology consulted in ED recommending loading with amiodarone, consider cardioversion tomorrow if no improvement. - Continue with amiodarone load -Continue bisoprolol with holding parameters -Continue with Eliquis -Cardiology consult appreciated -NPO after midnight in case of cardioversion COPD (chronic obstructive pulmonary disease) 03/2025 Assessment & Plan (01/21/2025 1:44 PM EDT): Complicates current dyspnea workup. She was treated with prednisone and antibiotics recently after she was diagnosed with the flu due to ongoing symptoms. She follows with Dr. Steen. She was also recently diagnosed with mild sleep apnea and was recommended CPAP which she plans to proceed with. Assessment & Plan (11/11/2024 4:21 PM EDT): History of COPD, currently without wheeze. Does not appear in exacerbation. -Continue with Trelegy Hypothyroidism 11/11/2024 Assessment & Plan (11/11/2024 4:21 PM EDT): - Continue levothyroxine -Follow-up TSH Sinus node dysfunction 10/29/2024 Assessment & Plan (01/21/2025 1:39 PM EDT): Bee interrogated her device in the office today and confirms no atrial fibrillation and normal device function. Please see full report for details. Assessment & Plan (11/17/2024 11:50 AM EDT): Cardiac pacemaker in situ. Assessment & Plan (10/29/2024 9:23 AM EDT): Cardiac pacemaker in situ. Positive cardiac stress test 06/07/2022 Chronic systolic heart failure 05/02/2022 Assessment & Plan (01/21/2025 1:43 PM EDT): She had a chest x-ray yesterday showing interstitial lung edema. She has no peripheral edema but describes dyspnea and cough that has been progressive over the past 1 month since 12/16 when she had flu. PCP increased to Lasix from 20 mg to 40 mg just yesterday and patient has already lost 4 pounds. We will continue 40 mg moving forward for at least the next 3 to 5 days. She will check a BMP/BNP on the way out today and will be advised the office of her weights and symptoms early next week at which time can consider further up titration or reduction back to maintenance of 20 mg. She does have some incontinence on Lasix but do believe she needs a higher dose. ED precautions reviewed. She has an echo next month scheduled. Assessment & Plan (11/11/2024 4:21 PM EDT): History of CHF with reduced EF, previously 25 to 30% EF though has improved to 40 to 45% as of 2023. She has elevated BNP, small bilateral pleural effusions. She has 2+ lower extremity edema and crackles on lung auscultation. She is currently not requiring oxygen. Appears to have exacerbation in her heart failure likely due to A-fib RVR. - Continue with 20 mg IV push Lasix once daily for now -Strict intake/outtake -Monitor daily weights -Continue with Entresto, bisoprolol with holding parameters -Defer to cardiology on [place], family interested adding this to regimen Otherwise would consider MRA, SGLT2 inhibitor -Cardiology appreciated Assessment & Plan (04/11/2023 12:37 PM EST): Patient's ejection fraction is 40 to 45%. Ventricular pacing burden is less than 1%. In view of low ventricular pacing burden no clear indication for lead upgrade. Once the device reaches PAULETTE will schedule for battery change. Assessment & Plan (05/02/2022 12:19 PM EST): Patient has history of chronic systolic heart failure for at least 2 years she has been on furosemide 20 mg daily she does not have any evidence of volume overload today I prefer that she continues furosemide 20 mg daily until I get more data on her I will order a BNP and electrolytes BUN/creatinine Will do not know the real reason for her's chronic systolic failure it could be dilated cardiomyopathy but she never had cardiac catheterization for or angiogram done so I will also request a stress test which she agrees to be done with Megha Dilated cardiomyopathy 05/02/2022 Assessment & Plan (01/21/2025 1:40 PM EDT): Patient is scheduled for a repeat echocardiogram 02/2025. Assessment & Plan (11/17/2024 11:48 AM EDT): History of reduced EF of 25 to 30%. EF improved to 40 to 45% with GDMT. Patient is currently on bisoprolol, high-dose Entresto, and furosemide. Patient is tolerating her medications well. Patient to continue current medications. Plan: Continue bisoprolol Continue Entresto Continue furosemide Assessment & Plan (10/29/2024 9:27 AM EDT): History of reduced EF of 25 to 30%. EF improved to 40 to 45% with GDMT. Patient is currently on bisoprolol, high-dose Entresto, and furosemide. Patient is tolerating her medications well. Patient is currently having atrial fibrillation with intermittent RVR. Will schedule a cardioversion to return her to normal sinus rhythm. Patient to continue current medications. Plan: Continue bisoprolol Continue Entresto Continue furosemide Assessment & Plan (05/02/2022 12:20 PM EST): She has cardiomyopathy and was called could dilated from her previous infant caregiver. We will repeat an echocardiogram and do a stress test to make sure she does not have ischemic cardiomyopathy. One of the cardiology G notes states that they were considering upgrading her pacemaker to a SILVER CHASER-D because her PA EF has not improved we will see where she stands now with a new echocardiogram he does have left bundle branch block her QRS is 140 ms so she will qualify for SILVER CHASER-D Persistent atrial fibrillation 05/02/2022 Assessment & Plan (01/21/2025 1:40 PM EDT): She remains adequately anticoagulated on Eliquis 5 mg twice daily. Recent months she was started on amiodarone which she is taking and device interrogation confirms no A-fib. She is rate controlled with bisoprolol. Continue meds and doses. Assessment & Plan (11/17/2024 11:50 AM EDT): Patient has historically been paroxysmal. Patient started having persistent atrial fibrillation with dyspnea, fatigue, chest tightness, and lightheadedness. Patient reports symptoms with minimal exertion. She presents today in atrial fibrillation. Patient is currently on Eliquis for CVA prophylaxis and denies any missed doses. She is on bisoprolol for rate control. Patient went to [facility] last week where all they did was rate control and did not perform a cardioversion. She underwent another cardioversion which only held for about 4 days. She was hospitalized with symptomatic AF. She was placed on amiodarone and has felt well since. No recurrence noted on device. Will continue amiodarone. We discussed the possibility of liver, lung, thyroid, and eye dysfunction and routine surveillance for these issues. Plan: Continue Eliquis Continue bisoprolol Continue amiodarone Follow-up as scheduled Assessment & Plan (10/29/2024 9:26 AM EDT): Patient has historically been paroxysmal. Patient started having persistent atrial fibrillation a few weeks ago with dyspnea, fatigue, chest tightness, and lightheadedness. Patient reports symptoms with minimal exertion. She presents today in atrial fibrillation. Patient is currently on Eliquis for CVA prophylaxis and denies any missed doses. She is on bisoprolol for rate control. Patient went to [facility] last week where all they did was rate control and did not perform a cardioversion. We discussed undergoing a cardioversion to get her back in a normal rhythm. Patient's pacemaker interrogation shows minimal burden prior to the last few weeks. We discussed the risks of the cardioversion including stroke, skin injury, and inability to return to normal sinus rhythm. Patient and family verbalized understanding of this information. Plan: Continue Eliquis Continue bisoprolol Schedule cardioversion with a follow-up with in Follow-up in [address] Heredia Pacemaker 05/02/2022 Assessment & Plan (10/29/2024 9:31 AM EDT): Device interrogated today. Unable to test atrial threshold due to atrial fibrillation. Battery life at 11.9 years. RA sensing stable. RV sensing and pacing stable. Patient has been in atrial fibrillation since around October 14. Patient previously had a low burden of A-fib. AP 85.8% and PLANT GUARD 0.7%. No parameter changes. Plan: In office device check after cardioversion Continue remote checks Assessment & Plan (04/11/2023 12:38 PM EST): Patient's device is not at PAULETTE yet. There is no automatic remote monitoring available for the patient's device. We will schedule remote check every 2 weeks. Ventricular threshold was noted to be 0.75 V at 1 ms. No clear evidence of lead upgrade at this point. Ventricular pacing less than 1% at this point. This is not likely contributing to patient's cardiomyopathy. Patient was instructed to stop Eliquis 48 hours before the procedure Assessment & Plan (05/02/2022 12:21 PM EST): She currently has a [employer] Adapta ADD DR 012 dual-chamber pacemaker implanted in 2011 we will do the interrogation today Paroxysmal atrial fibrillation 05/02/2022 Assessment & Plan (05/02/2022 12:24 PM EST): Patient has history of paroxysmal atrial fibrillation today she is in sinus rhythm with left bundle branch block pattern she is on risks for anticoagulation and she is on bisoprolol for rate control has no bleeding complications Encounters Date Type Department Care Team Description 03/04/2025 1:45 PM EDT Office Visit [facility] [address] [place] [address] 3rd Floor, [address] [place] [address] Brandin Steen MD VERNON (obstructive sleep apnea) (Primary Dx); Atrial fibrillation with rapid ventricular response; Moderate persistent asthma without complication 02/23/2025 9:34 AM EDT - 02/23/2025 11:59 PM EDT Hospital Encounter Echo Lab [address] [place] [address] Christo Crowley MD Discharge Disposition: Home or Self Care 01/21/2025 1:39 PM EDT - 01/21/2025 11:59 PM EDT Hospital Encounter [facility] [address] [place] [address] Annabelle Villavicencio, PAMiguel Discharge Disposition: Home or Self Care 01/21/2025 1:00 PM EDT - 01/21/2025 1:38 PM EDT Hospital Encounter Non-Invasive Cardiology [address] [place] [address] [place] [address] Annabelle Villavicencio PA-C Discharge Disposition: Home or Self Care 01/21/2025 1:00 PM EDT Office Visit [facility] [address] [place] [address] [address]rd Floor, [address] [place] [address] Annabelle Villavicencio PA-C Acute on chronic congestive heart failure, unspecified heart failure type (Primary Dx); Congestive heart failure, unspecified HF chronicity, unspecified heart failure type; Sinus node dysfunction; Persistent atrial fibrillation; Dilated cardiomyopathy; Chronic systolic heart failure 01/21/2025 Procedure Pass Non-Invasive Cardiology [address] [place] [address] 01/21/2025 Orders Only [facility] [address], [address] [place] [address] Annabelle Villavicencio PA-C Pacemaker (Primary Dx) 01/20/2025 Telephone [facility] [address], [address] [place] [address] Joey Heredia MD 07/24/2024 Procedure Pass Echo Lab [address] [place] [address] from Last 3 Months Social History Tobacco Use Types Packs/Day Years Used Date Smoking Tobacco: Former Cigarettes Q uit: 2010 Smokeless Tobacco: Never Tobacco Cessation:Counseling Given: Not Answered Alcohol Use Standard Drinks/Week Comments Not Currently [...] your housing situation today? I have jamal johnston 11/11/2024 How many times have you move [...] on file Sexual Orientation Not on file Last Filed Vital Signs Vital Sign Reading Time Taken Comments Blood Pressure 100/60 03/04/2025 1:22 PM EDT Pulse 84 03/04/2025 1:22 PM EDT Temperature 36.9 C (98.5 F) 11/12/2024 12:03 PM EDT Respiratory Rate 18 11/12/2024 12:03 PM EDT Oxygen Saturation 96% 03/04/2025 1:22 PM EDT Inhaled Oxygen Concentration - - Weight 82.1 kg (181 lb) 03/04/2025 1:22 PM EDT Height 152.4 cm (5') 03/04/2025 1:22 PM EDT Body Mass Index 35.35 03/04/2025 1:22 PM EDT Plan of Treatment Upcoming Encounters Date Type Department Care Team (Late st Contact Info) Description 04/29/2025 9:40 AM EST Office Visit [facility] [address], [address] [place] [address] Jeoy Heredia MD [address] [place] [phone] 09/07/2025 11:20 AM EDT Office Visit [facility] [address], [address] [place] [address] Artemio Soto MD, MS [address] [facility], [address] [place] [phone] [email or web address] Health Maintenance Due Date Last Done Comments DEPRESSION SCREENING 1950 OSTEOPOROSIS SCREENING INITIAL (ONE-TIME) 2003 INFLUENZA VACCINE (#1) 2025 , 03/06/2022, 02/22/2021, Additional history exists COVID-19 VACCINE ( season) 2025 02/01/2024, 03/14/2023, 03/29/2022, Additional history exists ALT LEVEL (ALANINE AMINOTRANSFERASE) 11/17/2025 11/17/2024 CREATININE LEVEL 11/17/2025 11/17/2024, 04/2025, 11/11/2024, Additional history exists TSH LEVEL 11/17/2025 11/17/2024, 11/12/2024 Adult Td,Tdap Booster 01/31/2034 02/01/2024 ZOSTER VACCINES Completed 05/13/2021, 03/02/2021 RSV VACCINE Completed 04/23/2023 PNEUMOCOCCAL VACCINES (50+ years) Completed 12/07/2023 HEPATITIS A VACCINES Aged Out No long er eligible based on patient's age to complete this topic HIB VACCINES Aged Out No longer eligi ble based on patient's age to complete this topic IPV VACCINES Aged Out No longer eligi ble based on patient's age to complete this topic MENINGOCOCCAL VACCINES (ACWY) Aged Out No longer eligible based on patient's age to complete this topic MENINGOCOCCAL VACCINES (B) Aged Out N o longer eligible based on patient's age to complete this topic Medical Devices Not on file Procedures Procedure Name Priority Date/Time Associated Diagnosis Comments TTE COMPREHENSIVE Routine 02/23/2025 10: 42 AM EDT Dilated cardiomyopathy NT-PROBNP Routine 01/21/2025 1:46 PM EDT Congestive heart failure, unspecified HF chronicity, unspecified heart failure type DEVICE CHECK: PPM IN-PERSON PROGRAMMING DUAL LEAD Routine 01/21/2025 1:43 PM EDT Pacemaker TSH WITH REFLEX Routine 11/17/2024 11:24 AM EDT On amiodarone therapy BASIC METABOLIC PANEL (BMP) Routine 11/17/2024 11:24 AM EDT On amiodarone therapy LFTS (HEPATIC PANEL) Routine 11/17/2024 11:24 AM EDT On amiodarone therapy from Last 3 Months or Most Recently Relevant to Health Maintenance Results * (ABNORMAL) TTE COMPREHENSIVE (02/23/2025 10:42 AM EDT) Body Surface Area 1.79 m2 Height 152 cm Weight 83 kg Interventricular Septum Thickness 11 6 - 11 mm Left Ventricle Internal Diameter End Diastole 50 37 - 52 mm Left Ventricle Internal Diameter End Systole 39 <35 mm Left Ventricular Outflow Tract Diameter 20.0 mm Left Ventricular Posterior Wall Thickness 11 6 - 11 mm Left Ventricle Ea Lateral Wave Speed 7.5(A) cm/s Left Ventricle Ea Septal Wave Speed 4.0(A) cm/s Ejection Fraction 51 50 - 75 Percent Left Atrium Dimension Anterior-Posterior 39 15 - 40 mm Aortic Valve Regurgitation Pressure Half Time 582 ms Aortic Valve Peak Velocity 1.5 m/s Aortic Valve Peak Gradient 9 mmHg Aortic Valve Mean Gradient 5 mmHg Aortic Valve Time Velocity Integral 351.0 mm Aortic Arch Diameter 22 mm Aortic Sinus Diameter 29 <40 mm Ascending Aorta Diameter 30 <36 mm Inferior Vena Cava Diameter 12 <21 mm Mitral Valve Deceleration Time 155 ms Left Ventricle A Wave Speed 46.7 cm/s Left Ventricle E Wave Speed 92.0 cm/s Pulmonary Artery End Diastolic Velocity 1.0 m/s Pulmonary Valve Peak Velocity 1.0 m/s Pulmonary Valve Peak Gradient 4 mmHg Right Ventricle Basal Diameter 30 25 - 41 mm Tricuspid Valve Peak Velocity 2.5 m/s Raw LV EF% 39 % MV E/E' Tissue Velocity Lateral 12.27 Relative Wall Thickness 0.44 0.22 - 0.42 Left Ventricle indexed to BSA 115.7 g/m2 MV E/A ratio 2.0(A) MV E/e' septal 23.00 Left Ventricle E/e' Average 17.6(A) Aortic Valve Prosthetic Peak Gradient 9 mmHg Aortic Valve Prosthetic Mean Gradient 5 mmHg Aortic Valve Sinus Index by BSA 16 mm/m2 Aorta Sinus Index by Height 1.91 cm/m Aorta Sinus CSA index by Height 4.34 cm2/m Ascending Aorta Index 17 mm/m2 Asc Aorta CSA Index by Height 4.65 cm2/m Right Ventricle to Right Atrium Pressure Gradient 25 mmHg Right Ventricle Peak Systolic Pressure (Assuming RAP 10) 35 mmHg MGB CV ECHO TV RVSP (ASSUMING RAP OF 5) 30 mmHg RVSP (Exclusive of RAP) 25 mmHg Pulmonic Valve Prosthetic Peak Gradient 4 mmHg Ascending Aorta Index 17 mm Aortic Sinus Index 16 mm Ascending Aorta Diameter 17 mm Aortic Valve Sinus Index 1 16 19 - 27 mm AO ASC DIAM BSA INDEX 16.76 Echo E/Ea 23.00 Left Atrial Volume Index 51 16 - 34 mL/m2 Right Ventricle Peak Systolic Pressure 28 mmHg Right Ventricle TAPSE 17 >=17 mm Right Ventricle Pulse Doppler S Wave 8.2 >=9.5 cm/s Left Atrial Volume 91 mL Left Atrial Volume Index by Height 60 mL/m Right Atrium Area 12 cm2 Right Atrium Area index 7 cm2/m2 Right Atrium Pressure Estimated 3 mmHg Pulmonary Artery End Diastolic Pressure 7 mmHg Anatomical Region Laterality Modality Heart Ultrasound Narrative 02/23/2025 11:29 AM EDT Images from the original result were not included. 1. Cardiomyopathy is the indication for the study. I would estimate by visual inspection that the EF is 40 to 45%. There is abnormal septal contraction pattern with a wide complex QRS. There is mild concentric LVH there were no regional wall motion abnormalities and diastolic function was indeterminate. 2. Normal RV size and function there is a pacing catheter evident in the right heart. 3. Trileaflet aortic valve there is mild to moderate aortic regurgitation there is no evidence of aortic stenosis the pressure half-time is 582 ms. The ascending aortic root is normal size. 4. Mild to moderate mitral regurgitation and moderate tricuspid insufficiency, the PA pressure is normal. 5. Normal pericardium when compared to the prior echo done in November 2023, there is no significant change. Left Ventricle The left ventricle is normal in size. There is mild concentric hypertrophy. There is mildly reduced left ventricular systolic function. The LV ejection fraction is 40-45%. LV diastolic function parameters are indeterminate in total. The E wave velocity is 92.0 cm/s. The A wave velocity is 46.7 cm/s. The E/A ratio is 2.0. The e' septal wave velocity is 4.0 cm/s. The e' lateral wave velocity is 7.5 cm/s. The average E/e' ratio is 17.6. Right Ventricle The right ventricle is normal in size. There is a lead (ICD/pacer) present in the right ventricle. There is normal right ventricular systolic function. TAPSE is 17 mm (normal: >= 17 mm). RV S' wave is 8.2 cm/s (normal: >= 9.5 cm/s). Left Atrium The left atrium is severely dilated. The left atrial volume index by BSA is 51 mL/m2. Right Atrium The right atrium is normal in size. There is a lead (ICD/pacer) present in the right atrium. The IVC is normal in size. Mitral Valve There is thickening of the anterior mitral leaflet. There is no mitral stenosis. There is mild to moderate mitral regurgitation. Tricuspid Valve The tricuspid valve appears normal. There is no tricuspid stenosis. There is moderate tricuspid regurgitation. The RV systolic pressure was calculated at 28 mmHg (using TR peak velocity of 2.5 m/s and assuming an RA pressure of 3 mmHg). Aortic Valve The aortic valve is tricuspid. There is leaflet thickening without stenosis. There is no aortic stenosis. There is mild to moderate aortic regurgitation. The regurgitation pressure half time is 582 ms. The aortic sinuses are normal in size. The ascending aorta is normal in size. Pulmonic Valve The pulmonic valve appears normal. There is no pulmonic stenosis. There is trace pulmonic regurgitation. Pericardium There is no pericardial effusion. General Findings The image quality was fair (3). Technique(s) used in the evaluation: Color flow Doppler and Spectral Doppler. The predominant rhythm during the study was a paced rhythm. Comparison Findings Compared to prior TTE on 11/29/2023, IAS/IVS The interatrial septum appears thickened consistent with lipomatous hypertrophy (normal variant). There is no evidence of patent foramen ovale (PFO). Christo Crowley MD CV ECHO ORDERABLES Final Result * (ABNORMAL) NT-proBNP (01/21/2025 1:46 PM EDT) NT-PROBNP 1,045(H) 0 - 450 pg/mL [facility] Blood 01/21/2025 1:46 PM EDT 01/21/2025 1:50 PM EDT Annabelle Villavicencio PA-C LAB BLOOD BKR ORDERABLES Fin al Result Performing Organization Address City/State/[facility] Co de Phone Number [address] [phone] * DEVICE CHECK: PPM IN-PERSON PROGRAMMING DUAL LEAD (01/21/2025 1:43 PM EDT) Narrative Chuy Torres DO - 01/21/2025 3:03 PM EDT Table formatting from the original result was not included. Reason for appointment: In-office pacemaker interrogation HPI: Routine in-office pacemaker interrogation, during visit w/Annabelle for s/o SOB, using iterative adjustment to test the function of the device and select optimal permanent programmed values. No device related complaints. Indication for device: SSS Examination: Device type: Pacemaker Membership Solicitor: Medtr[employer] Mode: AAIR-DDDR LRL/URL: 60/130 bpm Thresholds, impedances, and sensing stable. High V rates: 0 Mode switches: 0 AF/AT: Patient is currently taking Eliquis daily. Atrial pacin.3% Ventricular pacin.1% Battery: 11.8 yrs RA RV LV Sensing 1.5mV 10.9mV Threshold 1V@.4ms .75V@.4ms Impedance 475 ohms 589 ohms Additional comments or changes: normal pacemaker function and stable pacing and sensing thresholds Patient will return for in-office device check in: 12 months Report prepared by Modesto Fonseca RN Procedure Note Chuy Torres, DO - 01/21/2025 Reason for appointment: In-office pacemaker interrogation HPI: Routine in-office pacemaker interrogation, during visit w/Annabelle fors/o SOB, using iterative adjustment to test the function of the device andselect optimal permanent programmed values. No device related complaints. Indication for device: SSS Examination: Device type: Pacemaker Membership Solicitor: [employer] Mode: AAIR-DDDR LRL/URL: 60/130 bpm Thresholds, impedances, and sensing stable. High V rates: 0 Mode switches: 0 AF/AT: Patient is currently taking Eliquis daily. Atrial pacin.3% Ventricular pacin.1% Battery: 11.8 yrs RA RV LV Sensing 1.5mV 10.9mV Threshold 1V@.4ms .75V@.4ms Impedance 475 ohms 589 ohms Additional comments or changes: normal pacemaker function and stablepacing and sensing thresholds Patient will return for in-office device check in: 12 months Report prepared by Modesto Fonseca RN Annabelle Villavicencio PA-C [facility] CARDIAC SERVICES ORDERABL ES Final Result * (ABNORMAL) TSH with reflex (11/17/2024 11:24 AM EDT) [facility] TSH 8.46(H) 0.27 - 4.20 uIU/mL [facility] Blood 11/17/2024 11:2 4 AM EDT 11/17/2024 11:28 AM EDT Ragini Sung DNP LAB BLOOD BKR ORDERABLES Final R esult [address] [address] * LFTs (hepatic panel) (11/17/2024 11:24 AM EDT) Pathologist [facility] ALKALINE PHOSPHATASE 79 39 - 117 U/L [facility] TOTAL BILIRUBIN 0.5 0.0 - 1.2 mg/dL [facility] DIRECT BILIRUBIN 0.2 0.0 - 0.2 mg/dL [facility] Bilirubin (Indirect) 0.3 0 - 1.5 mg/dL [facility] AST 19 0 - 37 U/L [facility] ALT 20 0 - 40 U/L [facility] TOTAL PROTEIN 7.1 6.5 - 8.0 g/dL [facility] ALBUMIN 4.2 3.9 - 4.8 g/dL [facility] GLOBULIN 2.9 1 - 4.8 g/dL [facility] A/G Ratio 1.45 1.00 - 4.80 RATIO [facility] Blood 11/17/2024 11:2 4 AM EDT 11/17/2024 11:28 AM EDT us Ragini Sung DNP LAB BLOOD BKR ORDERABLES Final R esult [address] [address] * (ABNORMAL) Basic metabolic panel (11/17/2024 11:24 AM EDT) [facility] SODIUM 141 133 - 146 mmol/L [facility] CHLORIDE 102 96 - 108 mmol/L [facility] POTASSIUM 4.9 3.3 - 5.1 mmol/L [facility] CO2 27 21 - 35 mmol/L [facility] BUN 29(H) 6 - 19 mg/dL [facility] CREATININE 1.00 0.5 - 1.5 mg/dL [facility] GLUCOSE 98 70 - 99 mg/dL [facility] CALCIUM 9.9 8.4 - 10.3 mg/dL [facility] EGFR 55(L) >59 mL/min/1.7 3m2 [facility] Comment:Estimated glomerular filtration rate calculated using the CKD-EPI refit equation. ANION GAP 17 10 - 20 mmol/L [facility] Blood 11/17/2024 11:2 4 AM EDT 11/17/2024 11:28 AM EDT us Ragini Sung DNP LAB BLOOD BKR ORDERABLES Final R esult [address] [address] from Last 3 Months or Most Recently Relevant to Health Maintenance Insurance [employer] Advance Directives For more information, please contact: [phone] (9AM - 5PM [place], Sunday-Sunday) Documents on File Type Date Recorded Patient Correspondent Expl anation Healthcare Proxy 11/13/2024 12:16 PM * Full Code (Latest Code Status on File) Date Activated Date Inactivated Comments 11/11/2024 4:02 PM Question Answer Comments Code Status Confirmed With: PatientFamily Code Status Communicated To: Inpatient Attending Care Teams Side Hemmer Relationship Specialty Start Date End Date Jessenia Willson NP [address] [place] [address] [email or web address] PCP - General Nurse Practitioner 11/29/23 Additional Source Comments The information contained in this document represents components of the legal health record. It is not the complete legal health record.[facility]
--- OUTSIDE RECORDS SUMMARY | 2025-04-15 08:51 | XMS_ITS | Encounter Summary ---
Author Organization [facility] Address [address] [facility] [address] [place] [address] Phone Care Team Providers Care Plastic Printer Name Role Phone Pcp, Unknown Primary Care Provider Zac Mclean MD Primary Care Provide r Ariana Mac ANIMAL ASSISTED THERAPIST Primary Care Provider + Jessenia Willson ANIMAL ASSISTED THERAPIST Primary Care Provider Encounter Details Date Type Department Care Team (Late st Contact Info) Description 05/02/2022 Procedure Pass Non-Invasive Cardiology [address] [place], [place] [id number] Social History Tobacco Use Types Packs/Day Years Used Date Smoking Tobacco: Former Cigarettes Q uit: 2010 Smokeless Tobacco: Never Alcohol Use Standard Drinks/Week Comments Not Currently 0 (1 standard drink = 0.6 oz pur e alcohol) Comments Unknown Sex and Gender Information Value Date Recorded Sex Assigned at Not on file Legal Sex Female 9:51 AM EDT Gender Identity Not on file Sexual Orientation Not on file documented as of this encounter Plan of Treatment Upcoming Encounters Date Type Department Care Team (Late st Contact Info) Description 04/29/2025 9:40 AM EST Office Visit [facility] [address] Floor, [address] [place] [address] Joey Heredia MD [address] [place] [address] 09/07/2025 11:20 AM EDT Office Visit [facility] [address], [address] [place] [address] Artemio Soto MD, MS [address] [facility], [address] [place] [address] [email or web address] documented as of this encounter Visit Diagnoses Not on filedocumented in this encounter Care Teams Plastic Printer Relationship Specialty Start Date End Date Pcp, Unknown PCP - General 03/15/22 05/25/22 Zac Neff MD [address] [place] [address] PCP - General Internal Medicine 05/26/22 09/26/22 Ariana Mac NP [address] [place] [address] PCP - General Nurse Practitioner 09/27/22 11/28/23 Jessenia Willson NP [address] [place] [address] [email or web address] PCP - General Nurse Practitioner 11/29/23 documented as of this encounter Additional Source Comments The information contained in this document represents components of the legal health record. It is not the complete legal health record.[facility]
--- OUTSIDE RECORDS SUMMARY | 2025-04-15 08:51 | XMS_ITS | Encounter Summary ---
Author Organization [facility] Address [facility] [employer] [facility] [address] [place] [address] Phone Care Team Providers Care Workers Compensation Specialist Name Role Phone Pcp, Unknown Primary Care Provider aZc Mclean MD Primary Care Provide r Ariana Mac MANAGER CLIENT SUPPORT Primary Care Provider + Jessenia Willson MANAGER CLIENT SUPPORT Primary Care Provider Encounter Details Date Type Department Care Team (Late st Contact Info) Description 05/02/2022 Procedure Pass [facility] [place] [address] Social History Tobacco Use Types Packs/Day Years Used Date Smoking Tobacco: Former Cigarettes Smokeless Tobacco: Never Comments Unknown Sex and Gender Information Value Date Recorded Sex Assigned at Not on file Legal Sex Female 9:51 AM EDT Gender Identity Not on file Sexual Orientation Not on file documented as of this encounter Plan of Treatment Upcoming Encounters Date Type Department Care Team (Late st Contact Info) Description 04/29/2025 9:40 AM EST Office Visit [facility] [address], [address] [place] [address] Joey Heredia MD [address] [place] [address] 09/07/2025 11:20 AM EDT Office Visit [facility] [address], [address] [place], [place] [phone] Artemio Soto MD, MS [address] [facility], [address] [place] [address] [email or web address] documented as of this encounter Visit Diagnoses Not on filedocumented in this encounter Care Teams Workers Compensation Specialist Relationship Specialty Start Date End Date Pcp, Unknown PCP - General 03/15/22 05/25/22 Zac Neff MD [address] [place] [address] PCP - General Internal Medicine 05/26/22 09/26/22 Ariana Mac NP [address] [place] [address] PCP - General Nurse Practitioner 09/27/22 11/28/23 Jessenia Willson NP [address] [place] [address] [email or web address] PCP - General Nurse Practitioner 11/29/23 documented as of this encounter Additional Source Comments The information contained in this document represents components of the legal health record. It is not the complete legal health record.[facility]
--- OUTSIDE RECORDS SUMMARY | 2025-04-15 08:51 | XMS_ITS | Encounter Summary ---
Author Organization [facility] Address [address] [place] [address] Phone Care Team Providers Care Training Designer Name Role Phone Jessenia Willson MENTAL HEALTH COORDINATOR Primary Care Provider Encounter Details Date Type Department Care Team (Late st Contact Info) Description 07/24/2024 Procedure Pass Echo [facility] [address] [place] [address] Social History Tobacco Use Types [...] Description 04/29/2025 9:40 AM EST Office Visit [facility] [address], [address] [place] [address] Joey Heredia MD [address] [place] [address] 09/07/2025 11:20 AM EDT Office Visit [facility] [address] [place] [address] [address]rd Floor, [address] [place] [address] Arteimo Soto MD, MS [address] [facility], [address] [place] [address] documented as of this encounter Visit Diagnoses Not on filedocumented in this encounter Care Teams Training Designer Relationship Specialty Start Date End Date Jessenia Willson NP [address] [place] [address] [email or web address] PCP - General Nurse Practitioner 11/29/23 documented as of this encounter Additional Source Comments The information contained in this document represents components of the legal health record. It is not the complete legal health record.[facility]
--- OUTSIDE RECORDS SUMMARY | 2025-04-15 08:51 | XMS_ITS | Encounter Summary ---
Author Organization [facility] Address [address] [facility] [address] [place] [address] Phone Care Team Providers Care Kettle Operator Head Name Role Phone Ariana Mac HAT MODEL Primary Care Provider + Jessenia Willson HAT MODEL Primary Care Provider Encounter Details Date Type Department Care Team (Late st Contact Info) Description 10/10/2023 Procedure Pass Non-Invasive Cardiology [address] [place] [address] Social History Tobacco Use Types Packs/Day Years [...] Description 04/29/2025 9:40 AM EST Office Visit [facility] [address], [address] [place], [place] [phone] Joey Heredia MD [address] [place] [address] [email or web address] 09/07/2025 11:20 AM EDT Office Visit [facility] [address] [facility] 3rd Floor, [address] [place] [address] Artemio Soto MD, MS 22 [facility], [address] [place] [address] [email or web address] documented as of this encounter Visit Diagnoses Not on filedocumented in this encounter Care Teams Kettle Operator Head Relationship Specialty Start Date End Date Ariana Mac NP [address] [place] [address] PCP - General Nurse Practitioner 09/27/22 11/28/23 Jessenia Willson NP [address] [place] [address] [email or web address] PCP - General Nurse Practitioner 11/29/23 documented as of this encounter Additional Source Comments The information contained in this document represents components of the legal health record. It is not the complete legal health record.[facility]
--- OUTSIDE RECORDS SUMMARY | 2025-04-15 08:51 | XMS_ITS | Encounter Summary ---
Author Organization [facility] Address [address] [place] [address] Phone Care Team Providers Care Landcare Facilitator Name Role Phone Jessenia Willson MACHINE CONTAINER WASHER Primary Care Provider Encounter Details Date Type Department Care Team (Late st Contact Info) Description 01/21/2025 Procedure Pass Non-Invasive Cardiology [address] [place] [address] Social History Tobacco Use Types Packs/Day Years [...] Description 04/29/2025 9:40 AM EST Office Visit [facility] [address] [place] [address], [address] [address] Joey Heredia MD [address] [place] [address] 09/07/2025 11:20 AM EDT Office Visit [facility] [address] 3rd [facility], [address] [place] [address] Artemio Soto MD, MS 22 [facility], [address] [address] documented as of this encounter Visit Diagnoses Not on filedocumented in this encounter Care Teams Landcare Facilitator Relationship Specialty Start Date End Date Jessenia Willson NP [address] [place] [address] [email or web address] PCP - General Nurse Practitioner 11/29/23 documented as of this encounter Additional Source Comments The information contained in this document represents components of the legal health record. It is not the complete legal health record.[facility]
--- OUTSIDE RECORDS SUMMARY | 2025-04-15 08:51 | XMS_ITS | Encounter Summary ---
Author Organization [facility] Address [address] [facility] [address] [place] [address] Phone Care Team Providers Care Commercial Portfolio Manager Name Role Phone Jessenia Willson EDUCATIONAL FUNDRAISING DIRECTOR Primary Care Provider Encounter Details Date Type Department Care Team (Late st Contact Info) Description 11/12/2024 Procedure Pass [facility] [address] [place] [address] Social History Tobacco Use Types Packs/Day Years [...] Description 04/29/2025 9:40 AM EST Office Visit [facility] [address] [place] [address] [address] [facility], [address] [place] [address] Joey Heredia MD [address] [place] [address] 09/07/2025 11:20 AM EDT Office Visit [facility] [address] [place] [address] [address]rd [facility], [address] [place] [address] Artemio Soto MD, MS 22 [facility], [address] [address] documented as of this encounter Visit Diagnoses Not on filedocumented in this encounter Care Teams Commercial Portfolio Manager Relationship Specialty Start Date End Date Jessenia Willson NP [address] [place] [address] [email or web address] PCP - General Nurse Practitioner 11/29/23 documented as of this encounter Additional Source Comments The information contained in this document represents components of the legal health record. It is not the complete legal health record.[facility]
--- OUTSIDE RECORDS SUMMARY | 2025-04-15 08:51 | XMS_ITS | Encounter Summary ---
Author Organization [facility] Address [address] [place] [address] Phone Care Team Providers Care Tennis Net Maker Name Role Phone Jessenia Willson DIRECTOR ELECTRICAL ENGINEERING Primary Care Provider Encounter Details Date Type Department Care Team (Late Contact Info) Description 10/30/2024 Procedure Pass [facility] [address] [place] [address] Social History Tobacco Use Types Packs/Day Years [...] Encounters Date Type Department Care Team (Late Contact Info) Description 04/29/2025 9:40 AM EST Office Visit [facility] [address] [facility] 3rd Floor, [address] [place] [address] Joey Heredia MD [address] [place] [address] 09/07/2025 11:20 AM EDT Office Visit [facility] [address] [place] [address] [address]rd Floor, [address] [place] [address] Artemio Soto MD, MS [address] [facility], [address] [place] [address] [email or web address] documented as of this encounter Visit Diagnoses Not on filedocumented in this encounter Care Teams Tennis Net Maker Relationship Specialty Start Date End Date Jessenia Willson NP [address] [place] [address] [email or web address] PCP - General Nurse Practitioner 11/29/23 documented as of this encounter Additional Source Comments The information contained in this document represents components of the legal health record. It is not the complete legal health record.[facility]
--- OUTSIDE RECORDS SUMMARY | 2025-04-15 08:51 | XMS_ITS | Encounter Summary ---
Author Organization [facility] Address [address] [facility] [facility] [address] [place] [address] Phone Care Team Providers Care Carbon Printer Name Role Phone Ariana Mac CERTIFIED NURSE PRACTITIONER Primary Care Provider + Jessenia Willson CERTIFIED NURSE PRACTITIONER Primary Care Provider Encounter Details Date Type Department Care Team (Late st Contact Info) Description 01/12/2023 Procedure Pass Non-Invasive Cardiology [address] [place] [address] Social History Tobacco Use Types Packs/Day Years [...] Description 04/29/2025 9:40 AM EST Office Visit [facility] [address], [address] [place], [place] [phone] Joey Heredia MD [address] [place] [address] [email or web address] 09/07/2025 11:20 AM EDT Office Visit [facility] [address] [facility] 3rd Floor, [address] [place] [address] Artemio Soto MD, MS [address] [facility], [address] [place] [address] [email or web address] documented as of this encounter Visit Diagnoses Not on filedocumented in this encounter Care Teams Carbon Printer Relationship Specialty Start Date End Date Ariana Mac NP [address] [place] [address] PCP - General Nurse Practitioner 09/27/22 11/28/23 Jessenia Willson NP [address] [place] [address] [email or web address] PCP - General Nurse Practitioner 11/29/23 documented as of this encounter Additional Source Comments The information contained in this document represents components of the legal health record. It is not the complete legal health record.[facility]
== END 2025-04-15 09:19 | disposition home or self-care (01) ==
LOC: HO.HMCFM 08:34
PROVIDERS: PCP Nurse Practitioner Family; Visit Provider Nurse Practitioner Family
DX: Z23 Encounter for immunization (principal); I10 Essential (primary) hypertension; E03.9 Hypothyroidism, unspecified; M81.0 Age-related osteoporosis without current pathological fracture; E78.2 Mixed hyperlipidemia; R30.0 Dysuria; M25.552 Pain in left hip

== ENCOUNTER 2025-04-15 08:33 | Outpatient (REF) | payer MEDICARE, SELFPAY ==
--- NOTE | ~2025-04-15 | XR_ITS ---
EXAMINATION: XR HIP, LEFT CLINICAL INFORMATION: M25.552 - Pain in left hip COMPARISON: None available. TECHNIQUE: AP view pelvis. AP and oblique views of the left hip. FINDINGS: Metallic prosthesis well-seated in the osseous acetabulum and osseous femur without acute cortical disruption or gross malalignment. No gross loosening. Degenerative changes in the symphysis pubis and the right coxofemoral joint. Multilevel lower spondylosis L4-5, L3-4 and L5-S1. 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 Electronically signed by: Guerrero Singh MD 04/15/2025 11:20 AM GLORIA
[2025-04-15 12:05] LABS: Appearance Urine Clear; Glucose Urine UA Negative (Negative); PH 6.5 (5.0-9.0); Specific Gravity - Urine 1.010 (1.005-1.025); UMIC TRIGGER UA YES
== END 2025-04-15 08:34 | disposition home or self-care (01) ==
LOC: HO.HMGCX 08:33
PROVIDERS: PCP Nurse Practitioner Family; Visit Provider Nurse Practitioner Family
DX: M25.552 Pain in left hip (principal); M54.9 Dorsalgia, unspecified; R30.0 Dysuria; Z23 Encounter for immunization
CPT/HCPCS: 73502; 81001; 81003; 87086; 90471; 90656; 99212

== ENCOUNTER → 2025-04-15 11:06 | Outpatient (BNV) | payer MEDICARE, SELFPAY | PROVIDERS: PCP Nurse Practitioner Family; Visit Provider Radiology Diagnostic Radiology | DX: M25.552 Pain in left hip (principal); Z96.642 Presence of left artificial hip joint | CPT/HCPCS: 73502 ==